=== PATIENT | female | born 1940 | race Caucasian/White ===

== ENCOUNTER 2023-07-16 09:45 | Outpatient (OUT) | payer MEDICARE, OTHER, SELFPAY ==
--- NOTE | 2023-07-16 09:51 | XR_ITS ---
The [address] [address] Patient Name: CAROLINA ZAYAS MRN: [id number] date: 1940 Sex: F Assigned Patient Location: US Current Patient Location: US Accession/Order Number: [id number] Exam Date: 07/16/2023 10:48 Report Date: 07/16/2023 11:27 At the request of: RENETTA REDMOND Procedure: XR abdomen 1V EXAM: XR abdomen 1V HISTORY: Chronic cystitis N30.20 COMPARISON: None. TECHNIQUE: AP view of the abdomen. FINDINGS: Nonobstructive bowel gas pattern is noted. There is no suspicious calcification. The osseous structures are intact. XR/XR abdomen 1V IMPRESSION: Nonobstructive bowel gas pattern. Constipation. No suspicious renal calcification. Electronically authenticated by: BALDO SOTO Date: 07/16/2023 11:27
--- NOTE | 2023-07-16 09:51 | US_ITS ---
The [address] [address] Patient Name: CAROLINA ZAYAS MRN: [id number] date: 1940 Sex: F Assigned Patient Location: US Current Patient Location: US Accession/Order Number: [id number] Exam Date: 07/16/2023 09:58 Report Date: 07/16/2023 17:18 At the request of: RENETTA REDMOND Procedure: US renal BI EXAM: US renal BI HISTORY: Chronic cystitis N30.20 COMPARISON: None. TECHNIQUE: Ultrasound of the kidneys and bladder were obtained. FINDINGS: The right and left kidneys measure 11.8 cm and 11.3 cm respectively. There is normal color flow. There is no solid renal mass. No collecting system dilation. Simple right lower pole cyst, 1.7 cm. Right interpolar cortical 4 mm calcification. The urinary bladder is unremarkable. Prevoid volume of 128 mL. Calcified splenic granulomata. US/US renal BI IMPRESSION: 1. Normal bladder. 2. No evidence for obstructive nephropathy. Electronically authenticated by: NICHELLE PIÑA Date: 07/16/2023 17:18
== END 2023-07-16 09:46 | disposition home or self-care (01) ==
LOC: US 09:45
PROVIDERS: PCP Family Medicine; Visit Provider Physician Assistant
DX: N30.20 Other chronic cystitis without hematuria (principal); N81.4 Uterovaginal prolapse, unspecified
CPT/HCPCS: 74018; 76775

== ENCOUNTER 2024-06-30 08:09 | Outpatient (OUT) | payer MEDICARE, OTHER, SELFPAY ==
--- NOTE | 2024-06-30 08:11 | US_ITS ---
[place] [id number] Patient Name: COREY ZAYAS MRN: [id number] date: 1940 Sex: F Assigned Patient Location: Current Patient Location: Accession/Order Number: [id number] Exam Date: 06/30/2024 08:12 Report Date: 07/01/2024 07:26 At the request of: RENETTA REDMOND Procedure: US renal BI EXAMINATION: US renal BI HISTORY: Kidney Stone COMPARISON: 07/16/2023 TECHNIQUE: Ultrasound examination was performed of the bladder. FINDINGS: Right Kidney: Normal in size, contour and echotexture. The cortex measures 1.1 cm. Areas of anechoic echogenicity measuring up to 1.3 cm, simple cysts. Echogenic foci, nonobstructing nephrolithiasis. No solid cortical mass, hydronephrosis or obstructing nephrolithiasis. Height: 4.79 cm Length: 10.95 cm Width: 5.35 cm Left Kidney: Normal in size, contour and echotexture. The cortex measures 1.0 cm. No solid cortical mass, hydronephrosis or obstructing nephrolithiasis Height: 5.20 cm Length: 11.94 cm Width: 5.11 cm Cholelithiasis observed US/US renal BI IMPRESSION: Nonobstructing right nephrolithiasis Electronically authenticated by: GONZALEZ ELISE Date: 07/01/2024 07:26
--- NOTE | 2024-06-30 08:11 | XR_ITS ---
The [address] [address] Patient Name: COREY ZAYAS MRN: [id number] date: 1940 Sex: F Assigned Patient Location: US Current Patient Location: US Accession/Order Number: [id number] Exam Date: 06/30/2024 08:20 Report Date: 07/01/2024 07:27 At the request of: RENETTA REDMOND Procedure: XR abdomen 1V EXAMINATION: XR abdomen 1V HISTORY: Kidney Stone COMPARISON: 07/16/2023 FINDINGS: KIDNEY/URETER - RIGHT: No visible renal or ureteral calcifications. KIDNEY/URETER - LEFT: No visible renal or ureteral calcifications. PELVIS: No visible ureteral calcifications. Any visible calcifications favor phleboliths. BOWEL: No abnormal dilation or deviation. BONES: No acute abnormality. Right hip arthroplasty. Moderate to severe degenerative changes. Posterior decompression L3 OTHER: Negative. No abnormal gaseous collections. XR/XR abdomen 1V IMPRESSION: No urinary tract calculi observed Electronically authenticated by: GONZALEZ ELISE Date: 07/01/2024 07:27
--- OUTSIDE RECORDS SUMMARY | 2024-06-30 08:12 | XMS_ITS | CCD ---
Author Organization [facility] Care Team Providers Care Food And Drug Inspector Name Role Phone DR GONZALEZ BAIRES Attending Unavailable VIRY, DR ROTH Consulting Unavailable VIRY, DR ROTH Primary Care Unavailable VIRY, DR ROTH Admitting Unavailable Gonzalez Baires Unavailable Tyler Medina Unavailable [phone] Artur Oliveira II Unavailable Rickie Leach Unavailable DO Gonzalez Baires Primary Care Provider MD Artur Oliveira II Attending Provider DO Gonzalez Baires Primary Care Provider MD Artur Oliveira II Attending Provider DO Gonzalez Baires Primary Care Provider MD Artur Oliveira II Attending Provider DO Gonzalez Baires Attending Provider DO Gonzalez Baires Primary Care Provider DO Gonzalez Baires Attending Provider MD Artur Oliveira II Attending Provider [phone] DO Gonzalez Baires Primary Care Provider MD Artur Oliveira II Attending Provider DO Gonzalez Baires Primary Care Provider [phone] MD Artur Oliveira II Attending Provider DO Gonzalez Baires Primary Care Provider [phone] MD Artur Oliveira II Attending Provider DO Gonzalez Baires Attending Provider [phone] DO Gonzalez Baires Primary Care Provider NON STAFF Attending Provider Unavailable Gonzalez Baires Primary Care Physician [phone] MD Vannessa Suresh Attending Provider [phone] DO Gonzalez Baires Primary Care Provider DO Gonzalez Baires Attending Provider GONZALEZ BAIRES Referring Unavailable GONZALEZ BAIRES Primary Care Unavailable DO Gonzalez Baires Primary Care Provider DO Gonzalez Baires Attending Provider MD Vannessa Suresh Attending Provider DO Gonzalez Baires Primary Care Provider [phone] DO Gonzalez Baires Attending Provider [phone] Gonzalez Baires Admitting Unavailable Viry, Gonzalez Attending Unavailable Viry, Gonzalez Admitting Unavailable Viry, Gonzalez Primary Care Unavailable Gonzalez Baires Attending Unavailable Viry, Gonzalez Admitting Unavailable Viry, Gonzalez Primary Care Unavailable Viry, Gonzalez Attending Unavailable Viry, Gonzalez Admitting Unavailable Viry, Gonzalez Primary Care Unavailable Gonzalez Baires Attending Unavailable Viry, Gonzalez Attending Unavailable Viry, Gonzalez Admitting Unavailable Vannessa Suresh Admitting Unavailable Vannessa Suresh Attending Unavailable Viry, Gonzalez Primary Care Unavailable Vannessa Suresh M. Admitting Unavailable LueVannessa M. Attending Unavailable Vannessa Suresh. Referring Unavailable RUYALESSANDRO KEENAN Admitting Unavailab le RUYALESSANDRO Attending Unavailab le ALESSANDRO ZABALA Attending Unavailab ALESSANDRO Sanches Referring Unavailab Gonzalez Sage Referring Unavailable ALESSANDRO ZABALA Attending Unavailab le RUYALESSANDRO Attending Unavailab le RUYALESSANDRO Attending Unavailab le RUY, ALESSANDRO Snow Attending Unavailab le RUYALESSANDRO Attending Unavailab le Allergies Allergy Classification Reported Allergen(s) Allergy Type Date of Onset Reaction(s) Facility (20 sources) atorvastatin; Translations: [atorvastatin] Drug Allergy Muscle pain (finding) [facility] (20 sources) ezetimibe; Translations: [ezetimibe] Drug Allergy Poor short-term memory (finding) [facility] (20 sources) fluticasone / salmeterol; Translations: [fluticasone-sanam meterol] Drug Allergy Unknown [facility] (1 source) Coffee; Translations: [COFFEE] Propensity to adverse reactions to food (disorder) [facility] (1 source) Multivitamin preparation; Translations: [MULTIVITAMIN] Drug Allergy 7 [facility] (1 source) FLUTICASONE PROPION-SALMETER OL; Translations: [FLUTICASONE PROPION-SALMETER OL] Propensity to adverse reactions to drug (disorder) 7 [facility] (1 source) atorvastatin Drug Allergy 4 [facility] (1 source) ezetimibe Drug Allergy 4 [facility] (1 source) fluticasone Drug Allergy 4 [facility] (1 source) salmeterol Drug Allergy 4 [facility] (1 source) atorvastatin; Translations: [Lipitor] Drug Allergy [facility] (1 source) ezetimibe; Translations: [Zetia] Drug Allergy [facility] (1 source) fluticasone / salmeterol; Translations: [Advair Diskus] Drug Allergy [facility] Medications Current Medications Medication Drug Class(es) Dates Sig (Normalized) Sig (Original) 8 hr acetaminophen 650 mg extended release oral tablet (20 sources) Start: 09-29-2022 Acetaminophen (Tylenol 8 Hour) 650 mg Tablet Extended Release Active 1300 MG PO Three times daily September 29, 2022 1:00am Start: 09-26-2022 take 2 tablets by mo uth every eight hours for pain Acetaminophen 500 MG 2 tablets for pain Orally every 8 hrs for 30 days Med to Bed Upon Discharge DOS: 10/13/2022 Sep, Active Start: 09-26-2022 take 2 capsules by m outh every eight hours Tylenol 325 MG 2 capsule as needed Orally 3 times a day Active take 2 capsules by m outh every eight hours Tylenol Active [id number] 200 actuat albuterol 0.09 mg/actuat metered dose inhaler (14 sources) beta2-Adrenergic Agonist Start: 09-29-2022 take 1 puff(s) by inhalation once daily Albuterol Sulfate (Proair Hfa) 90 mcg/actuation Hfa Aerosol Inhaler Active 1 PUFF INHALATION Daily September 29, 2022 1:00am ascorbic acid 500 mg oral tablet (9 sources) Vitamin C Start: 06-23-2022 take 1 tablet by mouth every twenty-four hours Vitamin C 500 MG 1 tablet Orally Once a day for 30 day(s) Jun, Active Aspir-81 81 MG (14 sources) take 1 tablet by mouth once nuha y Aspir-81 81 MG 1 tablet Orally Once a day Active aspirin 81 mg oral capsule (20 sources) Platelet Aggregation Inhibitor, Nonsteroidal Anti-inflammatory Drug Start: 07-09-2023 take 1 mg by mouth every twenty-four hours aspirin 81 mg oral capsule mg cap(s), Oral, q24hr, Refills(s) 0 Start Date: 07/09/23 Status: Ordered Start: 09-26-2022 take 1 capsule by mo uth twice daily Aspirin 81 MG 1 capsule Orally Twice a day for 35 days Med to Bed Upon Discharge DOS: 10/13/2022 Sep, Active Start: 08-17-2018 take 1 tablet by mouth once da aditya Aspirin (Aspir-81) 81 mg Tablet,Delayed Release (Dr/Ec) Active 81 MG PO Daily August 17, 2018 1:00am Baclofen (5 sources) gamma-Aminobutyric Acid-ergic Agonist Start: 10-13-2023 Baclofen 10/Diazepam 10/Gabapentin 60 Baclofen 10/Diazepam 10/Gabapentin 60, Vaginal, Daily Start Date: 10/13/23 Status: Ordered celecoxib (20 sources) Nonsteroidal Anti-inflammatory Drug Start: 03-24-2024 take 1 capsule by mouth twice daily at mealtime Celecoxib Active 0 .ROUTE .COMPLEX 180 March 24, 2024 10:37am take 1 capsule by mouth twice a day with food Start: 09-02-2021 End: 03-24-2024 celecoxib 200 mg Cap 180 EA, 0 Refill(s), take 1 capsule by mouth twice a day with food, Refills(s) 0 Start Date: 07/09/23 Status: Ordered cephalexin 250 mg oral capsule (20 sources) Cephalosporin Antibacterial Start: 12-15-2023 End: 06-12-2024 take 250 mg by mouth every other day Cephalexin Active 250 MG PO .qod April 26, 2024 12:00am Start: 10-22-2023 take 1 capsule by mo uth every twenty-four hours Cephalexin 250 MG 1 capsule Orally Once a day Oct, Active Start: 10-13-2023 End: 04-10-2024 take 1 capsule by mouth every twenty-four hours Keflex 250 mg Cap 250 mg = 1 cap(s), Oral, q24hr, X 90 day(s), # 90 cap(s), Refills(s) 1, [facility]: [id number], 157, cm, 10/13/23 11:13:00 EST, Height/Length Dosing, 68, kg, 10/13/23 11:13:00 EST, Weight Dosing Start Date: 10/13/23 Stop Date: 04/10/24 Status: Ordered Start: 03-20-2023 take 1 capsule by mo uth every eight hours Cephalexin 500 MG 1 capsule Orally tid for 5 days May, Not-Taking/PRN take 1 tablet by elpidio every twenty-four hours Cephalexin 250 MG 1 tablet Orally Once a day will start 10/25 for 3 months Active Zyrtec (20 sources) Histamine-1 Receptor Antagonist Start: 07-09-2023 Zyrtec Daily, Refill s(s) 0 Start Date: 07/09/23 Status: Ordered Start: 03-05-2022 take 10 mg by mouth once daily at bedtime Cetirizine Active 10 MG PO Daily at bedtime September 29, 2022 1:00am Start: 03-05-2022 cholecalciferol 0.05 mg oral capsule (1 source) Vitamin D Start: 04-26-2024 take 2000 [IU] by mouth once daily Cholecalciferol (Vitamin D3) Active 2000 UNIT PO Daily April 26, 2024 12:00am ciprofloxacin 500 mg oral tablet (13 sources) Quinolone Antimicrobial Start: 07-27-2023 End: 07-30-2023 take 1 tablet by mouth every twelve hours Cipro 500 mg Tab 500 mg = 1 tab(s), Oral, q12hr, X 3 day(s), # 6 tab(s), Refills(s) 0, [facility]: [facility] #[id number], 157, cm, 07/17/23 12:31:00 EDT, Height/Length Dosing, 68.4, kg, 07/14/23 10:02:00 EDT, Weight Dosing Start Date: 07/27/23 Stop Date: 07/30/23 Status: Ordered Start: 04-24-2021 take 1 tablet by elpidio th every twelve hours Cipro 500 MG 1 tablet Orally bid Apr, Not-Taking Co Q10 200 MG (1 source) take 1 capsule by mouth once daily Co Q10 200 MG 1 capsule with a meal Orally Once a day Active CoQ10 (8 sources) Start: 07-09-2023 CoQ10 Oral, Daily, Refills(s) 0 Start Date: 07/09/23 Status: Ordered Cranberry preparation (9 sources) Non-Standardized Food Allergenic Extract, Non-Standardized Plant Allergenic Extract Cranberry Active docusate sodium 50 mg / sennosides, snf 8.6 mg oral tablet (7 sources) Start: 09-26-2022 take 2 tablets by mouth every twenty-four hours Senokot S 8.6-50 MG 2 tablets Orally Once a day for 30 day(s) Med to Bed Upon Discharge DOS: 10/13/2022 Sep, Active estradiol 0.1 mg/ml vaginal cream (8 sources) Estrogen Start: 06-23-2024 Estrace 0.1 mg/g Cream 1 gm, Vaginal, As Directed, 42.5 gm, Refill(s) 1, Apply a pea-sized amount to the vagina/urethra 3x per week for maintenance, [facility] #[id number], 157, cm, 06/23/24 9:18:00 EDT, Height/Length Dosing, 68.1, kg, 06/23/24 9:18:00 EDT, Weight Dosing Start Date: 06/23/24 Status: Ordered Start: 07-14-2023 Estrace 0.1 mg /g Cream 1 gm, Vaginal, As Directed, 42.5 gm, Refill(s) 1, Apply a pea-sized amount to the vagina/urethra nightly x 3wks then 3x per week for maintenance, [facility] #[id number], 157, cm, 07/14/23 10:02:00 EDT, Height/Length Dosing, 68.4, kg, 07/14/23 10:02:00 EDT, Weight Dosing Start Date: 07/14/23 Status: Ordered levoFLOXacin 500 mg oral tablet (1 source) Quinolone Antimicrobial Start: 10-22-2023 take 1 tablet by mouth every twenty-four hours levoFLOXacin 500 MG 1 tablet Orally Once a day Oct, Active Magnesium (20 sources) Start: 04-26-2024 take 250 mg by mouth once daily Magnesium Active 250 MG PO Daily April 26, 2024 12:00am Start: 08-17-2018 End: 09-29-2022 take 250 mg by mouth twice daily Magnesium Discontinued 250 MG PO Twice daily August 17, 2018 1:00am September 29, 2022 3:24pm Start: 08-17-2018 End: 09-29-2022 take 250 mg by mouth twice daily Magnesium Discontinued 250 MG PO Twice daily August 17, 2018 12:00am September 29, 2022 2:24pm Start: 08-17-2018 take 250 mg by mouth twice daily Magnesium Active 250 MG PO Twice daily August 17, 2018 12:00am Start: 08-17-2018 take 250 mg by mouth twice daily Magnesium Active 250 MG PO Twice daily August 17, 2018 1:00am take 1 tablet by elpidio th twice daily Magnesium 250 MG 1 tablet with a meal Orally bid Active 24 hr mirabegron 50 mg extended release oral tablet (6 sources) beta3-Adrenergic Agonist Start: 10-13-2023 End: 06-18-2025 take 1 tablet by mouth once daily Myrbetriq 50 mg oral tablet, extended release 50 mg = 1 tab(s), Oral, Daily, X 90 day(s), # 90 tab(s), Refills(s) 3, Pharmacy: [facility] #[id number], 157, cm, 06/23/24 9:18:00 EDT, Height/Length Dosing, 68.1, kg, 06/23/24 9:18:00 EDT, Weight Dosing Start Date: 06/23/24 Stop Date: 06/18/25 Status: Ordered nitrofurantoin, macrocrystals 50 mg oral capsule (2 sources) Nitrofuran Antibacterial Start: 06-17-2023 take 1 capsule by mouth once daily at mealtime Nitrofurantoin Macrocrystal 50 MG 1 capsule Orally qd with food for 30 days Jun, Active Miralax (20 sources) Osmotic Laxative Start: 07-09-2023 take 1 g by mouth once daily MiraLax gm, Oral, Daily, Refill(s) 0 Start Date: 07/09/23 Status: Ordered Start: 09-26-2022 MiraLax 17 GM 1 packet mixed with 8 ounces of fluid Orally Once a day for 7 days Med to Bed Upon Discharge DOS: 10/13/2022 Sep, Active Start: 04-23-2021 End: 04-26-2024 Polyethylene Glycol 3350 (Mi ralax) 17 gram Powder In Packet Discontinued 8.5 GM PO Daily April 23, 2021 12:00am April 26, 2024 10:37am Start: 04-23-2021 Polyethylene G lycol 3350 (Miralax) 17 gram Powder In Packet Active 17 GM PO Daily April 22, 2021 11:00pm MiraLax - as dir ected Orally Once a day Active predniSONE 20 mg oral tablet (2 sources) Start: 04-30-2022 take 1 tablet by mouth every eight hours predniSONE 20 MG 1 tablet Orally 3 times a day for 5 days Apr, Active probiotic (1 source) Start: 04-26-2024 probiotic Acti ve PO April 26, 2024 12:00am Sennosides (Senokot) 8.6 mg tablet (1 source) Start: 04-26-2024 take 2 tablets by mouth once daily at bedtime Sennosides (Senokot) 8.6 mg tablet Active 17.2 MG PO Daily at bedtime April 26, 2024 12:00am sertraline 25 mg oral tablet (20 sources) Serotonin Reuptake Inhibitor Start: 10-01-2022 take 1 tablet by mouth every twenty-four hours Zoloft 25 MG 1 tablet Orally Once a day Sep, Active ubidecarenone 200 mg oral capsule (20 sources) take 1 capsule by mouth every twenty-four hours Co Q10 200 MG 1 capsule with a meal Orally Once a day Active ubiquinol 200 mg oral capsule (16 sources) Start: 08-17-2018 take 200 mg by mouth once daily Coq10 (Ubiquinol) Active 200 MG PO Daily August 17, 2018 1:00am vibegron 75 MG Oral Tablet [Gemtesa] (2 sources) Start: 07-27-2023 take 1 tablet by mouth once daily Gemtesa 75 mg oral tablet 75 mg = 1 tab(s), Oral, Daily, # 30 tab(s), Refills(s) 11, [facility]acy: [facility] #[id number], 157, cm, 07/17/23 12:31:00 EDT, Height/Length Dosing, 68.4, kg, 07/14/23 10:02:00 EDT, Weight Dosing Start Date: 07/27/23 Status: Ordered Completed/Discontinued Medications Medication Drug Class(es) Dates Sig (Normalized) Sig (Original) amitriptyline hydrochloride 25 mg oral tablet (16 sources) Tricyclic Antidepressant Start: 08-17-2018 End: 09-29-2022 take 25 mg by mouth once daily Amitriptyline Discontinued 25 MG PO Daily August 17, 2018 1:00am September 29, 2022 3:26pm bisacodyl 5 mg delayed release oral tablet (16 sources) Stimulant Laxative Start: 04-04-2019 End: 09-29-2022 take 4 tablets by mouth once daily Bisacodyl (Dulcolax (Bisacodyl)) 5 mg Tablet,Delayed Release (Dr/Ec) Discontinued 4 TAB PO Daily April 04, 2019 12:00am September 29, 2022 3:25pm ergocalciferol 1.25 mg oral capsule (20 sources) Provitamin D2 Compound Start: 09-29-2022 End: 04-26-2024 take 1 capsule by mouth every week Ergocalciferol (Vitamin D2) (Vitamin D2) 1,250 mcg (50,000 unit) capsule Discontinued 1250 MCG PO every week September 29, 2022 1:00am April 26, 2024 10:38am wednesdays take 1 capsule by mouth every we ek Ergocalciferol 1.25 MG (19320 UT) 1 capsule Orally once a week for 30 day(s) Active esomeprazole 20 mg delayed release oral capsule (16 sources) Proton Pump Inhibitor Start: 08-17-2018 End: 04-23-2021 take 1 capsule by mouth once daily Esomeprazole Magnesium (Nexium) 20 mg Capsule,Delayed Release(Dr/Ec) Discontinued 20 MG PO Daily August 17, 2018 1:00am April 23, 2021 1:05pm ferrous sulfate 325 mg oral tablet (20 sources) Start: 06-23-2022 End: 04-26-2024 take 1 tablet by mouth three times daily Ferrous Sulfate (Ferosul) 325 mg (65 mg iron) tablet Discontinued 325 MG PO Three times daily September 29, 2022 1:00am April 26, 2024 10:37am hydrOXYzine hydrochloride 10 mg oral tablet (16 sources) Antihistamine Start: 08-17-2018 End: 09-29-2022 take 10 mg by mouth once daily Hydroxyzine Hcl Discontinued 10 MG PO Daily August 17, 2018 1:00am September 29, 2022 3:24pm magnesium oxide 400 mg oral tablet (16 sources) Start: 08-17-2018 End: 04-04-2019 take 400 mg by mouth once daily Magnesium Oxide Discontinued 400 MG PO Daily August 17, 2018 1:00am April 04, 2019 12:32pm nitrofurantoin, macrocrystals 25 mg / nitrofurantoin, monohydrate 75 mg oral capsule (9 sources) Nitrofuran Antibacterial Start: 04-08-2023 take 1 capsule by mouth every twelve hours Macrobid 100 MG 1 capsule with food Orally bid for 7 days Mar, Not-Taking/PRN omeprazole 40 mg delayed release oral capsule (20 sources) Proton Pump Inhibitor Start: 09-28-2018 End: 03-08-2024 omeprazole 40 mg Cap-DR 90 EA, 0 Refill(s), take 1 capsule by mouth once daily, Refills(s) 0 Start Date: 07/09/23 Status: Ordered ondansetron 8 mg oral tablet (7 sources) Serotonin-3 Receptor Antagonist Start: 09-26-2022 take 1 tablet by mouth three times daily as needed for nausea Ondansetron HCl 8 MG 1 tablet as needed for nausea Orally Three times a day for 10 days Med to Bed Upon Discharge DOS: 10/13/2022 Sep, Not-Taking oxaprozin 600 mg oral tablet (16 sources) Nonsteroidal Anti-inflammatory Drug Start: 08-17-2018 End: 09-29-2022 take 600 mg by mouth once daily Oxaprozin Discontinued 600 MG PO Daily August 17, 2018 1:00am September 29, 2022 3:25pm rosuvastatin calcium 10 mg oral tablet (20 sources) HMG-CoA Reductase Inhibitor Start: 05-21-2017 rosuvastatin 10 mg Tab 90 EA, 0 Refill(s), take 1 tablet by mouth once daily, Refills(s) 0 Start Date: 07/09/23 Status: Ordered Problems Active Problems Problem Classification Problem Date Documented Da te Episodic/Chronic Abdominal hernia (20 sources) Hiatal hernia; Translations: [Diaphragmatic hernia without obstruction or gangrene] Episodic Anxiety disorders (20 sources) Social phobia; Translations: [Social phobia, unspecified] Chronic Asthma (20 sources) Asthma; Translations: [Unspecified asthma, uncomplicated] Onset: 09-02-2021 Resolved: 03-05-2022 Chronic Calculus of urinary tract (10 sources) Kidney stone; Translations: [Calculus of kidney] Onset: 09-01-2023 Episodic Cardiac dysrhythmias (20 sources) Premature beats; Translations: [Other premature depolarization] Chronic Diabetes mellitus without complication (14 sources) Hyperglycemia, unspecified; Translations: [Hyperglycemia] Onset: 09-02-2021 Resolved: 03-05-2022 Episodic Diseases of white blood cells (20 sources) Leukocytosis; Translations: [Elevated white blood cell count, unspecified] Chronic Disorders of lipid metabolism (20 sources) Hyperlipidemia, unspecified; Translations: [Hyperlipidemia] Onset: 02-22-2021 Resolved: 03-05-2022 Chronic Esophageal disorders (20 sources) Stricture of esophagus; Translations: [Esophageal obstruction] Onset: 09-02-2021 Resolved: 05-06-2022 Chronic Genitourinary symptoms and ill-defined conditions (12 sources) Bladder pain; Translations: [Chronic bladder pain] Onset: 07-27-2023 Chronic Genitourinary symptoms and ill-defined conditions (2 sources) Nocturia Onset: 03-05-2022 Resolved: 03-05-2022 Episodic Menopausal disorders (1 source) Atrophic vaginitis; Translations: [Postmenopausal atrophic vaginitis] Onset: 07-27-2023 Chronic Nutritional deficiencies (20 sources) Vitamin D deficiency; Translations: [Vitamin D deficiency, unspecified] Chronic Osteoarthritis (20 sources) Arthritis; Translations: [Unspecified osteoarthritis, unspecified site] Onset: 09-02-2021 Resolved: 03-05-2022 Chronic Osteoporosis (20 sources) Primary osteoporosis; Translations: [Age-related osteoporosis without current pathological fracture] Chronic Other acquired deformities (20 sources) Acquired postural kyphosis; Translations: [Unspecified kyphosis, thoracic region] Chronic Other acquired deformities (1 source) Unspecified kyphosis, thoracic region Onset: 09-02-2021 Resolved: 09-02-2021 Chronic Other aftercare (20 sources) Patient encounter status; Translations: [Aftercare following joint replacement surgery] Chronic Other aftercare (3 sources) Aftercare following joint replacement surgery Chronic Other aftercare (6 sources) Other correction (current) drug therapy; Translations: [[employer] WORKER CURRENT DRUG THERAPY] Onset: 02-27-2021 Resolved: 03-05-2022 Episodic Other connective tissue disease (20 sources) Hip joint prosthesis present; Translations: [Presence of right artificial hip joint] Chronic Other connective tissue disease (20 sources) History of total hip arthroplasty; Translations: [Presence of right artificial hip joint] Chronic Other connective tissue disease (6 sources) Presence of right artificial hip joint Chronic Other diseases of bladder and urethra (5 sources) Detrusor overactivity; Translations: [Overactive bladder] Onset: 07-27-2023 Chronic Other diseases of bladder and urethra (6 sources) Overactive bladder 09-01-2023 Chronic Other diseases of bladder and urethra (1 source) Urethral stricture; Translations: [Other urethral stricture, female] Onset: 07-27-2023 Episodic Other gastrointestinal disorders (20 sources) Dysphagia; Translations: [Dysphagia, unspecified] Episodic Other gastrointestinal disorders (16 sources) Constipation; Translations: [Constipation, unspecified] 07-14-2023 Episodic Other gastrointestinal disorders (4 sources) Constipation, unspecified; Translations: [Constipation, unspecified] Onset: 07-14-2023 Episodic Other nervous system disorders (1 source) Paresthesia of hand ; Translations: [Anesthesia of skin] 04-26-2024 Episodic Other nervous system disorders (1 source) Anesthesia of skin; Translations: [Disturbance of skin sensation] 04-26-2024 Episodic Other non-traumatic joint disorders (20 sources) Arthropathy; Translations: [Arthropathy, unspecified] Chronic Other non-traumatic joint disorders (3 sources) Pain in right hip Onset: 03-19-2022 Resolved: 03-19-2022 Episodic Other non-traumatic joint disorders (2 sources) Pain in right knee Onset: 03-19-2022 Resolved: 03-19-2022 Episodic Other nutritional; endocrine; and metabolic disorders (1 source) Abnormal weight loss; Translations: [ABNORMAL WEIGHT LOSS] Onset: 02-27-2021 Episodic Other nutritional; endocrine; and metabolic disorders (4 sources) Abnormal weight gain Onset: 09-02-2021 Resolved: 03-05-2022 Episodic Other screening for suspected conditions (not mental disorders or infectious disease) (20 sources) Mammography abnormal; Translations: [Other abnormal and inconclusive findings on diagnostic imaging of breast] Onset: 09-02-2021 Resolved: 03-05-2022 Episodic Prolapse of female genital organs (10 sources) Uterovaginal prolapse; Translations: [Uterovaginal prolapse, unspecified] Onset: 07-14-2023 Chronic Spondylosis; intervertebral disc disorders; other back problems (8 sources) Degeneration of lumbar intervertebral disc 07-09-2023 Chronic Urinary tract infections (2 sources) Chronic cystitis; Translations: [Other chronic cystitis without hematuria] Onset: 07-14-2023 Chronic Urinary tract infections (20 sources) Cystitis, unspecified without hematuria; Translations: [Recurrent urinary tract infection] Onset: 09-02-2021 Resolved: 03-05-2022 Episodic Past or Other Problems Problem Classification Problem Date Documented Da te Episodic/Chronic Malaise and fatigue (2 sources) Weakness Onset: 09-02-2021 Resolved: 03-05-2022 Episodic Other and unspecified benign neoplasm (1 source) Benign lipomatous neoplasm, unspecified Onset: 03-05-2022 Resolved: 03-05-2022 Episodic Other connective tissue disease (1 source) Pain in leg, unspecified Onset: 09-02-2021 Resolved: 09-02-2021 Episodic Other non-traumatic joint disorders (2 sources) Pain in unspecified hip Onset: 09-02-2021 Resolved: 03-05-2022 Episodic Residual codes; unclassified (1 source) Asymptomatic menopausal state Onset: 09-02-2021 Resolved: 09-02-2021 Episodic Residual codes; unclassified (1 source) Acquired absence of other genital organ(s) Onset: 09-02-2021 Resolved: 12-20-2021 Episodic Spondylosis; intervertebral disc disorders; other back problems (2 sources) Pain in thoracic spine; Translations: [Cervicalgia] Onset: 09-02-2021 Resolved: 09-02-2021 Episodic Results Test Name Value Interpretation Reference Range Facility Ambulatory Visit Summaryon 1 Ambulatory Visit Summary Ambulatory Visit Summary CAROLINA BARAJAS :1940 Visit Date:06/23/2024 Ambulatory Visit Instructions Your Diagnosis Frequent UTI Chronic bladder pain Kidney stones [facility] (overactive bladder) Your Care Team Attending Physician - MARY ZABALA PA-C Primary Care Physician - Gonzalez Baires DO This Is Your Medications List estradiol topical (Estrace 0.1 mg/g Cream) mirabegron (Myrbetriq 50 mg oral tablet, extended release) Contact prescribing physician if questions or concerns Non-Formulary Medication (Baclofen 10/Diazepam 10/Gabapentin 60) aspirin (aspirin 81 mg oral capsule) celecoxib (celecoxib 200 mg Cap) cetirizine (Zyrtec) omeprazole (omeprazole 40 mg Cap-DR) rosuvastatin (rosuvastatin 10 mg Tab) ubiquinone (CoQ10) Procedures Performed Cystourethroscopy with dilation of urethral stricture (07/27/2023), Cystoscopy (02/20/2015), Cystocele (1996), Female rectocele (1996), Tonsillectomy (1950), Cataract, Colonoscopy, Hip replacement, Hysterectomy, Knee. Discharge Vitals Heart Rate (Peripheral) 60 Respiratory Rate 19 Blood Pressure 148/74 Height 157 cm Height 62 in Weight 68.1 kg Weight 149.82 lb BMI 27.63 Medications What How Much When Instructions Changed estradiol topical (Estrace 0.1 mg/ g Cream) 1 Gram Vaginal As Directed Apply a pea-sized amount to the vagina/ urethra 3x per week for maintenance Pickup at [facility] Unchanged mirabegron (Myrbetriq 50 mg oral tablet, extended release) 1 Tablets By Mouth Every day Duration: 90 Days Pickup at [facility] Unchanged aspirin (aspirin 81 mg oral capsule) By Mouth Every 24 hours Contact prescribing physician if questions or concerns Unchanged celecoxib (celecoxib 200 mg Cap) 180 EA, 0 Refill(s), take 1 capsule by mouth twice a day with food Contact prescribing physician if questions or concerns Unchanged cetirizine (Zyrtec) Every day Contact prescribing physician if questions or concerns Unchanged Non-Formulary Medication (Baclofen 10/ Diazepam 10/ Gabapentin 60) Vaginal Every day Contact prescribing physician if questions or concerns Unchanged omeprazole (omeprazole 40 mg Cap-DR) 90 EA, 0 Refill(s), take 1 capsule by mouth once daily Contact prescribing physician if questions or concerns Unchanged rosuvastatin (rosuvastatin 10 mg Tab) 90 EA, 0 Refill(s), take 1 tablet by mouth once daily Contact prescribing physician if questions or concerns Unchanged ubiquinone (CoQ10) By Mouth Every day Contact prescribing physician if questions or concerns Pharmacy Information [facility]: [address] [place], [place] [id number] [phone] Allergies Advair Diskus Lipitor (Myalgia) Zetia (Short term memory loss) Problems Ongoing - Any problem that you are currently receiving treatment for. Anxiety Arthritis Asthma Chronic bladder pain Constipation Cystocele with rectocele DDD (degenerative disc disease), lumbar Frequent UTI Hyperglycemia Hyperlipidemia Kidney stones OAB (overactive bladder) Patient Survey You may receive a survey via text or e-mail asking about your office visit. Please share your experience with us by completing your survey. We appreciate your feedback and thank you for choosing us for your care. Normal [facility] Reminderson 06-23-2024 Reminders Reminders From: Kya Cline To: [place] - Administrative; Sent: 06/23/2024 11:24:48 EDT Show up: 09/23/2024 11:24:00 EST Subject: Ambulatory Reminder Due Date/Time: 12/22/2024 11:24:00 EDT Reminder/Recall Patient needs scheduled with for a 6m f/u, due back December 2024 Normal [facility] Reminders Reminders From: Amanda Clark To: EU - Administrative; Sent: 06/23/2024 09:42:37 EDT Show up: 10/15/2024 09:42:00 EST Subject: f/u in Spring Due Date/Time: 11/07/2024 09:42:00 EST Reminder/Recall Patient needs f/u with Christel Zabala in the Spring 2024 Normal [facility] Urology Office/Clinic Noteon 06-23-2024 Urology Office/Clinic Note Urology Office/Clinic Note Chief Complaint 6 month HPI Staff 84 yr old here for 6 mth f/u DX: Chronic Bladder Pain, Frequent UTI, OAB & Kidney Stone. S/P Cysto/UD 07/27/[address] Suresh Pt. taking Myrbetriq 50mg qd and Estrace cream 3x/week Dysuria: no Incomplete bladder emptying: no Hematuria: UA shows trace today Frequency: 2-3 hours Urgency: no Nocturia: 2x's Stream: slow stream Post void dripping: no Wearing pads/ Depends: no Urge incontinence: rarely Stress incontinence: no Incontinence without Sensory Awareness: no Abdominal pain: occasionally will have pressure Flank pain: no Review of Systems PHQ Score Initial Depression Screen Score: 0 SCORE no fever, chills, malaise, myalgia. no rash/lesions. no chest pain, palpitations, or SOB. no abdominal pain, nausea, vomiting. no unilateral calf swelling, redness, pain Physical Exam Vitals & Measurements HR: 60(Peripheral) RR: 19 BP: 148/74 HT: 62 in HT: 157 cm WT: 68.1 kg WT: 149.82 lb BMI: 27.63 General: nontoxic, NAD Mouth: moist mucosa Lungs: normal respiratory effort Cardio: regular rate, good distal perfusion Abdomen: nondistended, no suprapubic distention or tenderness, no CVA tenderness Neurologic: Grossly normal Skin: No rashes or suspicious lesions Assessment/Plan 1. Frequent UTI (N39.0: Urinary tract infection, site not specified) Last UTI was Sep 2023. UA today shows TRACE intact blood only. Asx. Uses Estrace cream 3x/wk. Pt not on OTC preventives, could not tolerate d-mannose/cranberry. 10/13/23 we had her start low dose keflex (250mg) daily x 90 days. Reduced this to QOD 12/15/23. TODAY: Pt now reports she only takes the Keflex every now and then if she starts to feel a slight burn. Risks/benefits discussed. Pt ok remaining w this plan for now. Will call when she needs a refill. Continues on Estrace. Risks/benefits discussed. Pt ok remaining on. Refilled today. Ordered: Complex E&M Add on G2211 E&M of Est. Patient Moderate 30-39 Min 58230 Urnls Dip Stick Auto w/o Microscopy POC 37073 2. Chronic bladder pain (R39.82: Chronic bladder pain) S/p Cysto/UD 07/27/[address] Suresh. Marked improvement immediately following UD, approx 80% better per pt. Did not last. Per PFPT at [facility] [place]: PE - extensive spasming and scarring. External myofascial release and stretching but only provides relief of pain x24hrs. Pt has been doing down-training and stretching at home. Pain 1/10 for 24hrs after PT, 7/10 otherwise. Constant. Azo helps some. Better after passing flatus. Worse after urination and prolonged sitting. 10/13/23 we started compounded vaginal suppository via [facility] - Baclofen 10mg/Diazepam 10mg/Gabapentin 60mg. Pt reports she Stopped taking suppository after a few weeks due to vaginal soreness. Continued PFPT at [facility] [place], using pelvic wand and doing stretching w good results. TODAY: Has good days and bad days, but overall much better than when she first started coming here. Will have sometimes week and month long stretches with no symptoms. When pain returns, she will take Keflex x 2 days and increase her PFPT stretching and this resolves sx. Very pleased w overall urinary status. Ordered: Complex E&M Add on G2211 E&M of Est. Patient Moderate 30-39 Min 74948 US Renal 3. Kidney stones (N20.0: Calculus of kidney) KATI 07/16/23 [facility] - simple RLP 1.7 cm cyst. R interpolar cortical 4 mm stone. KUB 07/16/23 [facility] - no stones id'd. TODAY: No recent flank pain, gross hematuria, stone passage. Will update imaging. -KUB/KATI now. Call pt w results. Ordered: Complex E&M Add on G2211 E&M of Est. Patient Moderate 30-39 Min 24106 US Renal XR Abdomen 1 View 4. OAB (overactive bladder) (N32.81: Overactive bladder) S/p Cysto/UD 07/27/[address] Suresh. [facility] MIX'sepideh due to cost. Started Myrbetriq 50mg. Not a candidate for antichols. TODAY: Pt is taking __Myrbetriq 50mg and is highly satisfied with overall symptom control. BBSQ _9 with good control reported by pt. Current side effects: none Today we discussed the following options: Decrease dose yes, this was discussed Increase dose n/a Discontinue med and switch to alternative yes, this was discussed Pt has elected to: stay on same medication at same dose. Risks, benefits, side effects discussed. Ordered: Complex E&M Add on G2211 E&M of Est. Patient Moderate 30-39 Min 26646 US Renal Orders: estradiol topical, 1 gm, Vaginal, As Directed, 42.5 gm, Refill(s) 1, Apply a pea-sized amount to the vagina/urethra 3x per week for maintenance, [facility], 157, cm, 06/23/24 9:18:00 EDT, Height/Length Dosing, 68.1, kg, 06/23/24 9:18:00 EDT, Weight Dosing mirabegron, 50 mg = 1 tab(s), Oral, Daily, X 90 day(s), # 90 tab(s), Refills(s) 3, Pharmacy: [facility], 157, cm, 06/23/24 9:18:00 EDT, Height/Length Dosing, 68.1, kg, 06/23/24 9:18:00 EDT, Weight Dosing Follow-up With When Contact Information MARY ZABALA PA-C, URL Wi (more content not included)... Normal [facility] Comment on above: Result Comment: Elec tronically Signed By: MARY ZABALA PA-C\.br\Date and Time Signed: 06/23/24 09:43 EDT A1C with Estimated Average G kaden 04-19-2024 Glucose [Mass/Vol] 117 mg/dL Normal [facility] Comment on above: Result Comment: PERF ORMED BY: [facility] [address] [place] [address] PATHOLOGIST FIELD SERVICE CONSULTANT MARBIN BANKS M.D. Performed By: #### C BC, A1C WTH eA, CMP, LIPID #### [facility] [address] Alanine aminotransferase [En zymatic activity/volume] in Serum or PlasmaOrdered By: Gonzalez Baires on 04-19-2024 ALT [Catalytic activity/Vol] 17 U/L Normal 7-52 [facility] Comment on above: Performed By: #### C BC, A1C WTH eA, CMP, LIPID #### [facility] [address] [place] [address] [place] Albumin [Mass/volume] in Ser um or Plasma by Bromocresol green (BCG) dye binding methoOrdered By: Gonzalez Baires on 04-19-2024 Albumin BCG dye [Mass/Vol] 3.9 g/dL 3.5-5.7 [facility] Alkaline phosphatase [Enzyma tic activity/volume] in Serum or PlasmaOrdered By: Gonzalez Baires on 04-19-2024 ALP [Catalytic activity/Vol] 74 U/L Normal 34-104 [facility] Comment on above: Performed By: #### C BC, A1C WTH eA, CMP, LIPID #### [address] Aspartate aminotransferase [ Enzymatic activity/volume] in Serum or PlasmaOrdered By: Gonzalez Baires on 04-19-2024 AST [Catalytic activity/Vol] 24 U/L Normal 13-39 [facility] Comment on above: Performed By: #### C BC, A1C WTH eA, CMP, LIPID #### [address] Automated basophil %Ordered By: Gonzalez Baires on 04-19-2024 Basophils/100 WBC (Bld) 0.4 % Normal . [facility] Comment on above: Performed By: #### C BC, A1C WTH eA, CMP, LIPID #### [address] Automated basophil countOrde red By: Gonzalez Baires on 04-19-2024 Basophils (Bld) [#/Vol] 0.0 10*3/uL Normal 0.0-0.2 [facility] Comment on above: Result Comment: PERF ORMED BY: [place] [address] PATHOLOGIST FIELD SERVICE CONSULTANT MARBIN BANKS M.D. Performed By: #### C BC, A1C WTH eA, CMP, LIPID #### [address] Automated blood monocyte cou ntOrdered By: Gonzalez Baires on 04-19-2024 Monocytes (Bld) [#/Vol] 0.6 10*3/uL Normal 0.0-0.8 [facility] Comment on above: Performed By: #### C BC, A1C WTH eA, CMP, LIPID #### [address] Automated eosinophil %Ordere d By: Gonzalez Baires on 04-19-2024 Eosinophils/100 WBC (Bld) 3.7 % Normal . [facility] Comment on above: Performed By: #### C BC, A1C WTH eA, CMP, LIPID #### [address] Automated eosinophil countOr dered By: Gonzalez Baires on 04-19-2024 Eosinophils (Bld) [#/Vol] 0.2 10*3/uL Normal 0.0-0.45 [facility] Comment on above: Performed By: #### C BC, A1C WTH eA, CMP, LIPID #### [address] Automated monocyte %Ordered By: Gonzalez Baires on 04-19-2024 Monocytes/100 WBC (Bld) 10.2 % Normal . [facility] Comment on above: Performed By: #### C BC, A1C WTH eA, CMP, LIPID #### [address] Automated neutrophil %Ordere d By: Gonzalez Baires on 04-19-2024 Neutrophils/100 WBC (Bld) 62.3 % Normal . [facility] Comment on above: Performed By: #### C BC, A1C WTH eA, CMP, LIPID #### [address] Bilirubin.total [Mass/volume ] in Serum or PlasmaOrdered By: Gonzalez Baires on 04-19-2024 Bilirubin [Mass/Vol] 0.5 mg/dL Normal 0.3-1.0 [facility] Comment on above: Performed By: #### C BC, A1C WTH eA, CMP, LIPID #### [facility] [address] [place] [address] [place] Calcium [Mass/volume] in Ser um or PlasmaOrdered By: Gonzalez Baires on 04-19-2024 Calcium [Mass/Vol] 9.1 mg/dL Normal 8.6-10.[address] [facility] Comment on above: Performed By: #### C BC, A1C WTH eA, CMP, LIPID #### [facility] [address] Carbon dioxide, total [Moles /volume] in Serum or PlasmaOrdered By: Gonzalez Baires on 04-19-2024 CO2 [Moles/Vol] 28.1 mmol/L Normal 21.0-31.0 [facility] Comment on above: Performed By: #### C BC, A1C WTH eA, CMP, LIPID #### [facility] [address] [place] [address] [place] Chloride [Moles/volume] in S josué or PlasmaOrdered By: Gonzalez Baires on 04-19-2024 Chloride [Moles/Vol] 108 mmol/L High 98-107 [facility] Comment on above: Performed By: #### C BC, A1C WTH eA, CMP, LIPID #### [facility] [address] [place] [address] [place] Cholesterol [Mass/volume] in Serum or PlasmaOrdered By: Gonzalez Baires on 04-19-2024 Cholesterol [Mass/Vol] 161 mg/dL Normal 140-200 [facility] Comment on above: Chol less than 200 m g/dl low riskChol 201-239 mg/dl borderline riskChol 240 mg/dl and greater high risk Result Comment: Chol less than 200 mg/dl low risk Chol 201-239 mg/dl borderline risk Chol 240 mg/dl and greater high risk Performed By: #### C BC, A1C WTH eA, CMP, LIPID #### [facility] [address] Cholesterol in LDL Calc [Mas s/Vol]Ordered By: Gonzalez Baires on 04-19-2024 Cholesterol in LDL [Mass/Vol] 83 mg/dL 0-100 [facility] Comment on above: LDL ATP III CLASSIFI CATIONLDL less than 100 mg/dL OptimalLDL 100-129 mg/dL Near or above optimalLDL 130-159 mg/dL Borderline highLDL 160-189 mg/dL HighLDL greater than 189 mg/dL Very high Cholesterol in VLDL Calc [Ma ss/Vol]Ordered By: Gonzalez Baires on 04-19-2024 Cholesterol in VLDL [Mass/Vol] 15 mg/dL [facility] Complete Blood Count Auto Di ffon 04-19-2024 Mean Corpuscular HGB Conc 33.3 g/dL Normal 32.0-35.0 [facility] Comment on above: Performed By: #### C BC, A1C WTH eA, CMP, LIPID #### [address] NRBC% 0.1 /100{WBC} Normal 0-0.5 [facility] Comment on above: Performed By: #### C BC, A1C WTH eA, CMP, LIPID #### [facility] [address] [place] [address] Comprehensive Metabolic Pane sonny 04-19-2024 Albumin [Mass/Vol] 3.9 g/dL Normal 3.5-5.7 [facility] Comment on above: Performed By: #### C BC, A1C WTH eA, CMP, LIPID #### [facility] [address] [place] [address] [place] GFR/1.73 sq M.predicted MDRD (S/P/Bld) [Vol rate/Area] mL/min/{1.73_m2} Normal [facility] Comment on above: Performed By: #### C BC, A1C WTH eA, CMP, LIPID #### [address] Creatinine [Mass/volume] in Serum or PlasmaOrdered By: Gonzalez Baires on 04-19-2024 Creatinine [Mass/Vol] 0.80 mg/dL Normal 0.60-1.20 [facility] Comment on above: Performed By: #### C BC, A1C WTH eA, CMP, LIPID #### [facility] [address] Erythrocyte distribution wid th [Ratio] by Automated countOrdered By: Gonzalez Baires on 04-19-2024 Erythrocyte distribution width (RBC) [Ratio] 13.2 % Normal 11.9-15.3 [facility] Comment on above: Performed By: #### C BC, A1C WTH eA, CMP, LIPID #### [facility] [address] Erythrocytes [#/volume] in B lood by Automated countOrdered By: Gonzalez Baires on 04-19-2024 RBC (Bld) [#/Vol] 4.62 10*6/uL Normal 3.60-5.00 [facility] Comment on above: Performed By: #### C BC, A1C WTH eA, CMP, LIPID #### [facility] [address] Glucose [Mass/volume] in Ser um or PlasmaOrdered By: Gonzalez Baires on 04-19-2024 Glucose [Mass/Vol] 89 mg/dL Normal 70-[address] [facility] Comment on above: ADA recommended refe rence rangeRandom Glucose Reference Range is dependent on time and content of last meal. Glucose of more than 200 mg/dL in a nonstressed, ambulatory subject supports the diagnosis of Diabetes Mellitus. Result Comment: [place] om Glucose Reference Range is dependent on time and content of last meal. Glucose of more than 200 mg/dL in a nonstressed, ambulatory subject supports the diagnosis of Diabetes Mellitus. ADA recommended reference range Performed By: #### C BC, A1C WTH eA, CMP, LIPID #### [facility] [address] Glucose mean value [Mass/vol ume] in Blood Estimated from glycated hemoglobinOrdered By: Gonzalez Baires on 04-19-2024 Average glucose Estimated from glycated hemoglobin (Bld) [Mass/Vol] 117 mg/dL [facility] Hematocrit [Volume Fraction] of Blood by Automated countOrdered By: Gonzalez Baires on 04-19-2024 Hematocrit (Bld) [Volume fraction] 41.6 % Normal 34.0-46.4 [facility] Comment on above: Performed By: #### C BC, A1C WTH eA, CMP, LIPID #### [address] Hemoglobin A1c percentageOrd ered By: Gonzalez Baires on 04-19-2024 HbA1c (Bld) [Mass fraction] 5.7 % High 4.3-5.6 [facility] Comment on above: Increased risk for d iabetes: 5.7 - 6.4diabetes: >6.4glycemic control for adults with diabetes: <7.0 Result Comment: Incr eased risk for diabetes: 5.7 - 6.4 diabetes: >6.4 glycemic control for adults with diabetes: <7.0 Performed By: #### C BC, A1C WTH eA, CMP, LIPID #### [address] Hemoglobin [Mass/volume] in BloodOrdered By: Gonzalez Baires on 04-19-2024 Hemoglobin (Bld) [Mass/Vol] 13.9 g/dL Normal 11.8-15.4 [facility] Comment on above: Performed By: #### C BC, A1C WTH eA, CMP, LIPID #### [place] [address] [place] Leukocytes [#/volume] correc ramiro for nucleated erythrocytes in Blood by Automated counOrdered By: Gonzalez Baires on 04-19-2024 WBC corrected for nucl RBC Auto (Bld) [#/Vol] 6.0 10*3/uL 3.8-11.6 [facility] Leukocytes [#/volume] in Blo od by Automated countOrdered By: Gonzalez Baires on 04-19-2024 WBC (Bld) [#/Vol] 6.0 10*3/uL Normal 3.8-11.[address] [facility] Comment on above: Performed By: #### C BC, A1C WTH eA, CMP, LIPID #### [address] Lipid Panelon 04-19-2024 LDL Cholesterol,Calculate d 83 mg/dL Normal 0-100 [facility] Comment on above: Result Comment: LDL ATP III CLASSIFICATION LDL less than 100 mg/dL Optimal LDL 100-129 mg/dL Near or above optimal LDL 130-159 mg/dL Borderline high LDL 160-189 mg/dL High LDL greater than 189 mg/dL Very high Performed By: #### C BC, A1C WTH eA, CMP, LIPID #### [address] Triglyceride w/Reflex 79 mg/dL Normal 0-149 [facility] Comment on above: Result Comment: TRIG ATP III CLASSIFICATION TRIG less than 150 mg/dL Normal TRIG 150-199 mg/dL Borderline high TRIG 200-500 mg/dL High TRIG greater than 500 mg/dL Very high Standard traceable to the Center for Disease Conrtrol and Prevention (CDC) test method. Performed By: #### C BC, A1C WTH eA, CMP, LIPID #### [address] VLDL CHOLESTEROL 15 mg/dL Normal [facility] Comment on above: Performed By: #### C BC, A1C WTH eA, CMP, LIPID #### [address] Lymphocytes [#/volume] in Bl ood by Automated countOrdered By: Gonzalez Baires on 04-19-2024 Lymphocytes (Bld) [#/Vol] 1.4 10*3/uL Normal 1.00-4.8 [facility] Comment on above: Performed By: #### C BC, A1C WTH eA, CMP, LIPID #### [place] [address] [place] Lymphocytes/100 leukocytes i n Blood by Automated countOrdered By: Gonzalez Baires on 04-19-2024 Lymphocytes/100 WBC (Bld) 23.4 % Normal . [facility] Comment on above: Performed By: #### C BC, A1C WTH eA, CMP, LIPID #### [place] [address] [place] MCH [Entitic mass] by Automa ramiro countOrdered By: Gonzalez Baires on 04-19-2024 MCH (RBC) [Entitic mass] 30.0 pg Normal 24.7-34.3 [facility] Comment on above: Performed By: #### C BC, A1C WTH eA, CMP, LIPID #### [address] MCHC Auto (RBC) [Mass/Vol]Or dered By: Gonzalez Baires on 04-19-2024 MCHC (RBC) [Mass/Vol] 33.3 g/dL 32.0-35.0 [facility] MCV [Entitic volume] by Auto mated countOrdered By: Gonzalez Baires on 04-19-2024 MCV (RBC) [Entitic vol] 90.0 fL Normal 80-100 [facility] Comment on above: Performed By: #### C BC, A1C WTH eA, CMP, LIPID #### [facility] [address] [place] [address] [place] Neutrophils [#/volume] in Bl ood by Automated countOrdered By: Gonzalez Baires on 04-19-2024 Neutrophils (Bld) [#/Vol] 3.7 10*3/uL Normal 1.8-7.7 [facility] Comment on above: Performed By: #### C BC, A1C WTH eA, CMP, LIPID #### [address] No Panel InformationOrdered By: Gonzalez Baires on 04-19-2024 Estimated GFR (CKD-EPI) > 60.0 mL/Min [facility] Creatinine Clearance (Chem N/A [facility] Nucleated erythrocytes [Pres ence] in Blood by Automated countOrdered By: Gonzalez Baires on 04-19-2024 Nucleated RBC Auto Ql (Bld) 0.1 /100{WBC} 0-0.5 [facility] Platelet mean volume [Entiti c volume] in Blood by Automated countOrdered By: Gonzalez Baires on 04-19-2024 Platelet mean volume (Bld) [Entitic vol] 8.9 fL Normal 6.3-10.7 [facility] Comment on above: Performed By: #### C BC, A1C WTH eA, CMP, LIPID #### [address] Platelets [#/volume] in Bloo d by Automated countOrdered By: Gonzalez Baires on 04-19-2024 Platelets (Bld) [#/Vol] 161 10*3/uL Normal 150-450 [facility] Comment on above: Performed By: #### C BC, A1C WTH eA, CMP, LIPID #### [address] Potassium [Moles/volume] in Serum or PlasmaOrdered By: Gonzalez Baires on 04-19-2024 Potassium [Moles/Vol] 4.6 mmol/L Normal 3.5-5.1 [facility] Comment on above: Performed By: #### C BC, A1C WTH eA, CMP, LIPID #### [address] Protein [Mass/volume] in Ser um or PlasmaOrdered By: Gonzalez Baires on 04-19-2024 Protein [Mass/Vol] 6.2 g/dL Low 6.4-8.[address] [facility] Comment on above: Performed By: #### C BC, A1C WTH eA, CMP, LIPID #### [address] Serum globulin measurement b y calculation (mass/volume)Ordered By: Gonzalez Baires on 04-19-2024 Globulin (S) [Mass/Vol] 2.3 g/dL [facility] Comment on above: Performed By: #### C BC, A1C WTH eA, CMP, LIPID #### [address] Serum or plasma albumin/glob ulin mass ratioOrdered By: Gonzalez Baires on 04-19-2024 Albumin/Globulin [Mass ratio] 1.7 {ratio} [facility] Comment on above: Performed By: #### C BC, A1C WTH eA, CMP, LIPID #### [address] Serum or plasma anion gap de terminationOrdered By: Gonzalez Baires on 04-19-2024 Anion gap [Moles/Vol] 7.5 mmol/L Normal 6.0-15.0 [facility] Comment on above: Performed By: #### C BC, A1C WTH eA, CMP, LIPID #### [address] Serum or plasma high density lipoprotein (HDL) cholesterol measurementOrdered By: Gonzalez Baires on 04-19-2024 Cholesterol in HDL [Mass/Vol] 62 mg/dL Normal 23-92 [facility] Comment on above: HDL CHOL ATP-III CLA SSIFICATION Cardiovascular RiskHDL > or equal to 60 mg/dL LOWHDL < 40 mg/dL HIGH Result Comment: HDL CHOL ATP-III CLASSIFICATION Cardiovascular Risk HDL > or equal to 60 mg/dL LOW HDL < 40 mg/dL HIGH Performed By: #### C BC, A1C WTH eA, CMP, LIPID #### [address] Serum or plasma total choles terol/high density lipoprotein (HDL) cholesterol mass ratOrdered By: Gonzalez Baires on 04-19-2024 Cholesterol.total/Cho lesterol in HDL [Mass ratio] 2.6 {ratio} Normal <5.0 [facility] Comment on above: Performed By: #### C BC, A1C WTH eA, CMP, LIPID #### [address] Sodium [Moles/volume] in Ser um or PlasmaOrdered By: Gonzalez Baires on 04-19-2024 Sodium [Moles/Vol] 139 mmol/L Normal 136-[address] [facility] Comment on above: Performed By: #### C BC, A1C WTH eA, CMP, LIPID #### [place] [facility] [address] [place] [address] Thyrotropin [Units/volume] i n Serum or PlasmaOrdered By: Gonzalez Baires on 04-19-2024 TSH Qn 3.26 m[IU]/L Normal 0.45-5.33 [facility] Comment on above: Performed By: #### C BC, A1C WTH eA, CMP, LIPID #### [facility] [address] [place] [address] [facility] Triglyceride [Mass/volume] i n Serum or PlasmaOrdered By: Gonzalez Baires on 04-19-2024 Triglyceride [Mass/Vol] 79 mg/dL 0-149 [facility] Comment on above: TRIG ATP III CLASSIF ICATIONTRIG less than 150 mg/dL NormalTRIG 150-199 mg/dL Borderline highTRIG 200-500 mg/dL High TRIG greater than 500 mg/dL Very highStandard traceable to the Center for Disease Conrtrol and Prevention (CDC) test method. Urea nitrogen [Mass/volume] in Serum or PlasmaOrdered By: Gonzalez Baires on 04-19-2024 Urea nitrogen [Mass/Vol] 21 mg/dL Normal 7-25 [facility] Comment on above: Performed By: #### C BC, A1C [facility] eA, CMP, LIPID #### [facility] [address] [place] [address] [facility] Vitamin D 25 Hydroxy Totalon 04-19-2024 Vitamin D 25 Hydroxy Total 25.3 ng/mL Low 30-100 [facility] Comment on above: Result Comment: LOUISE MIN D STATUS 25(OH)VITAMIN D RANGE (ng/mL) Deficient <20 Insufficient 20 to <30 Sufficient 30 to 100 Reference: Amber MF,Eric NC, Juan Manuel OJEDA, et al. Evaluation,treatment, and prevention of vitamin D deficiency; an Endocrine Society clinical practice guideline. JCEM. 2010; 96(7):1911-30. PERFORMED BY: [place] [id number] PATHOLOGIST FIELD SERVICE CONSULTANT MARBIN BANKS M.D. Performed By: #### C BC, A1C [facility] eA, CMP, LIPID #### [facility] [address] [place] [address] [facility] Vitamin D+Metabolites [Mass/ volume] in Serum or PlasmaOrdered By: Gonzalez Baires on 04-19-2024 Vitamin D+Metabolites [Mass/Vol] 25.3 ng/mL Low 30-100 [facility] Comment on above: VITAMIN D STATUS 25( [place])VITAMIN D RANGE (ng/mL) Deficient <20 Insufficient 20 to <30Sufficient 30 to 100Reference: Amber MF,Eric NC, Juan Manuel OJEDA, et al. Evaluation,treatment, and prevention of vitamin D deficiency; an Endocrine Society clinical practice guideline. JCEM. 2010; 96(7):1911-30. Pre-Certification Formon Pre-Certification Form [id number]#[id number] Normal [facility] Discharge Note - PTon 2023 Discharge Note - PT [id number]#1.00TIFF Normal [facility] Screenson 12-17-2023 Screens [id number]#1.00TIFF Normal [facility] Patient Educationon 12-15-19 24 Patient Education Caregiving Antibiotic Medicine, Adult Antibiotic medicines are used to treat infections caused by bacteria, such as strep throat and urinary tract infection (UTI). Antibiotic medicines will not work for colds, the flu (influenza), or other illnesses caused by viruses. These medicines work by killing the bacteria that are making you sick. Antibiotics can also have serious side effects. It is important that you take antibiotic medicines safely and only when needed. When do I need to take antibiotics? You may need antibiotics for: ? UTI. ? Strep throat. ? Bacterial sinusitis. ? Meningitis. This infection affects the spinal cord and brain. ? Serious lung infection. You may start antibiotics while your health care provider waits for your results from any tests for possible infection. Tests may include a culture of your throat, urine, blood, or mucus. Your health care provider may change or stop your antibiotic depending on your test results. When are antibiotics not needed? You do not need antibiotics for most common illnesses. These illnesses may be caused by a virus, not by bacteria. You do not need antibiotics for: ? The common cold. ? Influenza. ? Sore throat. ? Discolored mucus. ? Bronchitis. Antibiotics are not always needed for all infections caused by bacteria. Many of these infections clear up without antibiotic treatment. Do not ask for or take antibiotics when they are not necessary. How long should I take my antibiotic? You must take the entire prescription. Continue to take your antibiotic for as long as told by your health care provider. Do not stop taking it even if you start to feel better. If you stop taking it too soon: ? You may start to feel sick again. ? Your infection may become harder to treat. Each course of antibiotics needs a different amount of time to work. Some antibiotic courses last only a few days. Some last about a week to 10 days. In some cases, you may need to take antibiotics for a few weeks to completely treat your infection. What if I miss a dose? Try not to miss any doses of medicine. If you miss a dose, call your health care provider or pharmacist for advice. Sometimes it is okay to take the missed dose as soon as possible. Do not take double or extra doses. What are the risks of taking antibiotics? Antibiotics can cause: ? Allergic reactions. ? Nausea. ? Yeast infections. ? Liver problems. Antibiotics can also cause an infection called Clostridioides difficile (C. difficile or C. diff), which causes severe diarrhea. This infection happens when the antibiotics kill the healthy bacteria in your intestines. This allows C. diff to grow. C. diff needs to be treated right away. Let your health care provider know if: ? You develop diarrhea while taking an antibiotic. ? You develop diarrhea after you stop taking an antibiotic. C. diff infection can start weeks after stopping the antibiotic. Taking an antibiotic also puts you at risk for getting sick in the future with bacteria that do not respond to medicine (antibiotic-resistant infection). Antibiotics can cause bacteria to change so that if the antibiotic is taken again, the medicine cannot kill the bacteria. These infections can be more serious and, in some cases, life-threatening. Do antibiotics affect control? control pills may not work while you are on antibiotics. If you are taking control pills, continue taking them as usual and use a second form of control, such as a condom, to avoid unwanted . Continue using the second form of control until your health care provider says you can stop. What else should I know about taking antibiotics? It is important for you to take antibiotics exactly as told. Make sure to: ? Take the correct amount of medicine at the same time each day. ? Ask your health care provider: ? How long to wait between doses. ? If your antibiotic should be taken with food. ? If there are any foods, drinks, or medicines that you should avoid while taking your antibiotics. ? If there are any side effects you should be aware of. ? Use only the antibiotics prescribed for you by your health care provider. Do not use antibiotics prescribed for someone else. ? Drink a large glass of water when taking your antibiotics. Drink enough fluid to keep your urine pale yellow. ? Ask your pharmacist for a syringe, cup, or spoon that properly measures your antibiotics. ? Throw away any leftover medicine. Follow these instructions at home: ? Take wswx-lyd-avcnydr and prescription medicines as told by your health care provider. ? Return to your normal activities as told by your health care provider. Ask your health care provider what activities are safe for you. ? Keep all follow-up visits as told by your health care provider. This is important. Contact a health care provider if: ? Your symptoms get worse. (more content not included)... Normal [facility] Urology Office/Clinic Noteon 12-15-2023 Urology Office/Clinic Note Chief Complaint 2 mo f/u HPI Staff 3m DX: Chronic Bladder Pain, Frequent UTI, OAB & Kidney Stone *Started on vaginal suppository: Baclofen 10mg/Diazepam 10mg/Gabapentin 60mg 1 vag supp daily at time of last encounter as well as Keflex 250mg qd x3 months at least. then reassess if need to continue. Jerzya was DC'd & pt was to start Myrbetriq 50mg QD therapy. + C&S at last encounter. Tx'd w/Levaquin 5 days. NEG UA submitted after completion of Levaquin Dysuria: denies Incomplete bladder emptying: denies Hematuria: denies Frequency: denies Urgency: denies Nocturia: 1x a night Stream: weak Leaking: denies Post void dripping: denies Wearing pads/ Depends: denies Urge incontinence: denies Stress incontinence: denies Incontinence without Sensory Awareness: denies Abdominal pain: denies Flank pain: denies Sexual complaints: _ History of Present Illness Tests Reviewed: Reviewed UA. I have reviewed the previous health record information and history for this patient from Mary ADAIR I have reviewed and verified the staff HPI to be accurate for this encounter. There have been no associated fever, chills, flank pain, or blood in the urine. Denies any urinary infections since last encounter. Review of Systems PHQ Score Initial Depression Screen Score: 0 SCORE no fever, chills, malaise, myalgia. no rash/lesions. no chest pain, palpitations, or SOB. no abdominal pain, nausea, vomiting. no unilateral calf swelling, redness, pain Physical Exam Vitals & Measurements T: 36.9 ?C(Temporal Artery) HR: 68(Peripheral) RR: 16 BP: 136/82 HT: 62 in HT: 157 cm WT: 68.1 kg WT: 149.82 lb BMI: 27.63 General: nontoxic, NAD Mouth: moist mucosa Lungs: normal respiratory effort Cardio: regular rate, good distal perfusion Abdomen: nondistended, no suprapubic distention or tenderness, no CVA tenderness Neurologic: Grossly normal Skin: No rashes or suspicious lesions Assessment/Plan KML pt 1. Frequent UTI (N39.0: Urinary tract infection, site not specified) UCx 10/08/23 - >100k Klebsiella pneumoniae, tx'd w/ Keflex per PCP. 10/13/23- 10k Pseudomonas aeruginosa tx'd w/Levaquin NEG UA 10/26/23 UA today shows TRACE intact blood & TRACE Leuk's. NEG Nitrates. currently denies UTI sx. Uses Estrace cream. Pt not on OTC preventives, could not tolerate d-mannose/cranberry. at last ov 10/13/23 we had her start low dose keflex (250mg) daily x 90 days. Pt reports this is the best she's felt in a decade. -Continue Keflex 250mg therapy, decrease to QOD. If sx return will increase to 250mg QD therapy. refills sent. Ordered: Body Mass Index (BMI) documented 3008F Complex E&M Add on G2211 Current tobacco non-user 1036F Depression Screening Negative 3352F E&M of Est. Patient Moderate 30-39 Min 68879 Influenza immunization status assessed 1030F Medication list documented in medical record 1159F Most recent diastolic blood pressure 80-89 mm Hg 3079F Patient screen for fall risk: no falls in last year or 1 fall with no injury in last year 1101F Review of all meds by a prescribing practitioner or clinical pharmacist documented in EHR 1160F Systolic BP 130-139 mm Hg (Most Recent) 3075F Urnls Dip Stick Auto w/o Microscopy POC 81690 2. Chronic bladder pain (R39.82: Chronic bladder pain) Present >10yrs. S/p Cysto/UD 07/27/[address] Suresh. Marked improvement immediately following UD, approx 80% better per pt. Did not last. Per PFPT at [facility]: PE - extensive spasming and scarring. External myofascial release and stretching but only provides relief of pain x24hrs. Pt has been doing down-training and stretching at home. Ordered pelvic wand but has not received it yet. Pain 1/10 for 24hrs after PT, 7/10 otherwise. Constant. Azo helps some. Better after passing flatus. Worse after urination and prolonged sitting. at last ov 10/13/23 we started compounded vaginal suppository via [facility] - Baclofen 10mg/Diazepam 10mg/Gabapentin 60mg. Pt reports she Stopped taking suppository after a few weeks due to vaginal soreness. has continued PFPT at [facility] [place], has been using pelvic wand and doing stretching w good results. Ordered: Body Mass Index (BMI) documented 3008F Complex E&M Add on G2211 Current tobacco non-user 1036F Depression Screening Negative 3352F E&M of Est. Patient Moderate 30-39 Min 11474 Influenza immunization status assessed 1030F Medication list documented in medical record 1159F Most recent diastolic blood pressure 80-89 mm Hg 3079F Patient screen for fall risk: no falls in last year or 1 fall with no injury in last year 1101F Review of all meds by a prescribing practitioner or clinical pharmacist documented in EHR 1160F Systolic BP 130-139 mm Hg (Most Recent) 3075F 3. OAB (overactive bladder) (N32.81: Overactive bladder) S/p Cysto/UD 07/27/[address] Suresh. Gentry DC'd at time of last encounter due to cost. started Myrbetriq 50mg QD therapy. working well. BBSQ 9, good (more content not included)... 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 COMPARISON: 09/02/2019 and priors TECHNIQUE: Bilateral digital tomosynthesis MLO and CC views of the breasts were obtained, with creation of synthetic 2D views. Computer aided detection was utilized. FINDINGS: There are scattered areas of fibroglandular density. There are no suspicious masses, calcifications, or areas of architectural distortions. IMPRESSION: No mammographic evidence of malignancy. BI-RADS: BI-RADS 1 - Negative Recommendation: Routine screening mammogram in 1 year. Finalized by Giovanni Hernandez MD on 11/24/2023 8:26 AM 1 b MAMM 1 YR Normal [facility] Plan of Care - PT/OT/Speecho n 11-09-2023 Plan of Care - PT/OT/Speech [id number]#1.00TIFF Normal [facility] Ambulatory Visit Summaryon 0 10-26-2023 Ambulatory Visit Summary ALVARO BARAJASUERITE Collette :1940 Visit Date:10/26/2023 Ambulatory Visit Instructions Your Diagnosis Frequent UTI Your Care Team Attending Physician - MARY ZABALA PA-C Primary Care Physician - Gonzalez Baires DO This Is Your Medications List Non-Formulary Medication (Baclofen 10/Diazepam 10/Gabapentin 60) aspirin (aspirin 81 mg oral capsule) celecoxib (celecoxib 200 mg Cap) cephalexin (Keflex 250 mg Cap) cetirizine (Zyrtec) estradiol topical (Estrace 0.1 mg/g Cream) mirabegron (Myrbetriq 50 mg oral tablet, extended release) omeprazole (omeprazole 40 mg Cap-DR) rosuvastatin (rosuvastatin 10 mg Tab) ubiquinone (CoQ10) Procedures Performed Cystourethroscopy with dilation of urethral stricture (07/27/2023), Cystoscopy (02/20/2015), Cystocele (1996), Female rectocele (1996), Tonsillectomy (1950), Cataract, Colonoscopy, Hip replacement, Hysterectomy, Knee. What to do next Scheduled Follow-Up Appointments Thursday 2:20 PM EDT With: MARY ZABALA PA-C Where: [facility] Plan of Care - PT/OT/Speecho n 10-21-2023 Plan of Care - PT/OT/Speech [id number]#1.00TIFF [facility] C Urineon 10-16-2023 Bacteria identified Cx Nom (U) Microbiology PROCEDURE: Urine Culture [R1] SOURCE: U Random BODY SITE: COLLECTED DATE/TIME: 10/13/2023 12:02 EST RECEIVED DATE/TIME: 10/13/2023 20:24 EST START DATE/TIME: 10/13/2023 20:24 EST FREE TEXT SOURCE: MARY ZABALA PA-C, PA-C, JENNIFER E FINAL REPORTS Final Report [] Verified Date/Time: 10/16/2023 09:37 EST 10,000 cfu/ml Pseudomonas aeruginosa SUSCEPTIBILITY RESULTS _ LEGEND: S=Susceptible, N/R=Not Reported, Blank=Data not available, or drug not advisable or tested, I=Intermediate, ESBL=Extended spectrum beta-lactamase, R=Resistant, TFG=Thymidine-dependent strain, LONG=Beta-lactamase positive, JOSE=mcg/m;(mg/L), S*=Predicted susceptible interp, R*=Predicted resistant interp PA Antibiotic JOSE Dilutn JOSE Interp Amikacin <=16 S Aztreonam 8 S Cefepime 4 S Ceftazidime 4 S Ceftazidime/ <=8 S Avibactam Ciprofloxacin <=1 S Gentamicin <=4 S Levofloxacin <=2 S Meropenem <=1 S Piperacillin/ <=16 S Tazobactam Tobramycin <=4 S Performing Locations R1: This test was performed at: [facility], [address] [place] [address], [phone]- , [place], Normal [facility] Comment on above: Performed By: #### 2 [id number] ####[facility] [address] [place] [address] A1C with Estimated Average G luon 10-15-2023 Glucose [Mass/Vol] 111 mg/dL Normal [facility] Comment on above: Result Comment: PERF ORMED BY: [place] [address] PATHOLOGIST FIELD SERVICE CONSULTANT MARBIN BANKS M.D. Performed By: #### C BC, A1C WT eA, CMP, LIPID #### [facility] [address] [place] [address] [place] Alanine aminotransferase [En zymatic activity/volume] in Serum or PlasmaOrdered By: Gonzalez Baires on 10-15-2023 ALT [Catalytic activity/Vol] 21 U/L Normal 7-52 [facility] Comment on above: Performed By: #### C BC, A1C WTH eA, CMP, LIPID #### [facility] [address] [place] [address] [place] Albumin [Mass/volume] in Ser um or Plasma by Bromocresol green (BCG) dye binding methoOrdered By: Gonzalez Baires on 10-15-2023 Albumin BCG dye [Mass/Vol] 4.2 g/dL 3.5-5.7 [facility] Alkaline phosphatase [Enzyma tic activity/volume] in Serum or PlasmaOrdered By: Gonzalez Baires on 10-15-2023 ALP [Catalytic activity/Vol] 78 U/L Normal 34-104 [facility] Comment on above: Performed By: #### C BC, A1C WTH eA, CMP, LIPID #### [address] Aspartate aminotransferase [ Enzymatic activity/volume] in Serum or PlasmaOrdered By: Gonzalez Baires on 10-15-2023 AST [Catalytic activity/Vol] 25 U/L Normal 13-39 [facility] Comment on above: Performed By: #### C BC, A1C WTH eA, CMP, LIPID #### [address] Automated basophil %Ordered By: Gonzalez Baires on 10-15-2023 Basophils/100 WBC (Bld) 1.0 % Normal . [facility] Comment on above: Performed By: #### C BC, A1C WTH eA, CMP, LIPID #### [address] Automated basophil countOrde red By: Gonzalez Baires on 10-15-2023 Basophils (Bld) [#/Vol] 0.1 10*3/uL Normal 0.0-0.2 [facility] Comment on above: Result Comment: PERF ORMED BY: [place] [address] PATHOLOGIST FIELD SERVICE CONSULTANT MARBIN BANKS M.D. Performed By: #### C BC, A1C WTH eA, CMP, LIPID #### [address] Automated blood monocyte cou ntOrdered By: Gonzalez Baires on 10-15-2023 Monocytes (Bld) [#/Vol] 0.7 10*3/uL Normal 0.0-0.8 [facility] Comment on above: Performed By: #### C BC, A1C WTH eA, CMP, LIPID #### [address] Automated eosinophil %Ordere d By: Gonzalez Baires on 10-15-2023 Eosinophils/100 WBC (Bld) 4.0 % Normal . [facility] Comment on above: Performed By: #### C BC, A1C WTH eA, CMP, LIPID #### [address] Automated eosinophil countOr dered By: Gonzalez Baires on 10-15-2023 Eosinophils (Bld) [#/Vol] 0.3 10*3/uL Normal 0.0-0.45 [facility] Comment on above: Performed By: #### C BC, A1C WTH eA, CMP, LIPID #### [address] Automated monocyte %Ordered By: Gonzalez Baires on 10-15-2023 Monocytes/100 WBC (Bld) 11.0 % Normal . [facility] Comment on above: Performed By: #### C BC, A1C WTH eA, CMP, LIPID #### [address] Automated neutrophil %Ordere d By: Gonzalez Baires on 10-15-2023 Neutrophils/100 WBC (Bld) 60.9 % Normal . [facility] Comment on above: Performed By: #### C BC, A1C WTH eA, CMP, LIPID #### [address] Bilirubin.total [Mass/volume ] in Serum or PlasmaOrdered By: Gonzalez Baires on 10-15-2023 Bilirubin [Mass/Vol] 0.6 mg/dL Normal 0.3-1.0 [facility] Comment on above: Performed By: #### C BC, A1C WTH eA, CMP, LIPID #### [address] Calcium [Mass/volume] in Ser um or PlasmaOrdered By: Gonzalez Baires on 10-15-2023 Calcium [Mass/Vol] 9.4 mg/dL Normal 8.6-10.[address] [facility] Comment on above: Performed By: #### C BC, A1C WTH eA, CMP, LIPID #### [facility] [address] [place] [address] [place] Carbon dioxide, total [Moles /volume] in Serum or PlasmaOrdered By: Gonzalez Baires on 10-15-2023 CO2 [Moles/Vol] 28.1 mmol/L Normal 21.0-31.0 [facility] Comment on above: Performed By: #### C BC, A1C WTH eA, CMP, LIPID #### [facility] [address] [place] [address] [place] Chloride [Moles/volume] in S josué or PlasmaOrdered By: Gonzalez Baires on 10-15-2023 Chloride [Moles/Vol] 107 mmol/L Normal 98-107 [facility] Comment on above: Performed By: #### C BC, A1C WTH eA, CMP, LIPID #### [facility] [address] [place] [address] [place] Cholesterol [Mass/volume] in Serum or PlasmaOrdered By: Gonzalez Baires on 10-15-2023 Cholesterol [Mass/Vol] 161 mg/dL Normal 140-200 [facility] Comment on above: Chol less than 200 m g/dl low riskChol 201-239 mg/dl borderline riskChol 240 mg/dl and greater high risk Result Comment: Chol less than 200 mg/dl low risk Chol 201-239 mg/dl borderline risk Chol 240 mg/dl and greater high risk Performed By: #### C BC, A1C WTH eA, CMP, LIPID #### [facility] [address] [place] [id number] [place] Cholesterol in LDL Calc [Mas s/Vol]Ordered By: Gonzalez Baires on 10-15-2023 Cholesterol in LDL [Mass/Vol] 84 mg/dL 0-100 [facility] Comment on above: LDL ATP III CLASSIFI CATIONLDL less than 100 mg/dL OptimalLDL 100-129 mg/dL Near or above optimalLDL 130-159 mg/dL Borderline highLDL 160-189 mg/dL HighLDL greater than 189 mg/dL Very high Cholesterol in VLDL Calc [Ma ss/Vol]Ordered By: Gonzalez Baires on 10-15-2023 Cholesterol in VLDL [Mass/Vol] 20 mg/dL [facility] Complete Blood Count Auto Di ffon 10-15-2023 Mean Corpuscular HGB Conc 33.3 g/dL Normal 32.0-35.0 [facility] Comment on above: Performed By: #### C BC, A1C WTH eA, CMP, LIPID #### [address] NRBC% 0.2 /100{WBC} Normal 0-0.5 [facility] Comment on above: Performed By: #### C BC, A1C WTH eA, CMP, LIPID #### [address] Comprehensive Metabolic Pane sonny 10-15-2023 Albumin [Mass/Vol] 4.2 g/dL Normal 3.5-5.7 [facility] Comment on above: Performed By: #### C BC, A1C WTH eA, CMP, LIPID #### [address] GFR/1.73 sq M.predicted MDRD (S/P/Bld) [Vol rate/Area] mL/min/{1.73_m2} Normal [facility] Comment on above: Performed By: #### C BC, A1C WTH eA, CMP, LIPID #### [address] Creatinine [Mass/volume] in Serum or PlasmaOrdered By: Gonzalez Baires on 10-15-2023 Creatinine [Mass/Vol] 0.76 mg/dL Normal 0.60-1.20 [facility] Comment on above: Performed By: #### C BC, A1C WTH eA, CMP, LIPID #### [address] Erythrocyte distribution wid th [Ratio] by Automated countOrdered By: Gonzalez Baires on 10-15-2023 Erythrocyte distribution width (RBC) [Ratio] 12.4 % Normal 11.9-15.3 [facility] Comment on above: Performed By: #### C BC, A1C WTH eA, CMP, LIPID #### [address] Erythrocytes [#/volume] in B lood by Automated countOrdered By: Gonzalez Baires on 10-15-2023 RBC (Bld) [#/Vol] 4.66 10*6/uL Normal 3.60-5.00 [facility] Comment on above: Performed By: #### C BC, A1C WTH eA, CMP, LIPID #### [facility] [address] Glucose [Mass/volume] in Ser um or PlasmaOrdered By: Gonzalez Baires on 10-15-2023 Glucose [Mass/Vol] 87 mg/dL Normal 70-[address] [facility] Comment on above: ADA recommended refe rence rangeRandom Glucose Reference Range is dependent on time and content of last meal. Glucose of more than 200 mg/dL in a nonstressed, ambulatory subject supports the diagnosis of Diabetes Mellitus. Result Comment: [place] om Glucose Reference Range is dependent on time and content of last meal. Glucose of more than 200 mg/dL in a nonstressed, ambulatory subject supports the diagnosis of Diabetes Mellitus. ADA recommended reference range Performed By: #### C BC, A1C WTH eA, CMP, LIPID #### [facility] [address] Glucose mean value [Mass/vol ume] in Blood Estimated from glycated hemoglobinOrdered By: Gonzalez Baires on 10-15-2023 Average glucose Estimated from glycated hemoglobin (Bld) [Mass/Vol] 111 mg/dL [facility] Hematocrit [Volume Fraction] of Blood by Automated countOrdered By: Gonzalez Baires on 10-15-2023 Hematocrit (Bld) [Volume fraction] 42.4 % Normal 34.0-46.4 [facility] Comment on above: Performed By: #### C BC, A1C WTH eA, CMP, LIPID #### [facility] [address] Hemoglobin A1c percentageOrd ered By: Gonzalez Baires on 10-15-2023 HbA1c (Bld) [Mass fraction] 5.5 % Normal 4.3-5.6 [facility] Comment on above: Increased risk for d iabetes: 5.7 - 6.4diabetes: >6.4glycemic control for adults with diabetes: <7.0 Result Comment: Incr eased risk for diabetes: 5.7 - 6.4 diabetes: >6.4 glycemic control for adults with diabetes: <7.0 Performed By: #### C BC, A1C WTH eA, CMP, LIPID #### [facility] [address] Hemoglobin [Mass/volume] in BloodOrdered By: Gonzalez Baires on 10-15-2023 Hemoglobin (Bld) [Mass/Vol] 14.1 g/dL Normal 11.8-15.4 [facility] Comment on above: Performed By: #### C BC, A1C WTH eA, CMP, LIPID #### [facility] [address] Leukocytes [#/volume] correc ramiro for nucleated erythrocytes in Blood by Automated counOrdered By: Gonzalez Baires on 10-15-2023 WBC corrected for nucl RBC Auto (Bld) [#/Vol] 6.3 10*3/uL 3.8-11.6 [facility] Leukocytes [#/volume] in Blo od by Automated countOrdered By: Gonzalez Baires on 10-15-2023 WBC (Bld) [#/Vol] 6.3 10*3/uL Normal 3.8-11.[address] [facility] Comment on above: Performed By: #### C BC, A1C WTH eA, CMP, LIPID #### [facility] [address] Lipid Panelon 10-15-2023 LDL Cholesterol,Calculate d 84 mg/dL Normal 0-100 [facility] Comment on above: Result Comment: LDL ATP III CLASSIFICATION LDL less than 100 mg/dL Optimal LDL 100-129 mg/dL Near or above optimal LDL 130-159 mg/dL Borderline high LDL 160-189 mg/dL High LDL greater than 189 mg/dL Very high Performed By: #### C BC, A1C WTH eA, CMP, LIPID #### [facility] [address] Triglyceride w/Reflex 103 mg/dL Normal 0-149 [facility] Comment on above: Result Comment: TRIG ATP III CLASSIFICATION TRIG less than 150 mg/dL Normal TRIG 150-199 mg/dL Borderline high TRIG 200-500 mg/dL High TRIG greater than 500 mg/dL Very high Standard traceable to the Center for Disease Conrtrol and Prevention (CDC) test method. Performed By: #### C BC, A1C WTH eA, CMP, LIPID #### [address] VLDL CHOLESTEROL 20 mg/dL Normal [facility] Comment on above: Performed By: #### C BC, A1C WTH eA, CMP, LIPID #### [address] Lymphocytes [#/volume] in Bl ood by Automated countOrdered By: Gonzalez Baires on 10-15-2023 Lymphocytes (Bld) [#/Vol] 1.4 10*3/uL Normal 1.00-4.8 [facility] Comment on above: Performed By: #### C BC, A1C WTH eA, CMP, LIPID #### [address] Lymphocytes/100 leukocytes i n Blood by Automated countOrdered By: Gonzalez Baires on 10-15-2023 Lymphocytes/100 WBC (Bld) 23.1 % Normal . [facility] Comment on above: Performed By: #### C BC, A1C WTH eA, CMP, LIPID #### [address] MCH [Entitic mass] by Automa ramiro countOrdered By: Gonzalez Baires on 10-15-2023 MCH (RBC) [Entitic mass] 30.3 pg Normal 24.7-34.3 [facility] Comment on above: Performed By: #### C BC, A1C WTH eA, CMP, LIPID #### [address] MCHC Auto (RBC) [Mass/Vol]Or dered By: Gonzalez Baires on 10-15-2023 MCHC (RBC) [Mass/Vol] 33.3 g/dL 32.0-35.0 [facility] MCV [Entitic volume] by Auto mated countOrdered By: Gonzalez Baires on 10-15-2023 MCV (RBC) [Entitic vol] 91.0 fL Normal 80-100 [facility] Comment on above: Performed By: #### C BC, A1C WTH eA, CMP, LIPID #### [facility] [address] Neutrophils [#/volume] in Bl ood by Automated countOrdered By: Gonzalez Baires on 10-15-2023 Neutrophils (Bld) [#/Vol] 3.8 10*3/uL Normal 1.8-7.7 [facility] Comment on above: Performed By: #### C BC, A1C WTH eA, CMP, LIPID #### [address] No Panel InformationOrdered By: Gonzalez Baires on 10-15-2023 Estimated GFR (CKD-EPI) > 60.0 mL/Min [facility] Creatinine Clearance (Chem N/A [facility] Nucleated erythrocytes [Pres ence] in Blood by Automated countOrdered By: Gonzalez Baires on 10-15-2023 Nucleated RBC Auto Ql (Bld) 0.2 /100{WBC} 0-0.5 [facility] Platelet mean volume [Entiti c volume] in Blood by Automated countOrdered By: Gonzalez Baires on 10-15-2023 Platelet mean volume (Bld) [Entitic vol] 8.6 fL Normal 6.3-10.7 [facility] Comment on above: Performed By: #### C BC, A1C WTH eA, CMP, LIPID #### [facility] [address] [place] [address] [place] Platelets [#/volume] in Bloo d by Automated countOrdered By: Gonzalez Baires on 10-15-2023 Platelets (Bld) [#/Vol] 192 10*3/uL Normal 150-450 [facility] Comment on above: Performed By: #### C BC, A1C WTH eA, CMP, LIPID #### [address] Potassium [Moles/volume] in Serum or PlasmaOrdered By: Gonzalez Baires on 10-15-2023 Potassium [Moles/Vol] 4.4 mmol/L Normal 3.5-5.1 [facility] Comment on above: Performed By: #### C BC, A1C WTH eA, CMP, LIPID #### [address] Protein [Mass/volume] in Ser um or PlasmaOrdered By: Gonzalez Baires on 10-15-2023 Protein [Mass/Vol] 6.7 g/dL Normal 6.4-8.[address] [facility] Comment on above: Performed By: #### C BC, A1C WTH eA, CMP, LIPID #### [address] Serum globulin measurement b y calculation (mass/volume)Ordered By: Gonzalez Baires on 10-15-2023 Globulin (S) [Mass/Vol] 2.5 g/dL [facility] Comment on above: Performed By: #### C BC, A1C WTH eA, CMP, LIPID #### [address] Serum or plasma albumin/glob ulin mass ratioOrdered By: Gonzalez Baires on 10-15-2023 Albumin/Globulin [Mass ratio] 1.7 {ratio} [facility] Comment on above: Performed By: #### C BC, A1C WTH eA, CMP, LIPID #### [address] Serum or plasma anion gap de terminationOrdered By: Gonzalez Baires on 10-15-2023 Anion gap [Moles/Vol] 8.3 mmol/L Normal 6.0-15.0 [facility] Comment on above: Performed By: #### C BC, A1C WTH eA, CMP, LIPID #### [address] Serum or plasma high density lipoprotein (HDL) cholesterol measurementOrdered By: Gonzalez Baires on 10-15-2023 Cholesterol in HDL [Mass/Vol] 56 mg/dL Normal 23-92 [facility] Comment on above: HDL CHOL ATP-III CLA SSIFICATION Cardiovascular RiskHDL > or equal to 60 mg/dL LOWHDL < 40 mg/dL HIGH Result Comment: HDL CHOL ATP-III CLASSIFICATION Cardiovascular Risk HDL > or equal to 60 mg/dL LOW HDL < 40 mg/dL HIGH Performed By: #### C BC, A1C WTH eA, CMP, LIPID #### [facility] [address] Serum or plasma total choles terol/high density lipoprotein (HDL) cholesterol mass ratOrdered By: Gonzalez Baires on 10-15-2023 Cholesterol.total/Cho lesterol in HDL [Mass ratio] 2.9 {ratio} Normal <5.0 [facility] Comment on above: Result Comment: PERF ORMED BY: [place] [address] PATHOLOGIST FIELD SERVICE CONSULTANT MARBIN BANKS M.D. Performed By: #### C BC, A1C WTH eA, CMP, LIPID #### [place] [address] [place] Sodium [Moles/volume] in Ser um or PlasmaOrdered By: Gonzalez Baires on 10-15-2023 Sodium [Moles/Vol] 139 mmol/L Normal 136-[address] [facility] Comment on above: Performed By: #### C BC, A1C WTH eA, CMP, LIPID #### [address] Triglyceride [Mass/volume] i n Serum or PlasmaOrdered By: Gonzalez aBires on 10-15-2023 Triglyceride [Mass/Vol] 103 mg/dL 0-149 [facility] Comment on above: TRIG ATP III CLASSIF ICATIONTRIG less than 150 mg/dL NormalTRIG 150-199 mg/dL Borderline highTRIG 200-500 mg/dL High TRIG greater than 500 mg/dL Very highStandard traceable to the Center for Disease Conrtrol and Prevention (CDC) test method. Urea nitrogen [Mass/volume] in Serum or PlasmaOrdered By: Gonzalez Baires on 10-15-2023 Urea nitrogen [Mass/Vol] 22 mg/dL Normal 7-25 [facility] Comment on above: Performed By: #### C BC, A1C WTH eA, CMP, LIPID #### [facility] [address] [place] [id number] [facility] Ambulatory Visit Summaryon 0 10-13-2023 Ambulatory Visit Summary CAROLINA BARAJAS :1940 Visit Date:10/13/2023 Ambulatory Visit Instructions Your Diagnosis Frequent UTI Chronic bladder pain OAB (overactive bladder) Kidney stones Your Care Team Attending Physician - MARY ZABALA PA-C Primary Care Physician - Gonzalez Baires DO This Is Your Medications List estradiol topical (Estrace 0.1 mg/g Cream) vibegron (Gemtesa 75 mg oral tablet) Contact prescribing physician if questions or concerns aspirin (aspirin 81 mg oral capsule) celecoxib (celecoxib 200 mg Cap) cetirizine (Zyrtec) omeprazole (omeprazole 40 mg Cap-DR) rosuvastatin (rosuvastatin 10 mg Tab) ubiquinone (CoQ10) Procedures Performed Cystourethroscopy with dilation of urethral stricture (07/27/2023), Cystoscopy (02/20/2015), Cystocele (1996), Female rectocele (1996), Tonsillectomy (1950), Cataract, Colonoscopy, Hip replacement, Hysterectomy, Knee. Discharge Vitals Height 157 cm Height 62 in Weight 68 kg Weight 149.6 lb BMI 27.59 What to do next Scheduled Follow-Up Appointments Thursday 2:20 PM EDT With: MARY ZABALA PA-C Where: [facility] Patient Educationon 10-13-19 24 Patient Education Caregiving Antibiotic Medicine, Adult Antibiotic medicines are used to treat infections caused by bacteria, such as strep throat and urinary tract infection (UTI). Antibiotic medicines will not work for colds, the flu (influenza), or other illnesses caused by viruses. These medicines work by killing the bacteria that are making you sick. Antibiotics can also have serious side effects. It is important that you take antibiotic medicines safely and only when needed. When do I need to take antibiotics? You may need antibiotics for: ? UTI. ? Strep throat. ? Bacterial sinusitis. ? Meningitis. This infection affects the spinal cord and brain. ? Serious lung infection. You may start antibiotics while your health care provider waits for your results from any tests for possible infection. Tests may include a culture of your throat, urine, blood, or mucus. Your health care provider may change or stop your antibiotic depending on your test results. When are antibiotics not needed? You do not need antibiotics for most common illnesses. These illnesses may be caused by a virus, not by bacteria. You do not need antibiotics for: ? The common cold. ? Influenza. ? Sore throat. ? Discolored mucus. ? Bronchitis. Antibiotics are not always needed for all infections caused by bacteria. Many of these infections clear up without antibiotic treatment. Do not ask for or take antibiotics when they are not necessary. How long should I take my antibiotic? You must take the entire prescription. Continue to take your antibiotic for as long as told by your health care provider. Do not stop taking it even if you start to feel better. If you stop taking it too soon: ? You may start to feel sick again. ? Your infection may become harder to treat. Each course of antibiotics needs a different amount of time to work. Some antibiotic courses last only a few days. Some last about a week to 10 days. In some cases, you may need to take antibiotics for a few weeks to completely treat your infection. What if I miss a dose? Try not to miss any doses of medicine. If you miss a dose, call your health care provider or pharmacist for advice. Sometimes it is okay to take the missed dose as soon as possible. Do not take double or extra doses. What are the risks of taking antibiotics? Antibiotics can cause: ? Allergic reactions. ? Nausea. ? Yeast infections. ? Liver problems. Antibiotics can also cause an infection called Clostridioides difficile (C. difficile or C. diff), which causes severe diarrhea. This infection happens when the antibiotics kill the healthy bacteria in your intestines. This allows C. diff to grow. C. diff needs to be treated right away. Let your health care provider know if: ? You develop diarrhea while taking an antibiotic. ? You develop diarrhea after you stop taking an antibiotic. C. diff infection can start weeks after stopping the antibiotic. Taking an antibiotic also puts you at risk for getting sick in the future with bacteria that do not respond to medicine (antibiotic-resistant infection). Antibiotics can cause bacteria to change so that if the antibiotic is taken again, the medicine cannot kill the bacteria. These infections can be more serious and, in some cases, life-threatening. Do antibiotics affect control? control pills may not work while you are on antibiotics. If you are taking control pills, continue taking them as usual and use a second form of control, such as a condom, to avoid unwanted . Continue using the second form of control until your health care provider says you can stop. What else should I know about taking antibiotics? It is important for you to take antibiotics exactly as told. Make sure to: ? Take the correct amount of medicine at the same time each day. ? Ask your health care provider: ? How long to wait between doses. ? If your antibiotic should be taken with food. ? If there are any foods, drinks, or medicines that you should avoid while taking your antibiotics. ? If there are any side effects you should be aware of. ? Use only the antibiotics prescribed for you by your health care provider. Do not use antibiotics prescribed for someone else. ? Drink a large glass of water when taking your antibiotics. Drink enough fluid to keep your urine pale yellow. ? Ask your pharmacist for a syringe, cup, or spoon that properly measures your antibiotics. ? Throw away any leftover medicine. Follow these instructions at home: ? Take [id number] and prescription medicines as told by your health care provider. ? Return to your normal activities as told by your health care provider. Ask your health care provider what activities are safe for you. ? Keep all follow-up visits as told by your health care provider. This is important. Contact a health care provider if: ? Your symptoms get worse. (more content not included)... Normal [facility] Urology Office/Clinic Noteon 10-13-2023 Urology Office/Clinic Note Chief Complaint Possible [facility] Staff 83 year old female here due to possible UTI and dysuria. Previous DX: OAB, chronic bladder pain, frequent UTI and kidney stones. S/P Cysto/UD done 07/27/[address] Suresh. Pt. last OV notes state to continue Gemtesa and Estrace cream also start taking d-mannose and probiotics. Pt. states she coule not take d-mannose due to it having cranberry in it. Pt. doing PFPT with [facility]. Pt. last PFPT was 10/07/23. Pt. states the PFPT was helping but now not helping. Pt. states the UD also help for a couple weeks. Dr. Baires's office request Pt. to be seen sooner then her December ankita. Pt. seen Dr. Baires on 10/08/23 and was given Keflex 500mg TID x5 days. Dysuria: yes, on going for a while Incomplete bladder emptying: no, PVR 120mL Hematuria: UA shows trace today Frequency: every 1-2 hours Urgency: no Nocturia: at least 1x Stream: weak stream Post void dripping: no Wearing pads/ Depends: no Urge incontinence: no Stress incontinence: no Incontinence without Sensory Awareness: no Abdominal pain: yes lower abd pain occasionally History of Present Illness staff HPI reviewed and agree. Review of Systems PHQ Score Initial Depression Screen Score: 0 SCORE no fever, chills, malaise, myalgia. no rash/lesions. no chest pain, palpitations, or SOB. no abdominal pain, nausea, vomiting. no unilateral calf swelling, redness, pain Physical Exam Vitals & Measurements HT: 62 in HT: 157 cm WT: 68 kg WT: 149.6 lb BMI: 27.59 General: nontoxic, NAD Mouth: moist mucosa Lungs: normal respiratory effort Cardio: regular rate, good distal perfusion Abdomen: nondistended, no suprapubic distention or tenderness, no CVA tenderness Neurologic: Grossly normal Skin: No rashes or suspicious lesions Assessment/Plan Dr. Suresh pt 1. Chronic bladder pain (R39.82: Chronic bladder pain) Present >10yrs. S/p Cysto/UD 07/27/[address] Suresh. Marked improvement immediately following UD, approx 80% better per pt. Did not last. Per PFPT at [facility] (last session 10/07/23, pt has had 7 sessions so far): PE - extensive spasming and scarring. External myofascial release and stretching but only provides relief of pain x24hrs. Pt has been doing down-training and stretching at home. Ordered pelvic wand but has not received it yet. PT on hold [id number], referred pt back to urology due to severe pain. Pain 1/10 for 24hrs after PT, 7/10 otherwise. Constant. Azo helps some. Better after passing flatus. Worse after urination and prolonged sitting. Discussed w/ pt PFPT has been working on stretching PF muscles. Advised pt there are additional treatment options like medication that can help assist w chronic pelvic/bladder pain. Risks/benefits/side effects discussed at length. Pt would like to proceed w compounded pelvic suppository. -Verbal order sent to [place] for vaginal suppository: Baclofen 10mg/Diazepam 10mg/Gabapentin 60mg 1 vag supp daily #30, 2 refills -PFPT as recommended, will send copy of today's ov note -Bowel management, avoid bladder irritants. -May need to repeat UD in future. 2. Frequent UTI (N39.0: Urinary tract infection, site not specified) UCx 10/08/23 - >100k Klebsiella pneumoniae, tx'd w/ Keflex per PCP. Pt called our office 10/07/23 with recommendation to f/u with our office due to suspected UTI. Pt reports she was told she could not get a sooner appt than December and could not drop of a urine sample. Clarified with pt that she can always drop off a urine sample so we can send for culture and treat appropriately. Apologized for the miscommunication. UA today only shows trace-intact blood. Denies gross hematuria. Uses Estrace cream. Pt not on OTC preventives, could not tolerate d-mannose/cranberry. Discussed options given continued UTIs and chronic pelvic/bladder pain. Will start low dose daily suppressive abx. This should help remove 1 confounding factor from equation while we continue to try to treat her chronic pelvic/bladder pain. Risks/benefits/side effects discussed. -Urine sample to be sent for culture to ensure infection is resolved. -Take Keflex 250mg qd x3 months at least. then reassess if need to continue. Ordered: Urine Culture 3. OAB (overactive bladder) (N32.81: Overactive bladder) S/p Cysto/UD 07/27/[address] Suresh. BBS 11. KML started Gemtesa 75 mg qd at time of cysto. Leakage resolved w this med, does not wear pads. However reports her coverage changed and now Gemtesa is >$300/month. Advised pt to d/c this medication and try alternative option as long as not cost prohibitive. -D/c Gemtesa -Start Myrbetriq 50mg qd. Discussed the medication side effects, and the patient will monitor closely for these, as well as for symptom improvement. If severe side effects occur, the medication should be stopped and the office notified. If co-pay is equally high, do not fill this medication, instead hold off on any further OAB/incontinence meds for the time being as we focus on #1 and #2. Order (more content not included)... Normal [facility] Comment on above: Result Comment: Elec tronically Signed By: MARY ZABALA PA-C\.br\Date and Time Signed: 10/13/23 12:43 EST\.br\Electronically Co-Signed By: Sushma Hooks\.br\Date and Time Co-Signed: 10/13/23 11:52 EST PT - Progress Noteson 2023 PT - Progress Notes [id number] Normal [facility] Automated epithelial cells c ount in urine sediment (number/area)Ordered By: Gonzalez Baires on 10-08-2023 Epithelial cells Auto (Urine sed) [#/Area] 3-4 [HPF] 0-2 [facility] Automated erythrocytes count in urine sediment (number/area)Ordered By: Gonzalez Baires on 10-08-2023 RBC Auto (Urine sed) [#/Area] 3-4 [HPF] 0-4 [facility] Automated leukocytes count i n urine sediment (number/area)Ordered By: Gonzalez Baires on 10-08-2023 WBC Auto (Urine sed) [#/Area] 20-49 [HPF] 0-4 [facility] Automated urine color determ inationOrdered By: Gonzalez Baires on 10-08-2023 Color (U) Yellow Normal Yellow [facility] Comment on above: Order Comment: Name Collection Type:: Clean-Voided Midstream Performed By: #### A DDONUACHANTEL, HAIDERU #### [address] Automated urine hyaline cast s count (number/volume)Ordered By: Gonzalez Baires on 10-08-2023 Hyaline casts Auto (U) [#/Vol] None seen [LPF] 0-1 [facility] Bilirubin Test strip Ql (U)O rdered By: Gonzalez Baires on 10-08-2023 Bilirubin Ql (U) Negative Negative [facility] Dipstick and Microscopicon 0 10-08-2023 Appearance (U) Clear Normal Clear [facility] Comment on above: Order Comment: Name Collection Type:: Clean-Voided Midstream Performed By: #### A DDONUAPLUS, CUU #### [facility] [address] Bacteria,Urine 2+ High None Seen [facility] Comment on above: Order Comment: Name Collection Type:: Clean-Voided Midstream Performed By: #### A DDONUAPLUS, CUU #### [address] Bilirubin,Urine Negative Normal Negative [facility] Comment on above: Order Comment: Name Collection Type:: Clean-Voided Midstream Performed By: #### A DDONUAPLUS, CUU #### [address] Glucose Ql (U) Normal Normal Normal [facility] Comment on above: Order Comment: Name Collection Type:: Clean-Voided Midstream Performed By: #### A DDONUAPLUS, CUU #### [address] Hyaline Casts,Urine None Seen Normal 0-1 [facility] Comment on above: Order Comment: Name Collection Type:: Clean-Voided Midstream Result Comment: PERF ORMED BY: [place] [address] PATHOLOGIST FIELD SERVICE CONSULTANT MARBIN BANKS M.D. Performed By: #### A DDONUAPLUS, CUU #### [address] Ketones Ql (U) Negative Normal Negative [facility] Comment on above: Order Comment: Name Collection Type:: Clean-Voided Midstream Performed By: #### A DDONUAPLUS, CUU #### [address] Leukocyte esterase Test strip Ql (U) 3+ High Negative [facility] Comment on above: Order Comment: Name Collection Type:: Clean-Voided Midstream Performed By: #### A DDONUAPLUS, CUU #### [place] [address] [place] Nitrite,Urine Negative Normal Negative [facility] Comment on above: Order Comment: Name Collection Type:: Clean-Voided Midstream Performed By: #### A DDONUAPLUS, CUU #### [place] [address] [place] Occult Blood,Urine 1+ High Negative [facility] Comment on above: Order Comment: Name Collection Type:: Clean-Voided Midstream Performed By: #### A DDONUAPLUS, CUU #### [place] [address] [place] Protein,Urine Negative Normal Negative [facility] Comment on above: Order Comment: Name Collection Type:: Clean-Voided Midstream Performed By: #### A DDONUAPLUS, CUU #### [place] [address] [place] RBC,Urine 3-4 Normal 0-4 [facility] Comment on above: Order Comment: Name Collection Type:: Clean-Voided Midstream Performed By: #### A DDONUAPLUS, CUU #### [place] [address] [place] Specificy [place],Urine 1.004 Normal 1.001-1.03 0 [facility] Comment on above: Order Comment: Name Collection Type:: Clean-Voided Midstream Performed By: #### A DDONUAPLUS, CUU #### [place] [address] [place] Squamous Epithelial Cell,Urine 3-4 High 0-2 [facility] Comment on above: Order Comment: Name Collection Type:: Clean-Voided Midstream Performed By: #### A DDONUAPLUS, CUU #### [place] [address] [place] Urobilinogen,Urine Normal Normal Normal [facility] Comment on above: Order Comment: Name Collection Type:: Clean-Voided Midstream Performed By: #### A DDONUAPLUS, CUU #### [facility] [address] WBC,Urine 20-49 High 0-4 [facility] Comment on above: Order Comment: Name Collection Type:: Clean-Voided Midstream Performed By: #### A DDONUAPLUS, CUU #### [facility] [address] Ketones Auto test strip (U) [Mass/Vol]Ordered By: Gonzalez Baires on 10-08-2023 Ketones (U) [Mass/Vol] Negative Negative [facility] Nitrite Test strip Ql (U)Ord ered By: Gonzalez Baires on 10-08-2023 Nitrite Ql (U) Negative Negative [facility] Protein Auto test strip (U) [Mass/Vol]Ordered By: Gonzalez Baires on 10-08-2023 Protein (U) [Mass/Vol] Negative Negative [facility] Specific gravity Auto test s trip (U) [Rel density]Ordered By: Gonzalez Bairse on 10-08-2023 Specific gravity (U) [Rel density] 1.004 1.001-1.03 0 [facility] Urine Cultureon 10-08-2023 Bacteria identified Cx Nom (U) ORGANISM: Klebsiella pneumoniae (O:KLEPNE) [place] Count >100,000 Aerobic JOSE Charge ([id number]) SUSCEPTIBILITY ORGANISM: O:KLEPNE ANTIBIOTIC INTERPRETATION JOSE Amikacin S <16 Amoxacillin/K Clavulanate S <8 Ampicillin/Sulbactam S 88/4 Aztreonam S <4 Cefazolin S <2 Cefepime S <2 Ceftazidime S <1 Ceftazidime/Avibactam S <4 Ceftolozane/Tazobactam S <2 Ceftriaxone S <1 Cefuroxime S <4 Ciprofloxacin S <0.25 Ertapenem S <0.5 Gentamicin S <2 Levofloxacin S <0.5 Meropenem S <1 Meropenem/Vaborbactam S <2 Nitrofurantoin I 64 Piperacillin/Tazobactam S <8 Tetracycline S <4 Tigecycline S <2 Tobramycin S <2 Trimethoprim/Sulfamethoxaz ole S <0.5 S = SUSCEPTIBLE I = INTERMEDIATE R = RESISTANT BLANK = DATA NOT AVAILABLE, OR DRUG NOT ADVISABLE OR TESTED R* = RESISTANCE DUE TO EXTENDED SPECTRUM BETA-LACTAMASES ESBL = EXTENDED SPECTRUM BETA-LACTAMASE TFG = THYMIDINE-DEPENDENT STRAIN LONG = BETA-LACTAMASE POSITIVE IB = INDUCIBLE BETA-LACTAMASE. APPEARS IN PLACE OF 'S' WITH SPECIES KNOWN TO POSSESS INDUCIBLE BETA-LACTAMASES. POTENTIALLY THEY MAY BECOME RESISTANT TO ALL B-LACTAM DRUGS. PERFORMED BY: [place] [address] PATHOLOGIST FIELD SERVICE CONSULTANT MARBIN Yuen [facility] Comment on above: Performed By: #### A DDONUACHANTEL, CUU #### [address] Urine bacteria detection by automated methodOrdered By: Gonzalez Baires on 10-08-2023 Bacteria Auto Ql (U) 2+ None Seen [facility] Urine clarity by refractomet ry automatedOrdered By: Gonzalez Baires on 10-08-2023 Clarity Refractometry automated (U) Clear Clear [facility] Urine culture routineOrdered By: Gonzalez Baires on 10-08-2023 Bacteria identified Cx Nom (U) Klebsiella pneumoniae [facility] Urine glucose measurement by automated test strip (mass/volume)Ordered By: Gonzalez Baires on 10-08-2023 Glucose Auto test strip (U) [Mass/Vol] Normal mg/dL Normal [facility] Urine hemoglobin detection b y automated test stripOrdered By: Gonzalez Baires on 10-08-2023 Hemoglobin Auto test strip Ql (U) 1+ Negative [facility] Urine leukocyte esterase det ection by automated test stripOrdered By: Gonzalez Baires on 10-08-2023 Leukocyte esterase Auto test strip Ql (U) 3+ Negative [facility] Urine pH measurement by auto mated test stripOrdered By: Gonzalez Baires on 10-08-2023 pH (U) 6.5 [pH] Normal 5.0-9.0 [facility] Comment on above: Order Comment: Name Collection Type:: Clean-Voided Midstream Performed By: #### A MIREYA KIM #### [facility] [address] [place] [id number] [facility] Urobilinogen Auto test strip (U) [Mass/Vol]Ordered By: Gonzalez Baires on 10-08-2023 Urobilinogen (U) [Mass/Vol] Normal mg/dL Normal [facility] Pre-Certification Formon Pre-Certification Form [id number] Normal [facility] Ambulatory Visit Summaryon 1 11-02-2022 Ambulatory Visit Summary ZOË BARAJASITE Collette :1940 Visit Date:09/01/2023 Ambulatory Visit Instructions Your Diagnosis OAB (overactive bladder) Chronic bladder pain Frequent UTI Kidney stones Tests Performed Urnls Dip Stick Auto w/o Microscopy POC [id number] Your Care Team Attending Physician - MARY ZABALA PA-C Primary Care Physician - Gonzalez Baires DO Referring Physician - MARY ZABALA PA-C This Is Your Medications List Contact prescribing physician if questions or concerns aspirin (aspirin 81 mg oral capsule) celecoxib (celecoxib 200 mg Cap) cetirizine (Zyrtec) estradiol topical (Estrace 0.1 mg/g Cream) omeprazole (omeprazole 40 mg Cap-DR) rosuvastatin (rosuvastatin 10 mg Tab) ubiquinone (CoQ10) vibegron (Gemtesa 75 mg oral tablet) Procedures Performed Cystourethroscopy with dilation of urethral stricture (07/27/2023), Cystoscopy (02/20/2015), Cystocele (1996), Female rectocele (1996), Tonsillectomy (1950), Cataract, Colonoscopy, Hip replacement, Hysterectomy, Knee. Discharge Vitals Heart Rate (Peripheral) 80 Respiratory Rate 16 Blood Pressure 129/69 Height 157 cm Height 62 in Weight 68 kg Weight 149.6 lb BMI 27.59 What to do next Scheduled Follow-Up Appointments Thursday 8:30 AM EDT With: MARY ZABALA PA-C Where: [facility] Gildardo Normal [facility] Patient Educationon 09-01-20 Patient Education Obstetrics and Gynec ology Overactive Bladder, Adult Overactive bladder is a condition in which a person has a sudden and frequent need to urinate. A person might also leak urine if he or she cannot get to the bathroom fast enough (urinary incontinence). Sometimes, symptoms can interfere with work or social activities. What are the causes? Overactive bladder is associated with poor nerve signals between your bladder and your brain. Your bladder may get the signal to empty before it is full. You may also have very sensitive muscles that make your bladder squeeze too soon. This condition may also be caused by other factors, such as: ? Medical conditions: ? Urinary tract infection. ? Infection of nearby tissues. ? Prostate enlargement. ? Bladder stones, inflammation, or tumors. ? Diabetes. ? Muscle or nerve weakness, especially from these conditions: ? A spinal cord injury. ? Stroke. ? Multiple sclerosis. ? Parkinson's disease. ? Other causes: ? Surgery on the uterus or urethra. ? Drinking too much caffeine or alcohol. ? Certain medicines, especially those that eliminate extra fluid in the body (diuretics). ? Constipation. What increases the risk? You may be at greater risk for overactive bladder if you: ? Are an older adult. ? Smoke. ? Are going through menopause. ? Have prostate problems. ? Have a neurological disease, such as stroke, dementia, Parkinson's disease, or multiple sclerosis (MS). ? Eat or drink alcohol, spicy food, caffeine, and other things that irritate the bladder. ? Are overweight or obese. What are the signs or symptoms? Symptoms of this condition include a sudden, strong urge to urinate. Other symptoms include: ? Leaking urine. ? Urinating 8 or more times a day. ? Waking up to urinate 2 or more times overnight. How is this diagnosed? This condition may be diagnosed based on: ? Your symptoms and medical history. ? A physical exam. ? Blood or urine tests to check for possible causes, such as infection. You may also need to see a health care provider who specializes in urinary tract problems. This is called a urologist. How is this treated? Treatment for overactive bladder depends on the cause of your condition and whether it is mild or severe. Treatment may include: ? Bladder training, such as: ? Learning to control the urge to urinate by following a schedule to urinate at regular intervals. ? Doing Kegel exercises to strengthen the pelvic floor muscles that support your bladder. ? Special devices, such as: ? Biofeedback. This uses sensors to help you become aware of your body's signals. ? Electrical stimulation. This uses electrodes placed inside the body (implanted) or outside the body. These electrodes send gentle pulses of electricity to strengthen the nerves or muscles that control the bladder. ? Women may use a plastic device, called a pessary, that fits into the vagina and supports the bladder. ? Medicines, such as: ? Antibiotics to treat bladder infection. ? Antispasmodics to stop the bladder from releasing urine at the wrong time. ? Tricyclic antidepressants to relax bladder muscles. ? Injections of botulinum toxin type A directly into the bladder tissue to relax bladder muscles. ? Surgery, such as: ? A device may be implanted to help manage the nerve signals that control urination. ? An electrode may be implanted to stimulate electrical signals in the bladder. ? A procedure may be done to change the shape of the bladder. This is done only in very severe cases. Follow these instructions at home: Eating and drinking ? Make diet or lifestyle changes recommended by your health care provider. These may include: ? Drinking fluids throughout the day and not only with meals. ? Cutting down on caffeine or alcohol. ? Eating a healthy and balanced diet to prevent constipation. This may include: ? Choosing foods that are high in fiber, such as beans, whole grains, and fresh fruits and vegetables. ? Limiting foods that are high in fat and processed sugars, such as fried and sweet foods. Lifestyle ? Lose weight if needed. ? Do not use any products that contain nicotine or tobacco. These include cigarettes, chewing tobacco, and vaping devices, such as e-cigarettes. If you need help quitting, ask your health care provider. General instructions ? Take bwul-iwj-fkwvtjz and prescription medicines only as told by your health care provider. ? If you were prescribed an antibiotic medicine, take it as told by your health care provider. Do not stop taking the antibiotic even if you start to feel better. ? Use any implants or pessary as told by your health care provider. ? If needed, wear pads to absorb urine leakage. ? Keep a log to track how much and when you drink, and when you need to urinate. This will help your health care provider monitor yo (more content not included)... Normal [facility] Urology Office/Clinic Noteon 09-01-2023 Urology Office/Clinic Note HPI Staff 83 yo female here for 1 month f/u to cysto/UD by Dr. Suresh. Previous Dx: chronic bladder pain, frequent UTI, cystocele with rectocele, constipation. KATI and KUB done 07/16/23 at [facility]. S/p Cysto/UD 07/27/23. Dr. Suresh recommended after pelvic exam on 07/27/23: PFPT with biofeedback for bladder relaxation, continue estrace cream and try d-mannose and probiotics for UTIs, start Gemtesa for OAB, and consideration of CTAP wo con after UTI management for further evaluation of potential R nephrolithiasis found on KATI. Taking Gemtesa 75mg qd and uses estradiol cream 3x/wk. Pt did go to PFPT. States it was 1 visit and she was done. Has been working on Kegels. Does state she is no longer leaking. No longer wearing pads. Did not understand if she was to take both D Mannose & Probiotic. Has not started either. Constant stinging subsided immediately after procedure. Has returned, only when she sits down. Thinks the Estrace is making her vagina feel swollen. Denies all concerns with voiding. Would like to discuss the stinging sensation coming from the bladder. Occasionally subsides after passing gas or having a BM. History of Present Illness staff HPI reviewed and agree. Review of Systems PHQ Score Initial Depression Screen Score: 0 SCORE no fever, chills, malaise, myalgia. no rash/lesions. no chest pain, palpitations, or SOB. no abdominal pain, nausea, vomiting. 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 Saw Dr. Potter in the distant past but prefers female provider. 1. OAB (overactive bladder) (N32.81: Overactive bladder) S/p Cysto/UD 07/27/[address] Suresh. Started Gemtesa 75 mg qd at time of cysto. No longer leaking or wearing pads. pleased w improvement. -continue Gemtesa 2. Chronic bladder pain (R39.82: Chronic bladder pain) S/p Cysto/UD 07/27/[address] Suresh. Marked improvement immediately following UD, approx 80% better per pt. Per pelvic exam at time of cysto, recommendation was given to try PFPT with biofeedback at [facility]. Reports she has done two sessions of PFPT, feels she her muscles are still very weak. Continues to work on Kegels. Educated pt strength will improve over a longer period of time. has been working on constipation. slow and steady improvement. continued bowel improvement will improve sx. continue avoid bladder irritants -PFPT, bowel management, avoid bladder irritants. may need to repeat UD in future. -if unable to achieve 100% improvement w these measures, could consider IC tx like amitriptyline or similar 3. Frequent UTI (N39.0: Urinary tract infection, site not specified) UA today shows trace-lysed blood but no sign of infection. Denies visible blood. Denies infections since last encounter. Was advised to start taking d-mannose and probiotics for UTI prevention. However she never started either due to not knowing if she needed to take both. Uses Estrace cream. -Cont Estrace cream -Begin d-mannose and probiotics 4. Kidney stones (N20.0: Calculus of kidney) KATI 07/16/23 [facility] - simple RLP 1.7 cm cyst. R interpolar cortical 4 mm stone. KUB 07/16/23 [facility] - no stones id'd. Discussed imaging results. Advised pt she has a R renal stone. Recommended increased fluid intake. Follow-up With When Contact Information RUY FRANCOIS, MARY Snow, URL [address] [place] [address] [phone] Additional Instructions: f/u in 3-4 mos Patient Education Overactive Bladder, Adult Documentation recorded by the scribgwendolyn Hooks accurately reflects the services(s) I performed and decisions made by me. Authenticated by Mary Zabala PA-C on 09/01/2023 13:05:56. I, Sushma Hooks, personally scribed for Mary Zabala PA-C on 09/01/2023 11:34:08. . Problem List/Past Medical History Ongoing Anxiety Arthritis Asthma Chronic bladder pain Constipation Cystocele with rectocele DDD (degenerative disc disease), lumbar Frequent UTI Hyperglycemia Hyperlipidemia Kidney stones OAB (overactive bladder) Historical No qualifying data Procedure/Surgical History Cystourethroscopy with dilation of urethral stricture (07/27/2023), Cystoscopy (02/20/2015), Cystocele (1996), Female rectocele (1996), Tonsillectomy (1950), Cataract, Colonoscopy, Hip replacement, Hysterectomy, Knee. Medications aspirin 81 mg oral capsule, Oral, q24hr celecoxib 200 mg Cap CoQ10, Oral, Daily Estrace 0.1 mg/g Cream, 1 gm, Vaginal, As Directed, 1 refills Gemtesa 75 mg oral tablet, 75 mg= 1 tab(s (more content not included)... [facility] Comment on above: Result Comment: Elec tronically Signed By: MARY ZABALA PA-C\.br\Date and Time Signed: 09/01/23 13:06 EST\.br\Electronically Co-Signed By: Sushma Hooks\.br\Date and Time Co-Signed: 09/01/23 11:34 EST Plan of Care - PT/OT/Speecho n 08-24-2023 Plan of Care - PT/OT/Speech [id number]#[id number] [facility] Physician Orderon 08-04-2023 Physician Order [id number]#[id number] PATIENT IS SCHEDULED 08/18/23 [facility] Comment on above: Result Comment: Elec tronically Signed By: Mere Hernandez\Date and Time Signed: 08/04/23 09:38 EST Consent for Procedure/Surger yon 07-27-2023 Consent for Procedure/Surgery [id number]#[id number] Normal [facility] Consent for Treatmenton 07-15 Consent for Treatment [id number]#[id number] Normal [facility] Inpatient Patient Summaryon 07-27-2023 Inpatient Patient Summary [place] [id number] Clinical Summary Person Information Name: CAROLINA BARAJAS Age: 83 Years : 1940 Sex: Female PCP: Gonzalez Baires DO Marital Status: Unknown Race: White Ethnicity: Non- or Language: Lao Visit Id: Visit Reason: CHRONIC CYSTITIS Speciality: Acuity: Enc Type: Outpatient Med Service: Surgery Arrival: 07/27/2023 09:09:06 Discharge: Dispo Type: Address: [address] [place] [phone] Provider Notes: Diagnosis: Chronic bladder pain; Constipation; Frequent UTI; OAB (overactive bladder); Other urethral stricture, female; Vaginal atrophy Problems Active Cystocele with rectocele Frequent UTI Chronic bladder pain Constipation Arthritis Anxiety Hyperglycemia DDD (degenerative disc disease), lumbar Hyperlipidemia Asthma Smoking Status: Functional Status: Sensory Deficits: History of Falls: Mobility Assistance Prior to Admission: ADLs: Current Level of Assistance for Self-Care/Mobility: Cognitive Status: Allergies Lipitor (Myalgia) Advair Diskus Zetia (Short term memory loss) Laboratory or Other Results This Visit (last charted value for your 07/27/2023 visit) No Laboratory or Other Results This Visit Measurements: Height: 157 cm Weight: Blood Pressure: Not Valued / Not Valued BMI: Procedures No Procedures Documented Immunizations No Immunizations Documented This Visit Final Med List: aspirin (aspirin 81 mg oral capsule) By Mouth every 24 hours. celecoxib (celecoxib 200 mg Cap) 180 EA, 0 Refill(s), take 1 capsule by mouth twice a day with food. cetirizine (Zyrtec) every day. ciprofloxacin (Cipro 500 mg Tab) 1 Tablets By Mouth every 12 hours for 3 Days. Refills: 0. estradiol topical (Estrace 0.1 mg/g Cream) 1 Gram Vaginal As Directed. Apply a pea-sized amount to the vagina/urethra nightly x 3wks then 3x per week for maintenance. Refills: 1. omeprazole (omeprazole 40 mg Cap-DR) 90 EA, 0 Refill(s), take 1 capsule by mouth once daily. polyethylene glycol 3350 (MiraLax) By Mouth every day. rosuvastatin (rosuvastatin 10 mg Tab) 90 EA, 0 Refill(s), take 1 tablet by mouth once daily. ubiquinone (CoQ10) By Mouth every day. vibegron (Gemtesa 75 mg oral tablet) 1 Tablets By Mouth every day. Refills: 11. Care Team Members: Attending Physician: Vannessa Suresh MD Consulting Physician: Referring Physician: Vannessa Suresh MD Follow up: With: Address: When: MARY ZABALA [address] [place] [phone] Business (1) Comments: Office to schedule follow up in 1-2 months Patient Education Information: EU - Cystoscopy with Urethral Dilation Discharge Instructions (CUSTOM) [facility] IntraOperative Documentson 1 09-26-2022 IntraOperative Documents [id number] [facility] Main OR Intraoperative Recor don 07-27-2023 Main OR Intraoperative Record IntraOp Document Type FTURO Summary Primary Physician: Vannessa Suresh MD Finalized Date/Time: 07/27/23 10:35:08 Pt. Name: CAROLINA BARAJAS/Sex: 1940 Female Med Rec #: [id number] Physician: Vannessa Suresh MD Financial #: [id number] Pt. Type: O Room/Bed: / Admit/Disch: 07/27/23 09:09:06 - Institution: Case Times FTURO Entry 1 Patient Times In Room 07/27/23 10:09:00 Out Room 07/27/23 10:34:00 Procedure Times Start 07/27/23 10:20:00 Stop 07/27/23 10:29:00 Anesthesia Times Last Modified By: Odalis CHERRY, Gracie Hansen 07/27/23 10:29:45 Case Attendance FTURO Entry 1 Entry 2 Entry 3 Case Attendee Kerwin PUGH, Vannessa Jacobo RN, Gracie Camp CST, Dia Hansen Role Performed Surgeon - Primary Business Objects Report Developer - Primary Scrub - Primary Time In 07/27/23 10:09:00 07/27/23 10:09:00 07/27/23 10:09:00 Time Out 07/27/23 10:34:00 07/27/23 10:34:00 07/27/23 10:34:00 Procedure CYSTOSCOPY LOCAL WITH CYSTOSCOPY LOCAL WITH CYSTOSCOPY LOCAL WITH URETHRAL DILATION(.) URETHRAL DILATION(.) URETHRAL DILATION(.) Comments Last Modified By: Odalis CHERRY, Gracie Jacobo RN, Gracie Jacobo RN, Gracie Hansen 07/27/23 Hillary Hansen 07/27/23 Hillary Hansen 07/27/23 10:29:46 10:29:46 10:29:46 Surgical Procedures FTURO Entry 1 Procedure Description Procedure CYSTOSCOPY LOCAL WITH Modifiers . URETHRAL DILATION Surgeon Description CYSTOSCOPY WITH POSSIBLE DILATION Primary Procedure Yes Primary Surgeon Kerwin PUGH, Vannessa Fernandez Start 07/27/23 10:20:00 Stop 07/27/23 10:29:00 Anesthesia Type Local Surgical Service Urology Wound Class 2 - Clean-Contaminated Last Modified By: Odalis CHERRY, Gracie Hansen 07/27/23 10:29:40 General Case Data FTURO Pre-Care Text: Classifies surgical wound, implements aseptic technique, initiates traffic control Entry 1 Case Information OR URO 1 FT Case Level None Wound Class 2 - Clean-Contaminated Specialty Urology Preop Diagnosis CHRONIC CYSTITIS Postop Same As Preop Yes Postop Diagnosis CHRONIC CYSTITIS Outcomes Met? Yes Last Modified By: Odalis CHERRY, Gracie Hansen 07/27/23 10:10:54 Post-Care Text: The patient is free from signs and symptoms of infection EU IntraOp - FTURO Pre-Care Text: Implements protective measures prior to operative or invasive procedure, confirms identity before the operative or invasive procedure, verifies operative procedure, surgical site, and laterality Entry 1 EU Perioperative Protocols Procedure(s) CYSTOSCOPY LOCAL WITH Patient Identity Birthday, ID Band URETHRAL DILATION(.) Verified (select at Check, Patient least 2): Participation Consents / H and P HandP, Surgery/Procedure Operative Site N/A Verified Consent Marking Verified Surgical Site Yes Laterality Verified n/a Verified Procedure Verified Yes Correct Patient Yes Position Verified Availability Equipment, Medication Time Out Vannessa Suresh MD, Verified (If Participants Gracie Jacobo RN Applicable) Conrado Patel CST, Kimberly A Time Out Complete 07/27/23 10:20:00 Allergies Reviewed? Yes Allergies Reviewed Self/Patient With Body Position Frog Legged Prep Area PERIENUM Prep Agents Betadine Solution Skin. Condition Unable to Visualize Description PARTIALLY CLOTHED Additional None Specimens Collected Vitals - EU Blood Pressure 181/91 Pulse 64 bpm Respirations 20 br/min SPO2 96 % IandO - EU Outcomes Met? Yes Last Modified By: Gracie Jacobo RN 07/27/23 10:20:38 Post-Care Text: The patient is free from signs and symptoms of injury caused by extraneous objects Sign Out FTURO Entry 1 Before Patient Leaves OR Nurse verbally Yes Nurse verbally Yes confirms with the confirms with the team the name of team that the procedure(s) instrument, sponge, recorded and needle counts are correct (or N/A) Nurse verbally n/a Nurse verbally Yes confirms with the confirms with the team how the team whether there specimen is labeled are any equipment (including patient problems to be name), if applicable addressed Sign Out Complete 07/27/23 10:29:00 Last Modified By: Gracie Jacobo RN 07/27/23 10:29:40 Case Comments Finalized By: Gracie Jacobo RN Document Signatures Signed By: Gracie Jacobo RN 07/27/23 10:35 Normal [facility] Main OR Preoperative Recordo n 07-27-2023 Main OR Preoperative Record Holding Area Document Type FTURO Summary Primary Physician: Vannessa Suresh MD Finalized Date/Time: 07/27/23 09:44:08 Pt. Name: CAROLINA BARAJAS Sergo/Sex: 1940 Female Med Rec #: [id number] Physician: Vannessa Suresh MD Financial #: [id number] Pt. Type: O Room/Bed: / Admit/Disch: 07/27/23 09:09:06 - Institution: Case Times Holding FTURO Pre-Care Text: Verifies consent for planned procedure, identifies individual values and wishes concerning care, includes family members in perioperative teaching Secures patient's records' belongings, and valuables, maintains patient's dignity and privacy, and maintains patient confidentiality Entry 1 In Holding 07/27/23 09:30:00 Outcomes Met? Yes Last Modified By: Dia Sofia RN 07/27/23 09:30:11 Post-Care Text: The patient participates in decisions affecting his or her perioperative plan of care The patient's right to privacy is maintained Surgery Checklist FTURO Entry 1 Patient Birthday, ID Band Procedure History and Physical, Identification: Check, Patient Verification: Surgical Consent, With Participation Patient NPO after Midnight: n/a Personal Items: Cataract Lens Implant, Glasses, Jewelry Personal Items bilateral cataract lens Limitations: up ad jason Comment: implants, glasses, ring x 1 and 1 pair of earrings Complaints of Pain: Yes Pain Comment: 01/21 - bladder pain - burning and pressure Skin Integrity Dry, Warm Vitals - EU Blood Pressure 181/91 Pulse 64 bpm Respirations 20 br/min SPO2 96 % RN Reviewed Yes Last Modified By: Dia Sofia RN 07/27/23 09:32:01 Finalized By: Dia Sofia RN Document Signatures Signed By: Dia Sofia RN 07/27/23 09:32 Dia Sofia RN 07/27/23 09:39 Dia Sofia RN 07/27/23 09:42 Dia Sofia RN 07/27/23 09:44 Normal [facility] Operative Reporton 3 Operative Report Patient: ALVARO BARAJAS Age: 83 years Sex: Female : 1940 Associated Diagnoses: None Author: Vannessa Suresh MD Procedure Operative Information Details: Date/ Time: 07/27/2023 10:37:00. Pre-Op Dx: Chronic bladder pain (WWW36-ZI R39.82, Discharge, Medical), Frequent UTI (HHX84-NX N39.0, Discharge, Medical). Post-Op Dx: Chronic bladder pain (QTP78-HY R39.82, Discharge, Medical), Frequent UTI (QRC22-NX N39.0, Discharge, Medical), OAB (overactive bladder) (EDN31-QD N32.81, Discharge, Medical), Other urethral stricture, female (NYN11-FG N35.82, Discharge, Medical), Vaginal atrophy (NCV42-OW N95.2, Discharge, Medical). Anesthesia Type: Local. Procedure: Local Cystoscopy with Urethral Dilation. Complications: None. Risks/Benefits/Informed Consent: Surgical risks, benefits, details of the procedure have been explained to the patient, Full informed consent has been obtained. Intraoperative Information Prepped: Patient is brought back to the endoscopy suite, Patient is placed in supine position, Patient prepped in the usual fashion with Betadine solution, 2% Xylocaine Jelly is placed per Urethra, After waiting several minutes the Cystoscope is introduced. The Urethra is: Tight. The Bladder is: Normal, Trabeculated Mild to moderate trabeculations, No bladder tumors, lesions, stones or foreign bodies., Mild debris within bladder, Smaller capacity bladder. The ureteral orifices: Show efflux of clear urine. The Urethra was dilated to: 30 Romanian w/ sounds, Urine output noted at 26Fr . Devices Implanted: None. Removal: Cystoscope is removed, The patient tolerated it well. Vaginal examination: Vaginal mucosa: There is severe vaginal atrophy The urethra is patent, orthotopic. There are no masses or lesions. There is no urethral hypermobility and RAMONITA is not seen. She is unable to correctly identify her pelvic muscles. No significant anterior, apical or posterior prolapse. Mild stage 1-2 anterior prolapse. Tender pelvic floor muscles Anterior vaginal mild TTP, no palpable mesh . Postoperative Information Discharge: Patient is discharged home with antibiotic coverage. Pt notes weak stream, follow up with VINAY in 1 to 2 months to eval urinary sx after dilation today. Possible 4 mm right nephrolithiasis on KATI. KUB with constipation -See separate clinic note for further details regarding medical management and other comorbidities. . Normal [facility] Comment on above: Result Comment: Elec tronically Signed By: Vannessa Suresh MD\.br\Date and Time Signed: 07/27/23 10:42 EST Outpatient Surgery Discharge Instructionon 07-27-2023 Outpatient Surgery Discharge Instruction [address] [address] Patient Discharge Instructions PERSON INFORMATION Name: CAROLINA BARAJAS Date of : 1940 Current Date: 07/27/2023 10:38:57 PHYSICIANS Admitting Physician: Vannessa Suresh MD Comment: Discharge Diagnosis: Chronic bladder pain; Constipation; Frequent UTI; OAB (overactive bladder); Other urethral stricture, female; Vaginal atrophy CHANA CAROLINA Collette has been given the following list of follow-up instructions, prescriptions, and patient education materials: IF UNABLE TO CONTACT YOUR PHYSICIAN AND YOU FEEL IT IS AN EMERGENCY, GO TO THE NEAREST EMERGENCY ROOM OR CALL 911 Follow up: With: Address: When: MARY ZABALA [address] [place] [phone] [facility] (1) Comments: Office to schedule follow up in 1-2 months Comment: PATIENT EDUCATION INFORMATION Instructions: Cystoscopy with Urethral Dilation ? Voiding after the procedure: there may be some pain, urethral bleeding, burning, urgency, frequency and blood tinged urine following the procedure. These symptoms usually resolve within 2-5 days. Drink the amount of fluid it takes to keep the urine pink to yellow or clear in color. Drinking enough water and fluids will help to ease any discomfort after your procedure. ? If you are having problems that seem out of the ordinary, please call. ? If unable to contact your physician and you feel it is an emergency, go to the nearest emergency room or call 911 ? Diet ? you may resume your normal diet. ? Activity ? you may resume your normal activities ? Call if you have a fever over 100 degrees CHANA Mcallister MARGUERITE J, have received the attached patient education materials/instructions and have verbalized understanding: May we do a follow up call? Yes No I was present when discharge instructions were given Patient Signature _ Date Clinican/Nurse Signature Date You may receive a survey from [employer] asking you to rate your care experience. Your feedback is important and will help us understand what we do well and how we can improve the quality of care we provide to you, your loved ones and our community. It?s an honor to serve you. Thank you for choosing [facility] Normal [facility] Progress Note-Physicianon Progress Note-Physician Patient: CAROLINA BARAJAS Age: 83 years Sex: Female : 1940 Associated Diagnoses: None Author: Kerwin PUGH, Vannessa Fernandez Health Status Allergies: Allergic Reactions (Selected) Severity Not Documented Advair Diskus- No reactions were documented. Lipitor- Myalgia. Zetia- Short term memory loss., Allergies (3) Active Reaction Advair Diskus None Documented Lipitor Myalgia Zetia Short term memory loss Current medications: (Selected) Prescriptions Prescribed Cipro 500 mg Tab: 500 mg = 1 tab(s), Oral, q12hr, X 3 day(s), # 6 tab(s), Refills(s) 0, Pharmacy: [facility] #[id number], 157, cm, 07/17/23 12:31:00 EDT, Height/Length Dosing, 68.4, kg, 07/14/23 10:02:00 EDT, Weight Dosing Estrace 0.1 mg/g Cream: 1 gm, Vaginal, As Directed, 42.5 gm, Refill(s) 1, Apply a pea-sized amount to the vagina/urethra nightly x 3wks then 3x per week for maintenance, [facility] #[id number], 157, cm, 07/14/23 10:02:00 EDT, Height/Length Dosing, 68.4, kg, 07/14/23 10:02:00 EDT, W... Gemtesa 75 mg oral tablet: 75 mg = 1 tab(s), Oral, Daily, # 30 tab(s), Refills(s) 11, Pharmacy: [facility] #[id number], 157, cm, 07/17/23 12:31:00 EDT, Height/Length Dosing, 68.4, kg, 07/14/23 10:02:00 EDT, Weight Dosing Documented Medications Documented CoQ10: Oral, Daily, Refills(s) 0 MiraLax: gm, Oral, Daily, Refill(s) 0 Zyrtec: Daily, Refills(s) 0 aspirin 81 mg oral capsule: mg cap(s), Oral, q24hr, Refills(s) 0 celecoxib 200 mg Cap: 180 EA, 0 Refill(s), take 1 capsule by mouth twice a day with food, Refills(s) 0 omeprazole 40 mg Cap-DR: 90 EA, 0 Refill(s), take 1 capsule by mouth once daily, Refills(s) 0 rosuvastatin 10 mg Tab: 90 EA, 0 Refill(s), take 1 tablet by mouth once daily, Refills(s) 0 Impression and Plan Assessment and Plan: Diagnosis: Vaginal atrophy (IKJ87-FR N95.2, Discharge, Medical), Other urethral stricture, female (YXP19-EI N35.82, Discharge, Medical), OAB (overactive bladder) (ZMS55-YV N32.81, Discharge, Medical), Frequent UTI (FNB03-DQ N39.0, Discharge, Medical), Constipation (WAX74-TY K59.00, Discharge, Medical), Chronic bladder pain (AQQ93-QM R39.82, Discharge, Medical). 83 yo female with a history of chronic bladder pain for 10 years and recurrent UTIs. 1. Chronic bladder pain vs IC Exacerbated by bladder irritants such as cranberry pills. Discussed pelvic floor dysfunction and tension on exam today. -Recommend pelvic floor physical therapy with biofeedback for bladder relaxation. Referral sent to [facility] per patient request. Paper education provided -Avoid bladder irritants 2. Recurrent UTIs -just started Estrace cream by VINAY 2 weeks ago. -Continue Estrace cream -Try d-mannose, probiotics, paper education provided -Bowel regimen discussed 3. Overactive bladder -contributes #1. Has not tried medications before. Discussed treatment options, patient willing to try medication. Given severe chronic constipation, favor beta 3 agonist. -Gemtesa sent to pharmacy on file. Risk and benefits discussed. Medicare number provided -PFPT as above -Bowel regimen, timed voids 4. Weak stream/urethral stricture, history of anterior/posterior repair. Mild cystocele unlikely contributing to symptoms. 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 Empiric antibiotic sent today. Follow VINAY 1 to 2 months to reevaluate symptoms -Estrace cream 5. Right nephrolithiasis -Potential on renal ultrasound. If UTIs continue after conservative management, consider CTAP without contrast for further evaluation and potential treatment. Normal [facility] Comment on above: Result Comment: Elec tronically Signed By: Kerwin PUGH, Vannessa Fernandez\.br\Date and Time Signed: 07/27/23 10:47 EST RAD - MISCon 07-19-2023 RAD - MISC [id number]#1.00TIFF Normal [facility] RAD - Ultrasound Reporton RAD - Ultrasound Report [id number]#1.00TIFF Normal [facility] Formson 07-15-2023 Forms [id number]#1.00TIFF Normal [facility] Physician Referralon 023 Physician Referral [id number]#1.00TIFF Normal [facility] Screenson 07-15-2023 Screens [id number]#1.00TIFF Normal [facility] Ambulatory Visit Summaryon 1 Ambulatory Visit Summary CAROLINA BARAJAS :1940 Visit Date:07/14/2023 Ambulatory Visit Instructions Your Diagnosis Chronic cystitis Uterine prolapse Constipation Tests Performed Urnls Dip Stick Auto w/o Microscopy POC 03557 US Renal -- Results Pending -- XR Abdomen 1 View -- Results Pending -- Please visit your patient portal for your results or contact your primary care physician. Your Care Team Attending Physician - MARY ZABALA PA-C Primary Care Physician - Gonzalez Baires DO Referring Physician - Gonzalez Baires DO This Is Your Medications List Contact prescribing physician if questions or concerns aspirin (aspirin 81 mg oral capsule) celecoxib (celecoxib 200 mg Cap) cetirizine (Zyrtec) omeprazole (omeprazole 40 mg Cap-DR) polyethylene glycol 3350 (MiraLax) rosuvastatin (rosuvastatin 10 mg Tab) ubiquinone (CoQ10) Procedures Performed Cystoscopy (02/20/2015), Cystocele (1996), Female rectocele (1996), Tonsillectomy (1950), Cataract, Colonoscopy, Hip replacement, Hysterectomy, Knee. Discharge Vitals Heart Rate (Peripheral) 62 Respiratory Rate 16 Blood Pressure 178/90 Height 157 cm Height 62 in Weight 68.4 kg Weight 150.48 lb BMI 27.75 What to do next You Need to Schedule the Following Appointments Follow Up with MARY ZABALA PA-C, URL When: Comments: sched cysto w/ poss UD w/ Lue Where: [address] [place] [address] [phone] Medications What How Much When Instructions Unchanged aspirin (aspirin 81 mg oral capsule) Every 24 hours Contact prescribing physician if questions or concerns Unchanged celecoxib (celecoxib 200 mg Cap) 180 EA, 0 Refill(s), take 1 capsule by mouth twice a day with food Contact prescribing physician if questions or concerns Unchanged cetirizine (Zyrtec) Every day Contact prescribing physician if questions or concerns Unchanged omeprazole (omeprazole 40 mg Cap-DR) 90 EA, 0 Refill(s), take 1 capsule by mouth once daily Contact prescribing physician if questions or concerns Unchanged polyethylene glycol 3350 (MiraLax) Every day Contact prescribing physician if questions or concerns Unchanged rosuvastatin (rosuvastatin 10 mg Tab) 90 EA, 0 Refill(s), take 1 tablet by mouth once daily Contact prescribing physician if questions or concerns Unchanged ubiquinone (CoQ10) Every day Contact prescribing physician if questions or concerns Test Results Urnls Dip Stick Auto w/o Microscopy POC 88111 (07/14/2023) Bilirubin Urine Dipstick - Negative Blood Urine Dipstick - 2+ Moderate Glucose Urine Dipstick - Negative Ketones Urine Dipstick - Negative Leukocytes Urine Dipstick - 3+ Large Nitrite Urine Dipstick - Negative Protein Urine Dipstick - Negative Specific [place] Urine Dipstick - 1.010 Urine Appearance Urine Dipstick - Clear Urine Color Urine Dipstick - Yellow Urobilinogen Urine Dipstick - Normal 0.2-1 EU/dl pH Urine Dipstick - 7 Allergies Advair Diskus Lipitor (Myalgia) Zetia (Short term memory loss) Problems Ongoing - Any problem that you are currently receiving treatment for. Anxiety Arthritis Asthma Chronic cystitis Constipation DDD (degenerative disc disease), lumbar Hyperglycemia Hyperlipidemia Uterine prolapse Historical - Any problem that you are no longer receiving treatment for. Frequent UTI Patient Survey You may receive a survey via text or e-mail asking about your office visit. Please share your experience with us by completing your survey. We appreciate your feedback and thank you for choosing us for your care. Education Materials Urinary Tract Infection, Adult A urinary tract infection (UTI) is an infection of any part of the urinary tract. The urinary tract includes the kidneys, ureters, bladder, and urethra. These organs make, store, and get rid of urine in the body. An upper UTI affects the ureters and kidneys. A lower UTI affects the bladder and urethra. What are the causes? Most urinary tract infections are caused by bacteria in your genital area around your urethra, where urine leaves your body. These bacteria grow and cause inflammation of your urinary tract. What increases the risk? You are more likely to develop this condition if: ? You have a urinary catheter that stays in place. ? You are not able to control when you urinate or have a bowel movement (incontinence). ? You are female and you: ? Use a spermicide or diaphragm for control. ? Have low estrogen levels. ? Are . ? You have certain genes that increase your risk. ? You are sexually active. ? You take antibiotic medicines. ? You have a condition that causes your flow of urine to slow down, such as: ? An enlarged prostate, if you are male. ? Blockage in your urethra. ? A kidney stone. ? A nerve condition that affects your bladder control (neurogenic bladder). ? Not getti (more content not included)... Normal [facility] Patient Educationon 07-14-20 Patient Education Obstetrics and Gynec ology Urinary Tract Infection, Adult A urinary tract infection (UTI) is an infection of any part of the urinary tract. The urinary tract includes the kidneys, ureters, bladder, and urethra. These organs make, store, and get rid of urine in the body. An upper UTI affects the ureters and kidneys. A lower UTI affects the bladder and urethra. What are the causes? Most urinary tract infections are caused by bacteria in your genital area around your urethra, where urine leaves your body. These bacteria grow and cause inflammation of your urinary tract. What increases the risk? You are more likely to develop this condition if: ? You have a urinary catheter that stays in place. ? You are not able to control when you urinate or have a bowel movement (incontinence). ? You are female and you: ? Use a spermicide or diaphragm for control. ? Have low estrogen levels. ? Are . ? You have certain genes that increase your risk. ? You are sexually active. ? You take antibiotic medicines. ? You have a condition that causes your flow of urine to slow down, such as: ? An enlarged prostate, if you are male. ? Blockage in your urethra. ? A kidney stone. ? A nerve condition that affects your bladder control (neurogenic bladder). ? Not getting enough to drink, or not urinating often. ? You have certain medical conditions, such as: ? Diabetes. ? A weak disease-fighting system (immunesystem). ? Sickle cell disease. ? Gout. ? Spinal cord injury. What are the signs or symptoms? Symptoms of this condition include: ? Needing to urinate right away (urgency). ? Frequent urination. This may include small amounts of urine each time you urinate. ? Pain or burning with urination. ? Blood in the urine. ? Urine that smells bad or unusual. ? Trouble urinating. ? Cloudy urine. ? Vaginal discharge, if you are female. ? Pain in the abdomen or the lower back. You may also have: ? Vomiting or a decreased appetite. ? Confusion. ? Irritability or tiredness. ? A fever or chills. ? Diarrhea. The first symptom in older adults may be confusion. In some cases, they may not have any symptoms until the infection has worsened. How is this diagnosed? This condition is diagnosed based on your medical history and a physical exam. You may also have other tests, including: ? Urine tests. ? Blood tests. ? Tests for STIs (sexually transmitted infections). If you have had more than one UTI, a cystoscopy or imaging studies may be done to determine the cause of the infections. How is this treated? Treatment for this condition includes: ? Antibiotic medicine. ? Etua-cjm-gkecxku medicines to treat discomfort. ? Drinking enough water to stay hydrated. If you have frequent infections or have other conditions such as a kidney stone, you may need to see a health care provider who specializes in the urinary tract (urologist). In rare cases, urinary tract infections can cause sepsis. Sepsis is a life-threatening condition that occurs when the body responds to an infection. Sepsis is treated in the hospital with IV antibiotics, fluids, and other medicines. Follow these instructions at home: Medicines ? Take zoxz-pho-zmnfyta and prescription medicines only as told by your health care provider. ? If you were prescribed an antibiotic medicine, take it as told by your health care provider. Do not stop using the antibiotic even if you start to feel better. General instructions ? Make sure you: ? Empty your bladder often and completely. Do not hold urine for long periods of time. ? Empty your bladder after sex. ? Wipe from front to back after urinating or having a bowel movement if you are female. Use each tissue only one time when you wipe. ? Drink enough fluid to keep your urine pale yellow. ? Keep all follow-up visits. This is important. Contact a health care provider if: ? Your symptoms do not get better after 1?2 days. ? Your symptoms go away and then return. Get help right away if: ? You have severe pain in your back or your lower abdomen. ? You have a fever or chills. ? You have nausea or vomiting. Summary ? A urinary tract infection (UTI) is an infection of any part of the urinary tract, which includes the kidneys, ureters, bladder, and urethra. ? Most urinary tract infections are caused by bacteria in your genital area. ? Treatment for this condition often includes antibiotic medicines. ? If you were prescribed an antibiotic medicine, take it as told by your health care provider. Do not stop using the antibiotic even if you start to feel better. ? Keep all follow-up visits. This is important. This information is not intended to replace advice given to you by your health care provider. Make sure you discuss any questions you have with your health care provider. Document Revised: 04/12/2021 Document Revie (more content not included)... Normal [facility] Automated erythrocytes count in urine sediment (number/area)Ordered By: Gonzalez Baires on 06-10-2023 RBC Auto (Urine sed) [#/Area] 3-4 [HPF] 0-4 [facility] Automated leukocytes count i n urine sediment (number/area)Ordered By: Gonzalez Baires on 06-10-2023 WBC Auto (Urine sed) [#/Area] Innumerable [HPF] 0-4 [facility] Automated urine color determ inationOrdered By: Gonzalez Baires on 06-10-2023 Color (U) Dark yellow Critically abnormal Yellow [facility] Comment on above: Order Comment: Name Collection Type:: Clean-Voided Midstream Performed By: #### C UU, ADDONUAPLUS #### [facility] [address] [place] [address] Bilirubin Test strip Ql (U)O rdered By: Gonzalez Baires on 06-10-2023 Bilirubin Ql (U) Negative Negative [facility] Dipstick & Microscopicon Dipstick & Microscopic wywy Other Dipstick and Microscopicon 0 06-10-2023 Bacteria,Urine 3+ High None Seen [facility] Comment on above: Order Comment: Name Collection Type:: Clean-Voided Midstream Performed By: #### C UU, ADDONUAPLUS #### [address] Bilirubin,Urine Negative Normal Negative [facility] Comment on above: Order Comment: Name Collection Type:: Clean-Voided Midstream Performed By: #### C UU, ADDONUAPLUS #### [address] Glucose Ql (U) Normal Normal Normal [facility] Comment on above: Order Comment: Name Collection Type:: Clean-Voided Midstream Performed By: #### C UU, ADDONUAPLUS #### [address] Hyaline Casts,Urine 0-8 Normal 0-8 [facility] Comment on above: Order Comment: Name Collection Type:: Clean-Voided Midstream Result Comment: PERF ORMED BY: [place] [address] PATHOLOGIST FIELD SERVICE CONSULTANT MARBIN BANKS M.D. Performed By: #### C UU, ADDONUAPLUS #### [address] Ketones Ql (U) Negative Normal Negative [facility] Comment on above: Order Comment: Name Collection Type:: Clean-Voided Midstream Performed By: #### C UU, ADDONUAPLUS #### [address] Leukocyte esterase Test strip Ql (U) 4+ High Negative [facility] Comment on above: Order Comment: Name Collection Type:: Clean-Voided Midstream Performed By: #### C UU, ADDONUAPLUS #### [address] Nitrite,Urine Positive High Negative [facility] Comment on above: Order Comment: Name Collection Type:: Clean-Voided Midstream Performed By: #### C UU, ADDONUAPLUS #### [place] [address] [place] Occult Blood,Urine 1+ High Negative [facility] Comment on above: Order Comment: Name Collection Type:: Clean-Voided Midstream Performed By: #### C UU, ADDONUAPLUS #### [address] Protein,Urine Negative Normal Negative [facility] Comment on above: Order Comment: Name Collection Type:: Clean-Voided Midstream Performed By: #### C UU, ADDONUAPLUS #### [address] RBC,Urine 3-4 Normal 0-4 [facility] Comment on above: Order Comment: Name Collection Type:: Clean-Voided Midstream Performed By: #### C UU, ADDONUAPLUS #### [address] Specificy [place],Urine 1.010 Normal 1.001-1.03 0 [facility] Comment on above: Order Comment: Name Collection Type:: Clean-Voided Midstream Performed By: #### C UU, ADDONUAPLUS #### [address] Squamous Epithelial Cell,Urine 0-1 Normal 0-2 [facility] Comment on above: Order Comment: Name Collection Type:: Clean-Voided Midstream Performed By: #### C UU, ADDONUAPLUS #### [address] Urobilinogen,Urine Normal Normal Normal [facility] Comment on above: Order Comment: Name Collection Type:: Clean-Voided Midstream Performed By: #### C UU, ADDONUAPLUS #### [address] WBC,Urine Innumerable High 0-4 [facility] Comment on above: Order Comment: Name Collection Type:: Clean-Voided Midstream Performed By: #### C UU, ADDONUAPLUS #### [address] Ketones Auto test strip (U) [Mass/Vol]Ordered By: Gonzalez Baires on 06-10-2023 Ketones (U) [Mass/Vol] Negative Negative [facility] - UrinalysisOrder ed By: Gonzalez Baires on 06-10-2023 Hyaline casts LM Ql (Urine sed) 0-8 [LPF] 0-8 [facility] Protein Auto test strip (U) [Mass/Vol]Ordered By: Gonzalez Baires on 06-10-2023 Protein (U) [Mass/Vol] Negative Negative [facility] Specific gravity Auto test s trip (U) [Rel density]Ordered By: Gonzalez Baires on 06-10-2023 Specific gravity (U) [Rel density] 1.010 1.001-1.03 0 [facility] Squamous epithelial cells de tection in urine sediment by light microscopyOrdered By: Gonzalez Baires on 06-10-2023 Epithelial cells.squamous LM Ql (Urine sed) 0-1 [HPF] 0-2 [facility] Urinalysis - DIPSTICKon 05-16 Bilirubin Ql (U) 1+ [employer] Other Color (U) orange [facility] Other Glucose Ql (U) Negative [employer] Other Hemoglobin Ql (U) 3 + [employer] Other Ketones Ql (U) 5 + [employer] Other Protein Ql (U) 2+ [employer] Other Specific gravity (U) [Rel density] 1.005 [facility] Other Urobilinogen (U) [Mass/Vol] 2 mg/dL [facility] Other Urinalysis - DIPSTICK Nor KDPOF Other Appearance (U) cloudy Critically abnormal Clear [facility] Other Comment on above: Order Comment: Name Collection Type:: Clean-Voided Midstream Performed By: #### C UU, ADDONUAPLUS #### [facility] [address] [place] [address] Urine Cultureon 06-10-2023 Urine Culture >100,000 [place] Other Bacteria identified Cx Nom (U) ORGANISM: Escherichia coli (O:ESCCOL) [place] Count >100,000 Aerobic JOSE Charge (NMIC56) SUSCEPTIBILITY ORGANISM: O:ESCCOL ANTIBIOTIC INTERPRETATION JOSE Amikacin S <16 Amoxacillin/K Clavulanate S <8 Ampicillin S <8 Ampicillin/Sulbactam S <4 Aztreonam S <4 Cefazolin S <2 Cefepime S <2 Ceftazidime S <1 Ceftazidime/Avibactam S <4 Ceftolozane/Tazobactam S <2 Ceftriaxone S <1 Cefuroxime S <4 Ciprofloxacin S <0.25 Ertapenem S <0.5 Gentamicin S <2 Levofloxacin S <0.5 Meropenem S <1 Meropenem/Vaborbactam S <2 Nitrofurantoin S <32 Piperacillin/Tazobactam S <8 Tetracycline S <4 Tigecycline S <2 Tobramycin S <2 Trimethoprim/Sulfamethoxaz ole S <0.5 S = SUSCEPTIBLE I = INTERMEDIATE R = RESISTANT BLANK = DATA NOT AVAILABLE, OR DRUG NOT ADVISABLE OR TESTED R* = RESISTANCE DUE TO EXTENDED SPECTRUM BETA-LACTAMASES ESBL = EXTENDED SPECTRUM BETA-LACTAMASE TFG = THYMIDINE-DEPENDENT STRAIN LONG = BETA-LACTAMASE POSITIVE IB = INDUCIBLE BETA-LACTAMASE. APPEARS IN PLACE OF 'S' WITH SPECIES KNOWN TO POSSESS INDUCIBLE BETA-LACTAMASES. POTENTIALLY THEY MAY BECOME RESISTANT TO ALL B-LACTAM DRUGS. PERFORMED BY: [place] [address] PATHOLOGIST FIELD SERVICE CONSULTANT MARBIN BANKS M.D. Normal [facility] Comment on above: Performed By: #### C CORTES STRAUSSONUAPLUS #### [address] Urine bacteria detection by automated methodOrdered By: Gonzalez Baires on 06-10-2023 Bacteria Auto Ql (U) 3+ None Seen [facility] Urine clarity by refractomet ry automatedOrdered By: Gonzalez Baires on 06-10-2023 Clarity Refractometry automated (U) Cloudy Clear [facility] Urine glucose measurement by automated test strip (mass/volume)Ordered By: Gonzalez Baires on 06-10-2023 Glucose Auto test strip (U) [Mass/Vol] Normal mg/dL Normal [facility] Urine hemoglobin detection b y automated test stripOrdered By: Gonzalez Baires on 06-10-2023 Hemoglobin Auto test strip Ql (U) 1+ Negative [facility] Urine leukocyte esterase det ection by automated test stripOrdered By: Gonzalez Baires on 06-10-2023 Leukocyte esterase Auto test strip Ql (U) 4+ Negative [facility] Urine nitrite detection by t est stripOrdered By: Gonzalez Baires on 06-10-2023 Nitrite Ql (U) Positive [facility] Urine pH measurement by auto mated test stripOrdered By: Gonzalez Baires on 06-10-2023 pH (U) 6.5 [pH] Normal 5.0-9.0 [facility] Comment on above: Order Comment: Name Collection Type:: Clean-Voided Midstream Performed By: #### C UU, ADDONUAPLUS #### [address] Urobilinogen Auto test strip (U) [Mass/Vol]Ordered By: Gonzalez Baires on 06-10-2023 Urobilinogen (U) [Mass/Vol] Normal mg/dL Normal [facility] Automated erythrocytes count in urine sediment (number/area)Ordered By: Gonzalez Baires on 05-21-2023 RBC Auto (Urine sed) [#/Area] 3-4 [HPF] 0-4 [facility] Automated leukocytes count i n urine sediment (number/area)Ordered By: Gonzalez Baires on 05-21-2023 WBC Auto (Urine sed) [#/Area] None seen [HPF] 0-4 [facility] Automated urine color determ inationOrdered By: Gonzalez Baires on 05-21-2023 Color (U) Yellow Normal Yellow [facility] Comment on above: Order Comment: Name Collection Type:: Clean-Voided Midstream Performed By: #### C UU, ADDONUAPLUS #### [address] Bilirubin Test strip Ql (U)O rdered By: Gonzalez Baires on 05-21-2023 Bilirubin Ql (U) Negative Negative [facility] Dipstick and Microscopicon 0 05-21-2023 Appearance (U) Clear Normal Clear [facility] Comment on above: Order Comment: Name Collection Type:: Clean-Voided Midstream Performed By: #### C UU, ADDONUAPLUS #### [place] [address] [place] Bacteria,Urine None Seen Normal None Seen [facility] Comment on above: Order Comment: Name Collection Type:: Clean-Voided Midstream Performed By: #### C UU, ADDONUAPLUS #### [address] Bilirubin,Urine Negative Normal Negative [facility] Comment on above: Order Comment: Name Collection Type:: Clean-Voided Midstream Performed By: #### C UU, ADDONUAPLUS #### [address] Glucose Ql (U) Normal Normal Normal [facility] Comment on above: Order Comment: Name Collection Type:: Clean-Voided Midstream Performed By: #### C UU, ADDONUAPLUS #### [place] [address] [place] Hyaline Casts,Urine None Seen Normal 0-8 [facility] Comment on above: Order Comment: Name Collection Type:: Clean-Voided Midstream Result Comment: PERF ORMED BY: [place] [address] PATHOLOGIST FIELD SERVICE CONSULTANT MARBIN BANKS M.D. Performed By: #### C UU, ADDONUAPLUS #### [place] [address] [place] Ketones Ql (U) Negative Normal Negative [facility] Comment on above: Order Comment: Name Collection Type:: Clean-Voided Midstream Performed By: #### C UU, ADDONUAPLUS #### [address] Leukocyte esterase Test strip Ql (U) Negative Normal Negative [facility] Comment on above: Order Comment: Name Collection Type:: Clean-Voided Midstream Performed By: #### C UU, ADDONUAPLUS #### [place] [address] [place] Nitrite,Urine Negative Normal Negative [facility] Comment on above: Order Comment: Name Collection Type:: Clean-Voided Midstream Performed By: #### C UU, ADDONUAPLUS #### [address] Occult Blood,Urine Trace High Negative [facility] Comment on above: Order Comment: Name Collection Type:: Clean-Voided Midstream Performed By: #### C UU, ADDONUAPLUS #### [place] [address] [place] Protein,Urine Negative Normal Negative [facility] Comment on above: Order Comment: Name Collection Type:: Clean-Voided Midstream Performed By: #### C UU, ADDONUAPLUS #### [place] [address] [place] RBC,Urine 3-4 Normal 0-4 [facility] Comment on above: Order Comment: Name Collection Type:: Clean-Voided Midstream Performed By: #### C UU, ADDONUAPLUS #### [place] [address] [place] Specificy [place],Urine 1.012 Normal 1.001-1.03 0 [facility] Comment on above: Order Comment: Name Collection Type:: Clean-Voided Midstream Performed By: #### C UU, ADDONUAPLUS #### [place] [address] [place] Squamous Epithelial Cell,Urine None Seen Normal 0-2 [facility] Comment on above: Order Comment: Name Collection Type:: Clean-Voided Midstream Performed By: #### C UU, ADDONUAPLUS #### [facility] [address] Urobilinogen,Urine Normal Normal Normal [facility] Comment on above: Order Comment: Name Collection Type:: Clean-Voided Midstream Performed By: #### C UU, ADDONUAPLUS #### [facility] [address] [place] [address] WBC,Urine None Seen Normal 0-4 [facility] Comment on above: Order Comment: Name Collection Type:: Clean-Voided Midstream Performed By: #### C UU, ADDONUAPLUS #### [facility] [address] [place] [address] Ketones Auto test strip (U) [Mass/Vol]Ordered By: Gonzalez Baires on 05-21-2023 Ketones (U) [Mass/Vol] Negative Negative [facility] - UrinalysisOrder ed By: Gonzalez Baires on 05-21-2023 Hyaline casts LM Ql (Urine sed) None seen [LPF] 0-8 [facility] Nitrite Test strip Ql (U)Ord ered By: Gonzalez Baires on 05-21-2023 Nitrite Ql (U) Negative Negative [facility] Protein Auto test strip (U) [Mass/Vol]Ordered By: Gonzalez Baires on 05-21-2023 Protein (U) [Mass/Vol] Negative Negative [facility] Specific gravity Auto test s trip (U) [Rel density]Ordered By: Gonzalez Baires on 05-21-2023 Specific gravity (U) [Rel density] 1.012 1.001-1.03 0 [facility] Squamous epithelial cells de tection in urine sediment by light microscopyOrdered By: Gonzalez Baires on 05-21-2023 Epithelial cells.squamous LM Ql (Urine sed) None seen [HPF] 0-2 [facility] Urine Cultureon 05-21-2023 Bacteria identified Cx Nom (U) ORGANISM: Escherichia coli (O:ESCCOL) [place] Count 50,000 Aerobic JOSE Charge (NMIC56) SUSCEPTIBILITY ORGANISM: O:ESCCOL ANTIBIOTIC INTERPRETATION JOSE Amikacin S <16 Amoxacillin/K Clavulanate S <8 Ampicillin S <8 Ampicillin/Sulbactam S <4 Aztreonam S <4 Cefazolin S <2 Cefepime S <2 Ceftazidime S <1 Ceftazidime/Avibactam S <4 Ceftolozane/Tazobactam S <2 Ceftriaxone S <1 Cefuroxime S <4 Ciprofloxacin S <0.25 Ertapenem S <0.5 Gentamicin S <2 Levofloxacin S <0.5 Meropenem S <1 Meropenem/Vaborbactam S <2 Nitrofurantoin S <32 Piperacillin/Tazobactam S <8 Tetracycline S <4 Tigecycline S <2 Tobramycin S <2 Trimethoprim/Sulfamethoxaz ole S <0.5 S = SUSCEPTIBLE I = INTERMEDIATE R = RESISTANT BLANK = DATA NOT AVAILABLE, OR DRUG NOT ADVISABLE OR TESTED R* = RESISTANCE DUE TO EXTENDED SPECTRUM BETA-LACTAMASES ESBL = EXTENDED SPECTRUM BETA-LACTAMASE TFG = THYMIDINE-DEPENDENT STRAIN LONG = BETA-LACTAMASE POSITIVE IB = INDUCIBLE BETA-LACTAMASE. APPEARS IN PLACE OF 'S' WITH SPECIES KNOWN TO POSSESS INDUCIBLE BETA-LACTAMASES. POTENTIALLY THEY MAY BECOME RESISTANT TO ALL B-LACTAM DRUGS. PERFORMED BY: [place] [address] PATHOLOGIST FIELD SERVICE CONSULTANT MARBIN BANKS M.D. Normal [facility] Comment on above: Performed By: #### C UU, ADDONUAPLUS #### [facility] [address] Urine bacteria detection by automated methodOrdered By: Gonzalez Baires on 05-21-2023 Bacteria Auto Ql (U) None seen None Seen [facility] Urine clarity by refractomet ry automatedOrdered By: Gonzalez Baires on 05-21-2023 Clarity Refractometry automated (U) Clear Clear [facility] Urine culture routineOrdered By: Gonzalez Baires on 05-21-2023 Bacteria identified Cx Nom (U) Escherichia coli [facility] Urine glucose measurement by automated test strip (mass/volume)Ordered By: Gonzalez Baires on 05-21-2023 Glucose Auto test strip (U) [Mass/Vol] Normal mg/dL Normal [facility] Urine hemoglobin detection b y automated test stripOrdered By: Gonzalez Baires on 05-21-2023 Hemoglobin Auto test strip Ql (U) Trace Negative [facility] Urine leukocyte esterase det ection by automated test stripOrdered By: Gonzalez Baires on 05-21-2023 Leukocyte esterase Auto test strip Ql (U) Negative Negative [facility] Urine pH measurement by auto mated test stripOrdered By: Gonzalez Baires on 05-21-2023 pH (U) 6.5 [pH] Normal 5.0-9.0 [facility] Comment on above: Order Comment: Name Collection Type:: Clean-Voided Midstream Performed By: #### C UU, ADDONUAPLUS #### [address] Urobilinogen Auto test strip (U) [Mass/Vol]Ordered By: Gonzalez Baires on 05-21-2023 Urobilinogen (U) [Mass/Vol] Normal mg/dL Normal [facility] Automated erythrocytes count in urine sediment (number/area)Ordered By: Gonzalez Baires on 04-21-2023 RBC Auto (Urine sed) [#/Area] 3-4 [HPF] 0-4 [facility] Automated leukocytes count i n urine sediment (number/area)Ordered By: Gonzalez Baires on 04-21-2023 WBC Auto (Urine sed) [#/Area] None seen [HPF] 0-4 [facility] Bilirubin Test strip Ql (U)O rdered By: Gonzalez Baires on 04-21-2023 Bilirubin Ql (U) Negative Negative [facility] Color Auto (U)Ordered By: Gabriel Baires on 04-21-2023 Color (U) Yellow Yellow [facility] Ketones Auto test strip (U) [Mass/Vol]Ordered By: Gonzalez Baires on 04-21-2023 Ketones (U) [Mass/Vol] Negative Negative [facility] - UrinalysisOrder ed By: Gonzalez Baires on 04-21-2023 Hyaline casts LM Ql (Urine sed) 0-8 [LPF] 0-8 [facility] Nitrite Test strip Ql (U)Ord ered By: Gonzalez Baires on 04-21-2023 Nitrite Ql (U) Negative Negative [facility] Protein Auto test strip (U) [Mass/Vol]Ordered By: Gonzalez Baires on 04-21-2023 Protein (U) [Mass/Vol] Negative Negative [facility] Specific gravity Auto test s trip (U) [Rel density]Ordered By: Gonzalez Baires on 04-21-2023 Specific gravity (U) [Rel density] 1.008 1.001-1.03 0 [facility] Squamous epithelial cells de tection in urine sediment by light microscopyOrdered By: Gonzalez Baires on 04-21-2023 Epithelial cells.squamous LM Ql (Urine sed) 0-1 [HPF] 0-2 [facility] Urine bacteria detection by automated methodOrdered By: Gonzalez Baires on 04-21-2023 Bacteria Auto Ql (U) None seen None Seen [facility] Urine clarity by refractomet ry automatedOrdered By: Gonzalez Baires on 04-21-2023 Clarity Refractometry automated (U) Clear Clear [facility] Urine culture routineOrdered By: Gonzalez Baires on 04-21-2023 Bacteria identified Cx Nom (U) 2 Days [facility] Urine glucose measurement by automated test strip (mass/volume)Ordered By: Gonzalez Baires on 04-21-2023 Glucose Auto test strip (U) [Mass/Vol] Normal mg/dL Normal [facility] Urine hemoglobin detection b y automated test stripOrdered By: Gonzalez Baires on 04-21-2023 Hemoglobin Auto test strip Ql (U) 1+ Negative [facility] Urine leukocyte esterase det ection by automated test stripOrdered By: Gonzalez Baires on 04-21-2023 Leukocyte esterase Auto test strip Ql (U) Negative Negative [facility] Urobilinogen Auto test strip (U) [Mass/Vol]Ordered By: Gonzalez Baires on 04-21-2023 Urobilinogen (U) [Mass/Vol] Normal mg/dL Normal [facility] pH Auto test strip (U)Ordere d By: Gonzalez Baires on 04-21-2023 pH (U) 6.0 [pH] 5.0-9.0 [facility] Automated erythrocytes count in urine sediment (number/area)Ordered By: Gonzalez Baires on 04-06-2023 RBC Auto (Urine sed) [#/Area] 5-9 [HPF] 0-4 [facility] Automated leukocytes count i n urine sediment (number/area)Ordered By: Gonzalez Baires on 04-06-2023 WBC Auto (Urine sed) [#/Area] 0-1 [HPF] 0-4 [facility] Bilirubin Test strip Ql (U)O rdered By: Gonzalez Baires on 04-06-2023 Bilirubin Ql (U) Negative Negative [facility] Color Auto (U)Ordered By: Gabriel Baires on 04-06-2023 Color (U) Yellow Yellow [facility] Ketones Auto test strip (U) [Mass/Vol]Ordered By: Gonzalez Baires on 04-06-2023 Ketones (U) [Mass/Vol] Negative Negative [facility] Laboratory - UrinalysisOrder ed By: Gonzalez Baires on 04-06-2023 Hyaline casts LM Ql (Urine sed) 0-8 [LPF] 0-8 [facility] Nitrite Test strip Ql (U)Ord ered By: Gonzalez Baires on 04-06-2023 Nitrite Ql (U) Negative Negative [facility] Protein Auto test strip (U) [Mass/Vol]Ordered By: Gonzalez Baires on 04-06-2023 Protein (U) [Mass/Vol] Negative Negative [facility] Specific gravity Auto test s trip (U) [Rel density]Ordered By: Gonzalez Baires on 04-06-2023 Specific gravity (U) [Rel density] 1.023 1.001-1.03 0 [facility] Squamous epithelial cells de tection in urine sediment by light microscopyOrdered By: Gonzalez Baires on 04-06-2023 Epithelial cells.squamous LM Ql (Urine sed) 1-2 [HPF] 0-2 [facility] Urine bacteria detection by automated methodOrdered By: Gonzalez Baires on 04-06-2023 Bacteria Auto Ql (U) None seen None Seen [facility] Urine clarity by refractomet ry automatedOrdered By: Gonzalez Baires on 04-06-2023 Clarity Refractometry automated (U) Clear Clear [facility] Urine culture routineOrdered By: Gonzalez Baires on 04-06-2023 Bacteria identified Cx Nom (U) Escherichia coli [facility] Urine glucose measurement by automated test strip (mass/volume)Ordered By: Gonzalez Baires on 04-06-2023 Glucose Auto test strip (U) [Mass/Vol] Normal mg/dL Normal [facility] Urine hemoglobin detection b y automated test stripOrdered By: Gonzalez Baires on 04-06-2023 Hemoglobin Auto test strip Ql (U) 1+ Negative [facility] Urine leukocyte esterase det ection by automated test stripOrdered By: Gonzalez Baires on 04-06-2023 Leukocyte esterase Auto test strip Ql (U) Negative Negative [facility] Urobilinogen Auto test strip (U) [Mass/Vol]Ordered By: Gonzalez Baires on 04-06-2023 Urobilinogen (U) [Mass/Vol] Normal mg/dL Normal [facility] pH Auto test strip (U)Ordere d By: Gonzalez Baires on 04-06-2023 pH (U) 7.0 [pH] 5.0-9.0 [facility] Alanine aminotransferase [En zymatic activity/volume] in Serum or PlasmaOrdered By: Gonzalez Baires on 03-18-2023 ALT [Catalytic activity/Vol] 17 U/L 7-52 [facility] Albumin [Mass/volume] in Ser um or Plasma by Bromocresol green (BCG) dye binding methoOrdered By: Gonzalez Baires on 03-18-2023 Albumin BCG dye [Mass/Vol] 4.2 g/dL 3.5-5.7 [facility] Alkaline phosphatase [Enzyma tic activity/volume] in Serum or PlasmaOrdered By: Gonzalez Baires on 03-18-2023 ALP [Catalytic activity/Vol] 88 U/L 34-104 [facility] Aspartate aminotransferase [ Enzymatic activity/volume] in Serum or PlasmaOrdered By: Gonzalez Baires on 03-18-2023 AST [Catalytic activity/Vol] 23 U/L 13-39 [facility] Automated erythrocytes count in urine sediment (number/area)Ordered By: Gonzalez Baires on 03-18-2023 RBC Auto (Urine sed) [#/Area] 3-4 [HPF] 0-4 [facility] Automated leukocytes count i n urine sediment (number/area)Ordered By: Gonzalez Baires on 03-18-2023 WBC Auto (Urine sed) [#/Area] 0-1 [HPF] 0-4 [facility] Basophils Auto (Bld) [#/Vol] Ordered By: Gonzalez Baires on 03-18-2023 Basophils (Bld) [#/Vol] 0.0 10*3/uL 0.0-0.2 [facility] Basophils/100 WBC Auto (Bld) Ordered By: Gonzalez Baires on 03-18-2023 Basophils/100 WBC (Bld) 0.4 % . [facility] Bilirubin Test strip Ql (U)O rdered By: Gonzalez Baires on 03-18-2023 Bilirubin Ql (U) Negative Negative [facility] Bilirubin.total [Mass/volume ] in Serum or PlasmaOrdered By: Gonzalez Baires on 03-18-2023 Bilirubin [Mass/Vol] 0.4 mg/dL 0.3-1.0 [facility] Calcium [Mass/volume] in Ser um or PlasmaOrdered By: Gonzalez Baires on 03-18-2023 Calcium [Mass/Vol] 9.3 mg/dL 8.6-10.[address] [facility] Carbon dioxide, total [Moles /volume] in Serum or PlasmaOrdered By: Gonzalez Baires on 03-18-2023 CO2 [Moles/Vol] 27.3 mmol/L 21.0-31.0 [facility] Chloride [Moles/volume] in S josué or PlasmaOrdered By: Gonzalez Baires on 03-18-2023 Chloride [Moles/Vol] 108 mmol/L 98-107 [facility] Cholesterol [Mass/volume] in Serum or PlasmaOrdered By: Gonzalez Baires on 03-18-2023 Cholesterol [Mass/Vol] 148 mg/dL 140-200 [facility] Comment on above: Chol less than 200 m g/dl low riskChol 201-239 mg/dl borderline riskChol 240 mg/dl and greater high risk Cholesterol in LDL Calc [Mas s/Vol]Ordered By: Gonzalez Baires on 03-18-2023 Cholesterol in LDL [Mass/Vol] 65 mg/dL 0-100 [facility] Comment on above: LDL ATP III CLASSIFI CATIONLDL less than 100 mg/dL OptimalLDL 100-129 mg/dL Near or above optimalLDL 130-159 mg/dL Borderline highLDL 160-189 mg/dL HighLDL greater than 189 mg/dL Very high Cholesterol in VLDL Calc [Ma ss/Vol]Ordered By: Gonzalez Baires on 03-18-2023 Cholesterol in VLDL [Mass/Vol] 24 mg/dL [facility] Color Auto (U)Ordered By: Gabriel Baires on 03-18-2023 Color (U) Yellow Yellow [facility] Creatinine [Mass/volume] in Serum or PlasmaOrdered By: Gonzalez Baires on 03-18-2023 Creatinine [Mass/Vol] 0.70 mg/dL 0.60-1.20 [facility] Eosinophils Auto (Bld) [#/Vo l]Ordered By: Gonzalez Baires on 03-18-2023 Eosinophils (Bld) [#/Vol] 0.2 10*3/uL 0.0-0.45 [facility] Eosinophils/100 WBC Auto (Bl d)Ordered By: Gonzalez Baires on 03-18-2023 Eosinophils/100 WBC (Bld) 3.2 % . [facility] Erythrocyte distribution wid th Auto (RBC) [Ratio]Ordered By: Gonzalez Baires on 03-18-2023 Erythrocyte distribution width (RBC) [Ratio] 13.0 % 11.9-15.3 [facility] Globulin Calc (S) [Mass/Vol] Ordered By: Gonzalez Baires on 03-18-2023 Globulin (S) [Mass/Vol] 2.3 g/dL [facility] Glucose [Mass/volume] in Ser um or PlasmaOrdered By: Gonzalez Baires on 03-18-2023 Glucose [Mass/Vol] 97 mg/dL 70-[address] [facility] Comment on above: ADA recommended refe rence rangeRandom Glucose Reference Range is dependent on time and content of last meal. Glucose of more than 200 mg/dL in a nonstressed, ambulatory subject supports the diagnosis of Diabetes Mellitus. Glucose mean value [Mass/vol ume] in Blood Estimated from glycated hemoglobinOrdered By: Gonzalez Baires on 03-18-2023 Average glucose Estimated from glycated hemoglobin (Bld) [Mass/Vol] 117 mg/dL [facility] Hematocrit Auto (Bld) [Volum e fraction]Ordered By: Gonzalez Baires on 03-18-2023 Hematocrit (Bld) [Volume fraction] 40.5 % 34.0-46.4 [facility] Hemoglobin A1c percentageOrd ered By: Gonzalez Baires on 03-18-2023 HbA1c (Bld) [Mass fraction] 5.7 % 4.3-5.6 [facility] Comment on above: Increased risk for d iabetes: 5.7 - 6.4diabetes: >6.4glycemic control for adults with diabetes: <7.0 Hemoglobin [Mass/volume] in BloodOrdered By: Gonzalez Baires on 03-18-2023 Hemoglobin (Bld) [Mass/Vol] 13.3 g/dL 11.8-15.4 [facility] Ketones Auto test strip (U) [Mass/Vol]Ordered By: Gonzalez Baires on 03-18-2023 Ketones (U) [Mass/Vol] Negative Negative [facility] Laboratory - UrinalysisOrder ed By: Gonzalez Baires on 03-18-2023 Hyaline casts LM Ql (Urine sed) None seen [LPF] 0-8 [facility] Leukocytes [#/volume] correc ramiro for nucleated erythrocytes in Blood by Automated counOrdered By: Gonzalez Baires on 03-18-2023 WBC corrected for nucl RBC Auto (Bld) [#/Vol] 6.8 10*3/uL 3.8-11.6 [facility] Lymphocytes Auto (Bld) [#/Vo l]Ordered By: Gonzalez Baires on 03-18-2023 Lymphocytes (Bld) [#/Vol] 1.4 10*3/uL 1.00-4.8 [facility] Lymphocytes/100 WBC Auto (Bl d)Ordered By: Gonzalez Baires on 03-18-2023 Lymphocytes/100 WBC (Bld) 21.4 % . [facility] MCH Auto (RBC) [Entitic mass ]Ordered By: Gonzalez Baires on 03-18-2023 MCH (RBC) [Entitic mass] 30.1 pg 24.7-34.3 [facility] MCHC Auto (RBC) [Mass/Vol]Or dered By: Gonzalez Baires on 03-18-2023 MCHC (RBC) [Mass/Vol] 32.9 g/dL 32.0-35.0 [facility] MCV Auto (RBC) [Entitic vol] Ordered By: Gonzalez Baires on 03-18-2023 MCV (RBC) [Entitic vol] 91.4 fL 80-100 [facility] Monocytes Auto (Bld) [#/Vol] Ordered By: Gonzalez Baires on 03-18-2023 Monocytes (Bld) [#/Vol] 0.7 10*3/uL 0.0-0.8 [facility] Monocytes/100 WBC Auto (Bld) Ordered By: Gonzalez Baires on 03-18-2023 Monocytes/100 WBC (Bld) 10.3 % . [facility] Neutrophils Auto (Bld) [#/Vo l]Ordered By: Gonzalez Baires on 03-18-2023 Neutrophils (Bld) [#/Vol] 4.4 10*3/uL 1.8-7.7 [facility] Neutrophils/100 WBC Auto (Bl d)Ordered By: Gonzalez Baires on 03-18-2023 Neutrophils/100 WBC (Bld) 64.7 % . [facility] Nitrite Test strip Ql (U)Ord ered By: Gonzalez Baires on 03-18-2023 Nitrite Ql (U) Negative Negative [facility] No Panel InformationOrdered By: Gonzalez Baires on 03-18-2023 Estimated GFR (CKD-EPI) > 60.0 mL/Min [facility] Creatinine Clearance (Chem N/A [facility] Nucleated erythrocytes [Pres ence] in Blood by Automated countOrdered By: Gonzalez Baires on 03-18-2023 Nucleated RBC Auto Ql (Bld) 0.0 /100{WBC} 0-0.5 [facility] Platelet mean volume Auto (B ld) [Entitic vol]Ordered By: Gonzalez Baires on 03-18-2023 Platelet mean volume (Bld) [Entitic vol] 8.9 fL 6.3-10.7 [facility] Platelets Auto (Bld) [#/Vol] Ordered By: Gonzalez Baires on 03-18-2023 Platelets (Bld) [#/Vol] 169 10*3/uL 150-450 [facility] Potassium [Moles/volume] in Serum or PlasmaOrdered By: Gonzalez Baires on 03-18-2023 Potassium [Moles/Vol] 4.4 mmol/L 3.5-5.1 [facility] Protein Auto test strip (U) [Mass/Vol]Ordered By: Gonzalez Baires on 03-18-2023 Protein (U) [Mass/Vol] Negative Negative [facility] Protein [Mass/volume] in Ser um or PlasmaOrdered By: Gonzalez Baires on 03-18-2023 Protein [Mass/Vol] 6.5 g/dL 6.4-8.[address] [facility] RBC Auto (Bld) [#/Vol]Ordere d By: Gonzalez Baires on 03-18-2023 RBC (Bld) [#/Vol] 4.43 10*6/uL 3.60-5.00 [facility] Serum or plasma albumin/glob ulin mass ratioOrdered By: Gonzalez Baires on 03-18-2023 Albumin/Globulin [Mass ratio] 1.8 {ratio} [facility] Serum or plasma anion gap de terminationOrdered By: Gonzalez Baires on 03-18-2023 Anion gap [Moles/Vol] 9.1 mmol/L 6.0-15.0 [facility] Serum or plasma high density lipoprotein (HDL) cholesterol measurementOrdered By: Gonzalez Baires on 03-18-2023 Cholesterol in HDL [Mass/Vol] 58 mg/dL 23-92 [facility] Comment on above: HDL CHOL ATP-III CLA SSIFICATION Cardiovascular RiskHDL > or equal to 60 mg/dL LOWHDL < 40 mg/dL HIGH Serum or plasma total choles terol/high density lipoprotein (HDL) cholesterol mass ratOrdered By: Gonzalez Baires on 03-18-2023 Cholesterol.total/Cho lesterol in HDL [Mass ratio] 2.6 {ratio} <5.0 [facility] Sodium [Moles/volume] in Ser um or PlasmaOrdered By: Gonzalez Baires on 03-18-2023 Sodium [Moles/Vol] 140 mmol/L 136-[address] [facility] Specific gravity Auto test s trip (U) [Rel density]Ordered By: Gonzalez Baires on 03-18-2023 Specific gravity (U) [Rel density] 1.010 1.001-1.03 0 [facility] Squamous epithelial cells de tection in urine sediment by light microscopyOrdered By: Gonzalez Baires on 03-18-2023 Epithelial cells.squamous LM Ql (Urine sed) 0-1 [HPF] 0-2 [facility] Thyrotropin [Units/volume] i n Serum or PlasmaOrdered By: Gonzalez Baires on 03-18-2023 TSH Qn 2.40 m[IU]/L 0.45-5.33 [facility] Triglyceride [Mass/volume] i n Serum or PlasmaOrdered By: Gonzalez Baires on 03-18-2023 Triglyceride [Mass/Vol] 123 mg/dL 0-149 [facility] Comment on above: TRIG ATP III CLASSIF ICATIONTRIG less than 150 mg/dL NormalTRIG 150-199 mg/dL Borderline highTRIG 200-500 mg/dL High TRIG greater than 500 mg/dL Very highStandard traceable to the Center for Disease Conrtrol and Prevention (CDC) test method. Urea nitrogen [Mass/volume] in Serum or PlasmaOrdered By: Gonzalez Baires on 03-18-2023 Urea nitrogen [Mass/Vol] 20 mg/dL 7-25 [facility] Urine bacteria detection by automated methodOrdered By: Gonzalez Baires on 03-18-2023 Bacteria Auto Ql (U) 4+ None Seen [facility] Urine clarity by refractomet ry automatedOrdered By: Gonzalez Baires on 03-18-2023 Clarity Refractometry automated (U) Clear Clear [facility] Urine culture routineOrdered By: Gonzalez Baires on 03-18-2023 Bacteria identified Cx Nom (U) Escherichia coli [facility] Urine glucose measurement by automated test strip (mass/volume)Ordered By: Gonzalez Baires on 03-18-2023 Glucose Auto test strip (U) [Mass/Vol] Normal mg/dL Normal [facility] Urine hemoglobin detection b y automated test stripOrdered By: Gonzalez Baires on 03-18-2023 Hemoglobin Auto test strip Ql (U) 1+ Negative [facility] Urine leukocyte esterase det ection by automated test stripOrdered By: Gonzalez Baires on 03-18-2023 Leukocyte esterase Auto test strip Ql (U) 1+ Negative [facility] Urobilinogen Auto test strip (U) [Mass/Vol]Ordered By: Gonzalez Baires on 03-18-2023 Urobilinogen (U) [Mass/Vol] Normal mg/dL Normal [facility] WBC Auto (Bld) [#/Vol]Ordere d By: Gonzalez Baires on 03-18-2023 WBC (Bld) [#/Vol] 6.8 10*3/uL 3.8-11.[address] [facility] pH Auto test strip (U)Ordere d By: Gonzalez Baires on 03-18-2023 pH (U) 7.0 [pH] 5.0-9.0 [facility] XR hip RT min 2V(w/wo pelvis )*on 01-07-2023 XR hip RT min 2V(w/wo pelvis)* [facility] wywy Other XR hip RT min 2V(w/wo pelvis)* [facility] wywy Other XR hip RT min 2V(w/wo pelvis)* [address] [place] [address] wywy Other XR hip RT min 2V(w/wo pelvis)* [place] [address] wywy Other XR hip RT min 2V(w/wo pelvis)* XRay Report wywy Other XR hip RT min 2V(w/wo pelvis)* Signed wywy Other XR hip RT min 2V(w/wo pelvis)* Patient: Carolina Barajas February MR#: M wywy Other XR hip RT min 2V(w/wo pelvis)* [id number] wywy Other XR hip RT min 2V(w/wo pelvis)* : 1940 Acct:[id number] wywy Other XR hip RT min 2V(w/wo pelvis)* Age/Sex: 82 / F ADM Date: 01/07/23 wywy Other XR hip RT min 2V(w/wo pelvis)* Loc: [facility] Room: Type: [facility] wywy Other XR hip RT min 2V(w/wo pelvis)* Attending Dr: Artur Oliveira II, MD wywy Other XR hip RT min 2V(w/wo pelvis)* Copies to: Artur Oliveira MD wywy Other XR hip RT min 2V(w/wo pelvis)* Ordering Provider: Artur Oliveira MD wywy Other XR hip RT min 2V(w/wo pelvis)* Date of Service: 01/07/23 wy[facility] Other XR hip RT min 2V(w/wo pelvis)* XR/XR hip RT min 2V(w/wo pelvis)*: Status post total hip replacement, wywy Other XR hip RT min 2V(w/wo pelvis)* right wywy Other XR hip RT min 2V(w/wo pelvis)* RIGHT HIP WITH AP PELVIS - 2 views: wywy Other XR hip RT min 2V(w/wo pelvis)* CLINICAL HISTORY: Follow-up hip replacement wywy Other XR hip RT min 2V(w/wo pelvis)* COMPARISON: 11/26/2022 [facility] Other XR hip RT min 2V(w/wo pelvis)* AP view the pelvis and crosstable lateral view of the right hip were obtained. A right hip wywy Other XR hip RT min 2V(w/wo pelvis)* prosthesis is again visualized. The hardware appears intact and unchanged from the prior. There is wywy Other XR hip RT min 2V(w/wo pelvis)* no developing fracture or dislocation. Mild degenerative changes noted at the SI joints and lower wywy Other XR hip RT min 2V(w/wo pelvis)* imaged lumbar spine. There are no significant soft tissue abnormalities. [facility]wy Other XR hip RT min 2V(w/wo pelvis)* XR/XR hip RT min 2V(w/wo pelvis)* wywy Other XR hip RT min 2V(w/wo pelvis)* IMPRESSION: wywy Other XR hip RT min 2V(w/wo pelvis)* STABLE HIP REPLACEMENT [facility] [employer] Other XR hip RT min 2V(w/wo pelvis)* Impression dictated by: Katelin Murillo M.D.01/07/2023 4:27 PM wywy Other XR hip RT min 2V(w/wo pelvis)* Dictation Location: [place] [address] wywy Other XR hip RT min 2V(w/wo pelvis)* Transcribed By: RANULFO 01/07/23 [facility] wywy Other XR hip RT min 2V(w/wo pelvis)* Dictated By: Katelin Murillo MD 01/07/23 [facility] wywy Other XR hip RT min 2V(w/wo pelvis)* Signed By: wywy Other XR hip RT min 2V(w/wo pelvis)* 01/07/23 [facility] wywy Other XR hip RT min 2V(w/wo pelvis )*on 11-26-2022 XR hip RT min 2V(w/wo pelvis)* [facility] wywy Other XR hip RT min 2V(w/wo pelvis)* [facility] [address] [place] wywy Other XR hip RT min 2V(w/wo pelvis)* [address] [facility] wywy Other XR hip RT min 2V(w/wo pelvis)* [place] [address] wywy Other XR hip RT min 2V(w/wo pelvis)* XRay Report wywy Other XR hip RT min 2V(w/wo pelvis)* Signed wywy Other XR hip RT min 2V(w/wo pelvis)* Patient: Carolina Barajas February MR#: M wywy Other XR hip RT min 2V(w/wo pelvis)* [id number] wywy Other XR hip RT min 2V(w/wo pelvis)* : 1940 Acct:[id number] wywy Other XR hip RT min 2V(w/wo pelvis)* Age/Sex: 82 / F ADM Date: 11/26/22 wywy Other XR hip RT min 2V(w/wo pelvis)* [place] [facility] [place] Type: [facility] wywy Other XR hip RT min 2V(w/wo pelvis)* Attending Dr: Artur Oliveira II, MD wywy Other XR hip RT min 2V(w/wo pelvis)* Copies to: Artur Oliveira MD wywy Other XR hip RT min 2V(w/wo pelvis)* Ordering Provider: Artur Oliveira MD wywy Other XR hip RT min 2V(w/wo pelvis)* Date of Service: 11/26/22 wywy Other XR hip RT min 2V(w/wo pelvis)* XR/XR hip RT min 2V(w/wo pelvis)*: Status post total hip replacement, wywy Other XR hip RT min 2V(w/wo pelvis)* right;Aftercare following wywy Other XR hip RT min 2V(w/wo pelvis)* RIGHT HIP - 2 views: wywy Other XR hip RT min 2V(w/wo pelvis)* CLINICAL HISTORY: Follow-up right CLARIBEL wywy Other XR hip RT min 2V(w/wo pelvis)* COMPARISON: Right hip 10/13/2022 wywy Other XR hip RT min 2V(w/wo pelvis)* FINDINGS: Right hip prosthesis without radiographic complication. No acute bony process. wywy Other XR hip RT min 2V(w/wo pelvis)* XR/XR hip RT min 2V(w/wo pelvis)* wywy Other XR hip RT min 2V(w/wo pelvis)* IMPRESSION: wywy Other XR hip RT min 2V(w/wo pelvis)* NO EVIDENCE OF HARDWARE COMPLICATION.. wywy Other XR hip RT min 2V(w/wo pelvis)* Impression dictated by: Jason Dailey Jr., D.OAbby11/26/2022 3:18 PM wywy Other XR hip RT min 2V(w/wo pelvis)* Dictation Location: [facility] wywy Other XR hip RT min 2V(w/wo pelvis)* Transcribed By: RANULFO 11/26/22 1518 wywy Other XR hip RT min 2V(w/wo pelvis)* Dictated By: Jason Dailey Jr, DO 11/26/22 1517 wywy Other XR hip RT min 2V(w/wo pelvis)* Signed By: wywy Other XR hip RT min 2V(w/wo pelvis)* 11/26/22 [id number] wywy Other Automated erythrocytes count in urine sediment (number/area)Ordered By: Artur Oliveira on 09-29-2022 RBC Auto (Urine sed) [#/Area] 5-9 [HPF] 0-4 [facility] Automated leukocytes count i n urine sediment (number/area)Ordered By: Artur Oliveira on 09-29-2022 WBC Auto (Urine sed) [#/Area] 0-1 [HPF] 0-4 [facility] Basophils Auto (Bld) [#/Vol] Ordered By: Artur Oliveira on 09-29-2022 Basophils (Bld) [#/Vol] 0.0 10*3/uL 0.0-0.2 [facility] Basophils/100 WBC Auto (Bld) Ordered By: Artur Oliveira on 09-29-2022 Basophils/100 WBC (Bld) 0.6 % . [facility] Bilirubin Test strip Ql (U)O rdered By: Artur Oliveira on 09-29-2022 Bilirubin Ql (U) Negative Negative [facility] biopsyOrdered By: Artur Oliveira on 09-29-2022 CT biopsy 207 umol/L 0-285 [facility] Comment on above: Published reference interval for apparently healthysubjects between age 20 and 60 is 205 - 285 umol/L and in apoorly controlled diabetic population is 228 - 563 umol/Lwith a mean of 396 umol/L.Performed at: [address] [id number] Director: Sp Bass PhD, Phone: [phone] Color Auto (U)Ordered By: Shara Oliveira on 09-29-2022 Color (U) Yellow Yellow [facility] Creatinine and Glomerular fi ltration rate.predicted panel (S/P/Bld)Ordered By: Artur Oliveira on 09-29-2022 Creatinine [Mass/Vol] 0.62 mg/dL 0.44-1.03 [facility] Eosinophils Auto (Bld) [#/Vo l]Ordered By: Artur Oliveira on 09-29-2022 Eosinophils (Bld) [#/Vol] 0.2 10*3/uL 0.0-0.45 [facility] Eosinophils/100 WBC Auto (Bl d)Ordered By: Artur Oliveira on 09-29-2022 Eosinophils/100 WBC (Bld) 2.5 % . [facility] Erythrocyte distribution wid th Auto (RBC) [Ratio]Ordered By: Artur Oliveira on 09-29-2022 Erythrocyte distribution width (RBC) [Ratio] 13.7 % 11.9-15.3 [facility] Estimated glomerular filtrat ion rate (GFR) non- AmericanOrdered By: Artur Oliveira on 09-29-2022 GFR/1.73 sq M.predicted among non-blacks MDRD (S/P/Bld) [Vol rate/Area] > 60 mL/Min [facility] Hematocrit Auto (Bld) [Volum e fraction]Ordered By: Artur Oliveira on 09-29-2022 Hematocrit (Bld) [Volume fraction] 42.2 % 34.0-46.4 [facility] Hemoglobin [Mass/volume] in BloodOrdered By: Artur Oliveira on 09-29-2022 Hemoglobin (Bld) [Mass/Vol] 13.7 g/dL 11.8-15.4 [facility] Ketones Auto test strip (U) [Mass/Vol]Ordered By: Artur Oliveira on 09-29-2022 Ketones (U) [Mass/Vol] Negative Negative [facility] Laboratory - UrinalysisOrder ed By: Artur Oliveira on 09-29-2022 Hyaline casts LM Ql (Urine sed) None seen [LPF] 0-8 [facility] Leukocytes [#/volume] correc ramiro for nucleated erythrocytes in Blood by Automated counOrdered By: Artur Oliveira on 09-29-2022 WBC corrected for nucl RBC Auto (Bld) [#/Vol] 6.9 10*3/uL 3.8-11.6 [facility] Lymphocytes Auto (Bld) [#/Vo l]Ordered By: Artur Oliveira on 09-29-2022 Lymphocytes (Bld) [#/Vol] 1.6 10*3/uL 1.00-4.8 [facility] Lymphocytes/100 WBC Auto (Bl d)Ordered By: Artur Oliveira on 09-29-2022 Lymphocytes/100 WBC (Bld) 23.6 % . [facility] MCH Auto (RBC) [Entitic mass ]Ordered By: Artur Oliveira on 09-29-2022 MCH (RBC) [Entitic mass] 30.0 pg 24.7-34.3 [facility] MCHC Auto (RBC) [Mass/Vol]Or dered By: Artur Oliveira on 09-29-2022 MCHC (RBC) [Mass/Vol] 32.6 g/dL 32.0-35.0 [facility] MCV Auto (RBC) [Entitic vol] Ordered By: Artur Oliveira on 09-29-2022 MCV (RBC) [Entitic vol] 92.2 fL 80-100 [facility] Monocytes Auto (Bld) [#/Vol] Ordered By: Artur Oliveira on 09-29-2022 Monocytes (Bld) [#/Vol] 0.7 10*3/uL 0.0-0.8 [facility] Monocytes/100 WBC Auto (Bld) Ordered By: Artur Oliveira on 09-29-2022 Monocytes/100 WBC (Bld) 10.2 % . [facility] Neutrophils Auto (Bld) [#/Vo l]Ordered By: Artur Oliveira on 09-29-2022 Neutrophils (Bld) [#/Vol] 4.4 10*3/uL 1.8-7.7 [facility] Neutrophils/100 WBC Auto (Bl d)Ordered By: Artur Oliveira on 09-29-2022 Neutrophils/100 WBC (Bld) 63.1 % . [facility] Nitrite Test strip Ql (U)Ord ered By: Artur Oliveira on 09-29-2022 Nitrite Ql (U) Negative Negative [facility] No Panel InformationOrdered By: Artur Oliveira on 09-29-2022 25-Hydroxy Vitamin D Total 34.0 ng/mL 30-100 [facility] Comment on above: VITAMIN D STATUS 25( [place])VITAMIN D RANGE (ng/mL) Deficient <20 Insufficient 20 to <30Sufficient 30 to 100Reference: Amber VALERIO,Eric NC, Juan Manuel OJEDA, et al. Evaluation,treatment, and prevention of vitamin D deficiency; an Endocrine Society clinical practice guideline. JCEM. 2010; 96(7):1911-30. Estimated GFR () > 60 mL/Min [facility] Comment on above: GFR estimated refere nce range: According to KDOQI guidelines, <60 ml/min/1.73m2 is sufficient to diagnose a patient with chronic kidney disease. Pharmacy Creatinine Clearance (Chem N/A [facility] Nucleated erythrocytes [Pres ence] in Blood by Automated countOrdered By: Artur Oliveira on 09-29-2022 Nucleated RBC Auto Ql (Bld) 0.1 /100{WBC} 0-0.5 [facility] Platelet mean volume Auto (B ld) [Entitic vol]Ordered By: Artur Oliveira on 09-29-2022 Platelet mean volume (Bld) [Entitic vol] 8.3 fL 6.3-10.7 [facility] Platelets Auto (Bld) [#/Vol] Ordered By: Artur Oliveira on 09-29-2022 Platelets (Bld) [#/Vol] 181 10*3/uL 150-450 [facility] Protein Auto test strip (U) [Mass/Vol]Ordered By: Artur Oliveira on 09-29-2022 Protein (U) [Mass/Vol] Negative Negative [facility] RBC Auto (Bld) [#/Vol]Ordere d By: Artur Oliveira on 09-29-2022 RBC (Bld) [#/Vol] 4.57 10*6/uL 3.60-5.00 [facility] Serum or plasma anion gap de terminationOrdered By: Artur Oliveira on 09-29-2022 Anion gap [Moles/Vol] 11.7 mmol/L 6.0-15.0 [facility] Serum or plasma calcium fausto urement (mass/volume)Ordered By: Artur Oliveira on 09-29-2022 Calcium [Mass/Vol] 9.3 mg/dL 8.2-10.[address] [facility] Serum or plasma chloride sherwin surement (moles/volume)Ordered By: Artur Oliveira on 09-29-2022 Chloride [Moles/Vol] 105 mmol/L 95-114 [facility] Serum or plasma glucose fausto urement (mass/volume)Ordered By: Artur Oliveira on 09-29-2022 Glucose [Mass/Vol] 109 mg/dL 70-[address] [facility] Comment on above: ADA recommended refe rence rangeRandom Glucose Reference Range is dependent on time and content of last meal. Glucose of more than 200 mg/dL in a nonstressed, ambulatory subject supports the diagnosis of Diabetes Mellitus. Serum or plasma potassium me asurement (moles/volume)Ordered By: Artur Oliveira on 09-29-2022 Potassium [Moles/Vol] 4.0 mmol/L 3.5-5.1 [facility] Serum or plasma sodium measu rement (moles/volume)Ordered By: Artur Oliveira on 09-29-2022 Sodium [Moles/Vol] 138 mmol/L 136-[address] [facility] Serum or plasma total carbon dioxide measurement (moles/volume)Ordered By: Artur Oliveira on 09-29-2022 CO2 [Moles/Vol] 25.3 mmol/L 22.0-30.0 [facility] Serum or plasma urea nitroge n measurement (mass/volume)Ordered By: Artur Oliveira on 09-29-2022 Urea nitrogen [Mass/Vol] 17 mg/dL 9-23 [facility] Specific gravity Auto test s trip (U) [Rel density]Ordered By: Artur Oliveira on 09-29-2022 Specific gravity (U) [Rel density] 1.014 1.001-1.03 0 [facility] Squamous epithelial cells de tection in urine sediment by light microscopyOrdered By: Artur Oliveira on 09-29-2022 Epithelial cells.squamous LM Ql (Urine sed) 0-1 [HPF] 0-2 [facility] Urine bacteria detection by automated methodOrdered By: Artur Oliveira on 09-29-2022 Bacteria Auto Ql (U) None seen None Seen [facility] Urine clarity by refractomet ry automatedOrdered By: Artur Oliveira on 09-29-2022 Clarity Refractometry automated (U) Clear Clear [facility] Urine glucose measurement by automated test strip (mass/volume)Ordered By: Artur Oliveira on 09-29-2022 Glucose Auto test strip (U) [Mass/Vol] Normal mg/dL Normal [facility] Urine hemoglobin detection b y automated test stripOrdered By: Artur Oliveira on 09-29-2022 Hemoglobin Auto test strip Ql (U) 1+ Negative [facility] Urine leukocyte esterase det ection by automated test stripOrdered By: Artur Oliveira on 09-29-2022 Leukocyte esterase Auto test strip Ql (U) Negative Negative [facility] Urobilinogen Auto test strip (U) [Mass/Vol]Ordered By: Artur Oliveira on 09-29-2022 Urobilinogen (U) [Mass/Vol] Normal mg/dL Normal [facility] WBC Auto (Bld) [#/Vol]Ordere d By: Artur Oliveira on 09-29-2022 WBC (Bld) [#/Vol] 6.9 10*3/uL 3.8-11.[address] [facility] pH Auto test strip (U)Ordere d By: Artur Oliveira on 09-29-2022 pH (U) 6.0 [pH] 5.0-9.0 [facility] Automated erythrocytes count in urine sediment (number/area)Ordered By: Gonzalez Baires on 09-11-2022 RBC Auto (Urine sed) [#/Area] 10-19 [HPF] 0-4 [facility] Automated leukocytes count i n urine sediment (number/area)Ordered By: Gonzalez Baires on 09-11-2022 WBC Auto (Urine sed) [#/Area] 50-100 [HPF] 0-4 [facility] Basophils Auto (Bld) [#/Vol] Ordered By: Gonzalez Baires on 09-11-2022 Basophils (Bld) [#/Vol] 0.0 10*3/uL 0.0-0.2 [facility] Basophils/100 WBC Auto (Bld) Ordered By: Gonzalez Baires on 09-11-2022 Basophils/100 WBC (Bld) 0.6 % . [facility] Bilirubin Test strip Ql (U)O rdered By: Gonzalez Baires on 09-11-2022 Bilirubin Ql (U) Negative Negative [facility] Body fluid albumin measureme nt (mass/volume)Ordered By: Gonzalez Baires on 09-11-2022 Albumin (Body fld) [Mass/Vol] 3.7 g/dL 3.2-5.5 [facility] Cholesterol [Mass/volume] in Serum or PlasmaOrdered By: Gonzalez Baires on 09-11-2022 Cholesterol [Mass/Vol] 144 mg/dL 140-200 [facility] Comment on above: Chol less than 200 m g/dl low riskChol 201-239 mg/dl borderline riskChol 240 mg/dl and greater high risk Cholesterol in LDL Calc [Mas s/Vol]Ordered By: Gonzalez Baires on 09-11-2022 Cholesterol in LDL [Mass/Vol] 72 mg/dL 0-100 [facility] Comment on above: LDL ATP III CLASSIFI CATIONLDL less than 100 mg/dL OptimalLDL 100-129 mg/dL Near or above optimalLDL 130-159 mg/dL Borderline highLDL 160-189 mg/dL HighLDL greater than 189 mg/dL Very high Cholesterol in VLDL Calc [Ma ss/Vol]Ordered By: Gonzalez Baires on 09-11-2022 Cholesterol in VLDL [Mass/Vol] 18 mg/dL [facility] Color Auto (U)Ordered By: Gabriel Baires on 09-11-2022 Color (U) Yellow Yellow [facility] Creatinine and Glomerular fi ltration rate.predicted panel (S/P/Bld)Ordered By: Gonzalez Baires on 09-11-2022 Creatinine [Mass/Vol] 0.68 mg/dL 0.44-1.03 [facility] Eosinophils Auto (Bld) [#/Vo l]Ordered By: Gonzalez Baires on 09-11-2022 Eosinophils (Bld) [#/Vol] 0.2 10*3/uL 0.0-0.45 [facility] Eosinophils/100 WBC Auto (Bl d)Ordered By: Gonzalez Baires on 09-11-2022 Eosinophils/100 WBC (Bld) 3.0 % . [facility] Erythrocyte distribution wid th Auto (RBC) [Ratio]Ordered By: Gonzalez Baires on 09-11-2022 Erythrocyte distribution width (RBC) [Ratio] 14.1 % 11.9-15.3 [facility] Estimated glomerular filtrat ion rate (GFR) non- AmericanOrdered By: Gonzalez Baires on 09-11-2022 GFR/1.73 sq M.predicted among non-blacks MDRD (S/P/Bld) [Vol rate/Area] > 60 mL/Min [facility] Globulin Calc (S) [Mass/Vol] Ordered By: Gonzalez Baires on 09-11-2022 Globulin (S) [Mass/Vol] 2.6 g/dL [facility] Glucose mean value [Mass/vol ume] in Blood Estimated from glycated hemoglobinOrdered By: Gonzalez Baires on 09-11-2022 Average glucose Estimated from glycated hemoglobin (Bld) [Mass/Vol] 117 mg/dL [facility] Hematocrit Auto (Bld) [Volum e fraction]Ordered By: Gonzalez Baires on 09-11-2022 Hematocrit (Bld) [Volume fraction] 40.7 % 34.0-46.4 [facility] Hemoglobin A1c percentageOrd ered By: Gonzalez Baires on 09-11-2022 HbA1c (Bld) [Mass fraction] 5.7 % 4.3-5.6 [facility] Comment on above: Increased risk for d iabetes: 5.7 - 6.4diabetes: >6.4glycemic control for adults with diabetes: <7.0 Hemoglobin [Mass/volume] in BloodOrdered By: Gonzalez Baires on 09-11-2022 Hemoglobin (Bld) [Mass/Vol] 13.5 g/dL 11.8-15.4 [facility] Ketones Auto test strip (U) [Mass/Vol]Ordered By: Gonzalez Baires on 09-11-2022 Ketones (U) [Mass/Vol] Negative Negative [facility] Laboratory - UrinalysisOrder ed By: Gonzalez Baires on 09-11-2022 Hyaline casts LM Ql (Urine sed) 9-19 [LPF] 0-8 [facility] Leukocytes [#/volume] correc ramiro for nucleated erythrocytes in Blood by Automated counOrdered By: Gonzalez Baires on 09-11-2022 WBC corrected for nucl RBC Auto (Bld) [#/Vol] 6.5 10*3/uL 3.8-11.6 [facility] Lymphocytes Auto (Bld) [#/Vo l]Ordered By: Gonzalez Baires on 09-11-2022 Lymphocytes (Bld) [#/Vol] 1.3 10*3/uL 1.00-4.8 [facility] Lymphocytes/100 WBC Auto (Bl d)Ordered By: Gonzalez Baires on 09-11-2022 Lymphocytes/100 WBC (Bld) 20.5 % . [facility] MCH Auto (RBC) [Entitic mass ]Ordered By: Gonzalez Baires on 09-11-2022 MCH (RBC) [Entitic mass] 30.2 pg 24.7-34.3 [facility] MCHC Auto (RBC) [Mass/Vol]Or dered By: Gonzalez Baires on 09-11-2022 MCHC (RBC) [Mass/Vol] 33.2 g/dL 32.0-35.0 [facility] MCV Auto (RBC) [Entitic vol] Ordered By: Gonzalez Baires on 09-11-2022 MCV (RBC) [Entitic vol] 91.1 fL 80-100 [facility] Monocytes Auto (Bld) [#/Vol] Ordered By: Gonzalez Baires on 09-11-2022 Monocytes (Bld) [#/Vol] 0.6 10*3/uL 0.0-0.8 [facility] Monocytes/100 WBC Auto (Bld) Ordered By: Gonzalez Baires on 09-11-2022 Monocytes/100 WBC (Bld) 9.8 % . [facility] Neutrophils Auto (Bld) [#/Vo l]Ordered By: Gonzalez Baires on 09-11-2022 Neutrophils (Bld) [#/Vol] 4.3 10*3/uL 1.8-7.7 [facility] Neutrophils/100 WBC Auto (Bl d)Ordered By: Gonzalez Baires on 09-11-2022 Neutrophils/100 WBC (Bld) 66.1 % . [facility] Nitrite Test strip Ql (U)Ord ered By: Gonzalez Baires on 09-11-2022 Nitrite Ql (U) Positive Negative [facility] No Panel InformationOrdered By: Gonzalez Baires on 09-11-2022 Estimated GFR () > 60 mL/Min [facility] Comment on above: GFR estimated refere nce range: According to KDOQI guidelines, <60 ml/min/1.73m2 is sufficient to diagnose a patient with chronic kidney disease. Pharmacy Creatinine Clearance (Chem N/A [facility] Nucleated erythrocytes [Pres ence] in Blood by Automated countOrdered By: Gonzalez Baires on 09-11-2022 Nucleated RBC Auto Ql (Bld) 0.3 /100{WBC} 0-0.5 [facility] Platelet mean volume Auto (B ld) [Entitic vol]Ordered By: Gonzalez Baires on 09-11-2022 Platelet mean volume (Bld) [Entitic vol] 8.3 fL 6.3-10.7 [facility] Platelets Auto (Bld) [#/Vol] Ordered By: Gonzalez Baires on 09-11-2022 Platelets (Bld) [#/Vol] 170 10*3/uL 150-450 [facility] Protein Auto test strip (U) [Mass/Vol]Ordered By: Gonzalez Baires on 09-11-2022 Protein (U) [Mass/Vol] Trace mg/dL Negative [facility] Protein [Mass/volume] in Ser um or PlasmaOrdered By: Gonzalez Baires on 09-11-2022 Protein [Mass/Vol] 6.3 g/dL 6.1-7.[address] [facility] RBC Auto (Bld) [#/Vol]Ordere d By: Gonzalez Baires on 09-11-2022 RBC (Bld) [#/Vol] 4.47 10*6/uL 3.60-5.00 [facility] Serum or plasma alanine galeas otransferase measurement without P-5'-P (enzymatic activiOrdered By: Gonzalez Baires on 09-11-2022 ALT No additional P-5'-P [Catalytic activity/Vol] 17 U/L 10-60 [facility] Serum or plasma albumin/glob ulin mass ratioOrdered By: Gonzalez Baires on 09-11-2022 Albumin/Globulin [Mass ratio] 1.4 {ratio} [facility] Serum or plasma alkaline judah sphatase measurement (enzymatic activity/volume)Ordered By: Gonzalez Baires on 09-11-2022 ALP [Catalytic activity/Vol] 68 U/L 32-92 [facility] Serum or plasma anion gap de terminationOrdered By: Gonzalez Baires on 09-11-2022 Anion gap [Moles/Vol] 14.3 mmol/L 6.0-15.0 [facility] Serum or plasma aspartate am inotransferase measurement (enzymatic activity/volume)Ordered By: Gonzalez Baires on 09-11-2022 AST [Catalytic activity/Vol] 22 U/L 10-42 [facility] Serum or plasma calcium fausto urement (mass/volume)Ordered By: Gonzalez Baires on 09-11-2022 Calcium [Mass/Vol] 9.2 mg/dL 8.2-10.[address] [facility] Serum or plasma chloride sherwin surement (moles/volume)Ordered By: Gonzalez Baires on 09-11-2022 Chloride [Moles/Vol] 104 mmol/L 95-114 [facility] Serum or plasma glucose fausto urement (mass/volume)Ordered By: Gonzalez Baires on 09-11-2022 Glucose [Mass/Vol] 92 mg/dL 70-[address] [facility] Comment on above: ADA recommended refe rence rangeRandom Glucose Reference Range is dependent on time and content of last meal. Glucose of more than 200 mg/dL in a nonstressed, ambulatory subject supports the diagnosis of Diabetes Mellitus. Serum or plasma high density lipoprotein (HDL) cholesterol measurementOrdered By: Gonzalez Baires on 09-11-2022 Cholesterol in HDL [Mass/Vol] 53 mg/dL 35-85 [facility] Comment on above: HDL CHOL ATP-III CLA SSIFICATION Cardiovascular RiskHDL > or equal to 60 mg/dL LOWHDL < 40 mg/dL HIGH Serum or plasma potassium me asurement (moles/volume)Ordered By: Gonzalez Baires on 09-11-2022 Potassium [Moles/Vol] 4.5 mmol/L 3.5-5.1 [facility] Serum or plasma sodium measu rement (moles/volume)Ordered By: Gonzalez Baires on 09-11-2022 Sodium [Moles/Vol] 139 mmol/L 136-[address] [facility] Serum or plasma total biliru bin measurement (mass/volume)Ordered By: Gonzalez Baires on 09-11-2022 Bilirubin [Mass/Vol] 0.6 mg/dL 0.3-1.2 [facility] Serum or plasma total carbon dioxide measurement (moles/volume)Ordered By: Gonzalez Baires on 09-11-2022 CO2 [Moles/Vol] 25.2 mmol/L 22.0-30.0 [facility] Serum or plasma total choles terol/high density lipoprotein (HDL) cholesterol mass ratOrdered By: Gonzalez Baires on 09-11-2022 Cholesterol.total/Cho lesterol in HDL [Mass ratio] 2.7 {ratio} <5.0 [facility] Serum or plasma urea nitroge n measurement (mass/volume)Ordered By: Gonzalez Baires on 09-11-2022 Urea nitrogen [Mass/Vol] 16 mg/dL 9-23 [facility] Specific gravity Auto test s trip (U) [Rel density]Ordered By: Gonzalez Baires on 09-11-2022 Specific gravity (U) [Rel density] 1.019 1.001-1.03 0 [facility] Squamous epithelial cells de tection in urine sediment by light microscopyOrdered By: Gonzalez Baires on 09-11-2022 Epithelial cells.squamous LM Ql (Urine sed) 3-4 [HPF] 0-2 [facility] Triglyceride [Mass/volume] i n Serum or PlasmaOrdered By: Gonzalez Baires on 09-11-2022 Triglyceride [Mass/Vol] 93 mg/dL 35-149 [facility] Comment on above: TRIG ATP III CLASSIF ICATIONTRIG less than 150 mg/dL NormalTRIG 150-199 mg/dL Borderline highTRIG 200-500 mg/dL High TRIG greater than 500 mg/dL Very highStandard traceable to the Center for Disease Conrtrol and Prevention (CDC) test method. Urine bacteria detection by automated methodOrdered By: Gonzalez Baires on 09-11-2022 Bacteria Auto Ql (U) 4+ None Seen [facility] Urine clarity by refractomet ry automatedOrdered By: Gonzalez Baires on 09-11-2022 Clarity Refractometry automated (U) Clear Clear [facility] Urine culture routineOrdered By: Gonzalez Baires on 09-11-2022 Bacteria identified Cx Nom (U) Escherichia coli [facility] Bacteria identified Cx Nom (U) Escherichia coli [facility] Urine glucose measurement by automated test strip (mass/volume)Ordered By: Gonzalez Baires on 09-11-2022 Glucose Auto test strip (U) [Mass/Vol] Normal mg/dL Normal [facility] Urine hemoglobin detection b y automated test stripOrdered By: Gonzalez Baires on 09-11-2022 Hemoglobin Auto test strip Ql (U) 1+ Negative [facility] Urine leukocyte esterase det ection by automated test stripOrdered By: Gonzalez Baires on 09-11-2022 Leukocyte esterase Auto test strip Ql (U) 3+ Negative [facility] Urobilinogen Auto test strip (U) [Mass/Vol]Ordered By: Gonzalez Baires on 09-11-2022 Urobilinogen (U) [Mass/Vol] Normal mg/dL Normal [facility] WBC Auto (Bld) [#/Vol]Ordere d By: Gonzalez Baires on 09-11-2022 WBC (Bld) [#/Vol] 6.5 10*3/uL 3.8-11.[address] [facility] pH Auto test strip (U)Ordere d By: Gonzalez Baires on 09-11-2022 pH (U) 7.0 [pH] 5.0-9.0 [facility] Blood hemoglobin measurement (mass/volume)Ordered By: Artur Oliveira on 06-19-2022 Hemoglobin (Bld) [Mass/Vol] 12.9 g/dL 11.8-15.4 [facility] Body fluid albumin measureme nt (mass/volume)Ordered By: Artur Oliveira on 06-19-2022 Albumin (Body fld) [Mass/Vol] 3.5 g/dL 3.2-5.5 [facility] Cotinine [Mass/volume] in Se rum or PlasmaOrdered By: Artur Oliveira on 06-19-2022 Cotinine [Mass/Vol] <1.0 ng/mL . [facility] Comment on above: This test was develo ped and its performance characteristicsdetermined by [employer]. It has not been cleared orapproved by the Food and Drug Administration.Cotinine levels greater than 20.0 are consistent with theuse of tobacco or tobacco cessation products.Performed at: [facility] [id number] Director: Bisi Cedillo MD, Phone: [phone] Glucose mean value [Mass/vol ume] in Blood Estimated from glycated hemoglobinOrdered By: Artur Oliveira on 06-19-2022 Average glucose Estimated from glycated hemoglobin (Bld) [Mass/Vol] 120 mg/dL [facility] Hemoglobin A1c percentageOrd ered By: Artur Oliveira on 06-19-2022 HbA1c (Bld) [Mass fraction] 5.8 % 4.3-5.6 [facility] Comment on above: Increased risk for d iabetes: 5.7 - 6.4diabetes: >6.4glycemic control for adults with diabetes: <7.0 Nicotine [Mass/volume] in Se rum or PlasmaOrdered By: Artur Oliveira on 06-19-2022 Nicotine [Mass/Vol] <1.0 ng/mL . [facility] Comment on above: This test was develo ped and its performance characteristicsdetermined by [employer]. It has not been cleared orapproved by the Food and Drug Administration.Nicotine levels greater than 2.0 are consistent with theuse of tobacco or tobacco cessation products. No Panel InformationOrdered By: Artru Oliveira on 06-19-2022 25-Hydroxy Vitamin D Total 17.0 ng/mL 30-100 [facility] Comment on above: VITAMIN D STATUS 25( [place])VITAMIN D RANGE (ng/mL) Deficient <20 Insufficient 20 to <30Sufficient 30 to 100Reference: Amber MF,Eric NC, Juan Manuel OJEDA, et al. Evaluation,treatment, and prevention of vitamin D deficiency; an Endocrine Society clinical practice guideline. JCEM. 2010; 96(7):1911-30. XR knee RT 3Von 03-19-2022 XR knee RT 3V [facility] [employer] Other XR knee RT 3V [facility] [employer] Other XR knee RT 3V [address] [facility] [employer] Other XR knee RT 3[place] [address] [facility] [employer] Other XR knee RT 3V XRay Report [facility] [employer] Other XR knee RT 3V Signed [facility] Other XR knee RT 3V Patient: Hung Barajas February MR#: M [facility] Other XR knee RT 3V [id number] [employer] Other XR knee RT 3V : 1940 Acct:[id number] [facility] Other XR knee RT 3V Age/Sex: 82 / F ADM Date: 03/19/22 [facility] Other XR knee RT 3V Loc: [facility] Room: Type : [facility] wywy Other XR knee RT 3V Attending Dr: Artur Oliveira II, MD [facility] Other XR knee RT 3V Copies to: Artur Oliveira MD [facility] Other XR knee RT 3V Ordering Provider: Sandhya Oliveira MD [employer] Other XR knee RT 3V Date of Service: 03/19/22 wywy Other XR knee RT 3V 33030) XR/XR hip RT min 2V(w/wo pelvis)*: Right hip pain [facility] Other XR knee RT 3V ([id number]) XR/XR knee RT 3V - NOT FOR ER USE: PAIN [facility] Other XR knee RT 3V RIGHT HIP - 2 views: Right knee 3 views [facility] Other XR knee RT 3V CLINICAL HISTORY: Ri ght hip pain for weeks. [facility] Other XR knee RT 3V COMPARISON: Right hi p 09/05/2021 [facility] Other XR knee RT 3V FINDINGS: Right hip: Moderate degenerative changes of the right hip. No acute bony process. [facility] Other XR knee RT 3V Degenerative changes are also noted involving the visualized SI joints and pubic symphysis. [facility] Other XR knee RT 3V Degenerative changes left hip. [facility] Other XR knee RT 3V Right knee: Vascular calcifications. No hardware complication. No acute bony process. [facility] Other XR knee RT 3V X R/XR hip RT min 2V(w/wo pelvis)* [facility] Other XR knee RT 3V IMPRESSION: [employer] Other XR knee RT 3V MODERATE DEGENERATIV E CHANGES RIGHT HIP. NO HARDWARE COMPLICATION INVOLVING THE RIGHT KNEE. NO wywy Other XR knee RT 3V ACUTE BONY PROCESS.. [employer] Other XR knee RT 3V Impression dictated by: Jason Dailey Jr., D.OAbby03/19/2022 4:38 PM wywy Other XR knee RT 3V Dictation Location: [place] [address] [facility]wy Other XR knee RT 3V Transcribed By: PWS 03/19/22 [facility] wywy Other XR knee RT 3V Dictated By: Jason Dailey Jr, DO 03/19/22 [facility] Other XR knee RT 3V Signed By: wywy Other XR knee RT 3V 03/19/22 1638 [employer] Other CBC AUTO DIFFon 02-22-2021 BASO # 0.0 103/ul Normal 0.0-0.[address] [facility] Comment on above: Performed By: #### C BC #### [facility] [address] [id number] Moy Katelin Basophils/100 WBC (Bld) 0.7 % Normal 0.2-2.[address] [facility] Comment on above: Performed By: #### C BC #### [facility] [address] [id number] Moy Katelin EO # 0.2 103/ul Normal 0.0-0.[address] [facility] Comment on above: Performed By: #### C BC #### [facility] [address] [place] [address] Moy Katelin Eosinophils/100 WBC (Bld) 3.3 % Normal 0.9-7.[address] [facility] Comment on above: Performed By: #### C BC #### [facility] [address] [place], [place] [address] Moy Katelin Erythrocyte distribution width (RBC) [Ratio] 13.2 % Normal 11.0-15.[address] [facility] Comment on above: Performed By: #### C BC #### [facility] [address] [place], [place] [address] Moy Katelin Hematocrit (Bld) [Volume fraction] 38.6 % Normal 36.0-48.[address] [facility] Comment on above: Performed By: #### C BC #### [facility] [address] [place], [place] [address] Moy Katelin Hemoglobin (Bld) [Mass/Vol] 12.7 g/dL Normal 12.0-16.[address] [facility] Comment on above: Performed By: #### C BC #### [facility] [address] [place], [place] [address] Moy Katelin IG # 0.01 10e3/ul Normal 0.00-0.[address] [facility] Comment on above: Performed By: #### C BC #### [facility] [address] [place] [address] Moy Katelin IG % 0.2 % Normal 0.0-0.5 [facility] Comment on above: Performed By: #### C BC #### [facility] [address] [place], [place] [address] Moy Katelin LYMPH # 1.4 103/ul Normal 1.2-3.[address] [facility] Comment on above: Performed By: #### C BC #### [facility] [address] [place], [place] [address] Moy Katelin Lymphocytes/100 WBC (Bld) 24.7 % Normal 20.5-60.0 [facility] Comment on above: Performed By: #### C BC #### [facility] [address] [place] [address] Moy Thomason MANUAL DIFF REQ NO Normal [facility] Comment on above: Performed By: #### C BC #### [facility] [address] [place] [address] Moyjanessa Fangen MCH (RBC) [Entitic mass] 30.5 pg Normal 26.7-34.0 [facility] Comment on above: Performed By: #### C BC #### [facility] [address] [place], [place] [address] Moyjanessa Thomason MCHC (RBC) [Mass/Vol] 32.9 g/dL Normal 29.9-35.2 [facility] Comment on above: Performed By: #### C BC #### [facility] [address] [place] [address] Moy Katelin MCV (RBC) [Entitic vol] 92.8 fL Normal 81.0-99.0 [facility] Comment on above: Performed By: #### C BC #### [facility] [address] [place], [place] [address] Moy Katelin MONO # 0.7 103/ul Normal 0.3-0.8 [facility] Comment on above: Performed By: #### C BC #### [facility] [address] [place], [place] [address] Moy Katelin Monocytes/100 WBC (Bld) 12.2 % Critically high 1.7-12.0 [facility] Comment on above: Performed By: #### C BC #### [facility] [address] [place], [place] [address] Moyjanessa Fangen NEUT # 3.4 103/ul Normal 1.4-6.5 [facility] Comment on above: Performed By: #### C BC #### [facility] [address] [place], [place] [address] Moy Katelin Neutrophils/100 WBC (Bld) 58.9 % Normal 43.0-75.0 [facility] Comment on above: Performed By: #### C BC #### [facility] [address] [place], [place] [address] Moy Katelin Platelet mean volume (Bld) [Entitic vol] 9.7 fL Normal 9.5-13.5 [facility] Comment on above: Performed By: #### C BC #### [facility] [address] [place] [address] Moy Katelin PLT 195 103/ul Normal 150-[address] [facility] Comment on above: Performed By: #### C BC #### [facility] [address] [place], [place] [address] Moy Katelin RBC 4.16 106/ul Critically low 4.20-5.40 [facility] Comment on above: Performed By: #### C BC #### [facility] [address] [place], [place] [address] Moy Katelin WBC 5.8 103/ul Normal 4.0-11.0 [facility] Comment on above: Performed By: #### C BC #### [facility] [address] [place], [place] [address] Moy Katelin LIPID PROFILEon 02-22-2021 CHOL-HDL RATIO NORM SEE BELOW Normal [facility] Comment on above: Result Comment: 3.3 - 4.4 LOW RISK 4.4 - 7.1 AVERAGE RISK 7.1 - 11.0 MODERATE RISK >11.0 HIGH RISK Performed By: #### C MP, TSH, LIPID #### [facility] [address] [place], [place] [address] Moy Katelin Cholesterol [Mass/Vol] 157 mg/dL Normal <=[address] [facility] Comment on above: Performed By: #### C MP, TSH, LIPID #### [facility] [address] [id number] Moy Katelin Cholesterol in HDL [Mass/Vol] 66 mg/dL Normal [facility] Comment on above: Performed By: #### C MP, TSH, LIPID #### [facility] [address] [id number] Moy Katelin Cholesterol in LDL [Mass/Vol] 75.8 mg/dL Normal [facility] Comment on above: Performed By: #### C MP, TSH, LIPID #### [facility] [address] [id number] Moy Katelin Cholesterol.total/Cho lesterol in HDL [Mass ratio] 2.4 {ratio} Normal [facility] Comment on above: Performed By: #### C MP, TSH, LIPID #### [facility] [address] [id number] Moy Katelin HDL NORMAL > or = 60 mg/dl - LO W CARDIOVASCULAR RISK <40 mg/dl - HIGH CARDIOVASCULAR RISK Normal [facility] Comment on above: Performed By: #### C MP, TSH, LIPID #### [facility] [address] [id number] Moy Katelin LDL CALC NORMAL SEE BELOW Normal [facility] Comment on above: Result Comment: <100 mg/dl OPTIMAL 100 - 129 mg/dl NEAR OR ABOVE OPTIMAL 130 - 159 mg/dl BORDERLINE HIGH 160 - 189 mg/dl HIGH >190 mg/dl VERY HIGH Performed By: #### C MP, TSH, LIPID #### [facility] [address] [id number] Moy Katelin Triglyceride [Mass/Vol] 76 mg/dL Normal <=[address] [facility] Comment on above: Performed By: #### C MP, TSH, LIPID #### [facility] [address] [id number] Moy Katelin VLDL CALC 15.2 mg/dL Normal [facility] Comment on above: Performed By: #### C MP, TSH, LIPID #### [facility] [address] [place], [place] [address] Moy Katelin PROF 14(COMP METB)on 021 Albumin [Mass/Vol] 3.5 g/dL Normal 3.5-5.[address] [facility] Comment on above: Performed By: #### C MP, TSH, LIPID #### [facility] [address] [id number] Moy Katelin Albumin/Globulin [Mass ratio] 1.0 {ratio} Normal [facility] Comment on above: Performed By: #### C MP, TSH, LIPID #### [facility] [address] [id number] Moy Katelin ALP [Catalytic activity/Vol] 66 U/L Normal 38-126 [facility] Comment on above: Performed By: #### C MP, TSH, LIPID #### [facility] [address] [address] Moy Katelin ALT [Catalytic activity/Vol] 18 U/L Normal 9-52 [facility] Comment on above: Performed By: #### C MP, TSH, LIPID #### [facility] [address] [address] Moy Katelin Anion gap [Moles/Vol] 11.8 mmol/L Normal [facility] Comment on above: Performed By: #### C MP, TSH, LIPID #### [facility] [address] [address] Moy Katelin AST [Catalytic activity/Vol] 27 U/L Normal 14-36 [facility] Comment on above: Performed By: #### C MP, TSH, LIPID #### [facility] [address] [address] Moy Katelin Bilirubin [Mass/Vol] 0.4 mg/dL Normal 0.2-1.3 [facility] Comment on above: Performed By: #### C MP, TSH, LIPID #### [facility] [address] [address] Moy Katelin Calcium [Mass/Vol] 9.2 mg/dL Normal 8.4-10.2 [facility] Comment on above: Performed By: #### C MP, TSH, LIPID #### [facility] [address] [address] Moy Katelin Chloride [Moles/Vol] 109 mmol/L Critically high 98-[address] [facility] Comment on above: Performed By: #### C MP, TSH, LIPID #### [facility] [address] [address] Moy Katelin CO2 [Moles/Vol] 27.3 mmol/L Normal 22.0-30.0 [facility] Comment on above: Performed By: #### C MP, TSH, LIPID #### [facility] [address] [place] [address] Moy Katelin Creatinine [Mass/Vol] 0.75 mg/dL Normal 0.52-1.[address] [facility] Comment on above: Performed By: #### C MP, TSH, LIPID #### [facility] [address] [address] Moy Katelin EGFR-AF KYRGYZ >60 Normal >=60 [facility] Comment on above: Performed By: #### C MP, TSH, LIPID #### [facility] [address] [place] [address] Moy Katelin EGFR-NON AF KYRGYZ >60 Normal >=[address] [facility] Comment on above: Performed By: #### C MP, TSH, LIPID #### [facility] [address] [address] Moy Katelin Globulin (S) [Mass/Vol] 3.4 g/dL Normal [facility] Comment on above: Performed By: #### C MP, TSH, LIPID #### [facility] [address] [place] [address] Moy Katelin Glucose [Mass/Vol] 93 mg/dL Normal 74-106 [facility] Comment on above: Performed By: #### C MP, TSH, LIPID #### [facility] [address] [place] [address] Moy Katelin Potassium [Moles/Vol] 4.1 mmol/L Normal 3.4-5.[address] [facility] Comment on above: Performed By: #### C MP, TSH, LIPID #### [facility] [address] [place] [address] Moy Katelin Protein [Mass/Vol] 6.9 g/dL Normal 6.1-8.[address] [facility] Comment on above: Performed By: #### C MP, TSH, LIPID #### [facility] [address] [place], [place] [address] Moy Katelin Sodium [Moles/Vol] 144 mmol/L Normal 137-[address] [facility] Comment on above: Performed By: #### C MP, TSH, LIPID #### [facility] [address] [place] [address] Moy Katelin Urea nitrogen [Mass/Vol] 16.0 mg/dL Normal 7.0-17.0 [facility] Comment on above: Performed By: #### C MP, TSH, LIPID #### [facility] [address] [place] [address] Moy Katelin Urea nitrogen/Creatinine [Mass ratio] 21.3 mg/mg Normal [facility] Comment on above: Performed By: #### C MP, TSH, LIPID #### [facility] [address] [place], [place] [id number] Moy Katelin TSHon 02-22-2021 TSH 2.661 uIU/mL Normal 0.470-4.68 0 [facility] Comment on above: Performed By: #### C MP, TSH, LIPID #### [facility] [address] [place] [address] Moy Katelin TSH RANGE SEE BELOW Normal [facility] Comment on above: Result Comment: <0.3 4 UIU/ml HYPERTHYROID 0.34-5.60 UIU/ml EUTHYROID >5.60 UIU/ml HYPOTHYROID Performed By: #### C MP, TSH, LIPID #### [facility] [address] [place], [place] [id number] Moy Katelin Vital Signs Date Time Vital Sign Value Performing Clinician Facility 06-23-2024 09:01-0400 Blood Pressure Location MARY ZABALA [facility] 06-23-2024 09:01-0400 Diastolic blood pressure 74 mm[Hg] MARY RUY [facility] 06-23-2024 09:01-0400 Heart rate 60 /min MARY RUY [facility] 06-23-2024 09:01-0400 Respiratory rate 19 /min MARY RUY [facility] 06-23-2024 09:01-0400 Systolic blood pressure 148 mm[Hg] MARY RUY [facility] 04-26-2024 10:14-0400 Body height 154.94 cm DO Gonzalez Viry Work Phone: [facility] 04-26-2024 10:14-0400 Body mass index (BMI) [Ratio] 28.1 kg/m2 DO Gonzalez Gonzalezjorge Work Phone: [facility] 04-26-2024 10:14-040 Body temperature 97.8 [degF] DO Gonzalez Lisajorge Work Phone: [facility] 04-26-2024 10:14-0400 Body weight 67.58 kg DO Gonzalez Viry Work Phone: [facility] 04-26-2024 10:14-0400 Diastolic blood pressure 84 mm[Hg] DO Gonzalez Gonzalezjorge Work Phone: [facility] 04-26-2024 10:14-0400 Heart rate 72 /min DO Gonzalez Gonzalezjorge Work Phone: [facility] 04-26-2024 10:14-0400 SaO2% (BldA) [Mass fraction] 98 % DO Gonzalez Baires Work Phone: [facility] 04-26-2024 10:14-0400 Systolic blood pressure 138 mm[Hg] DO Gonzalez Baires Work Phone: [facility] 12-15-2023 14:36-0400 Blood Pressure Location MARY RUY [facility] 12-15-2023 14:36-0400 Body temperature 98.42 [degF] MARY RUY [facility] 12-15-2023 14:36-0400 Diastolic blood pressure 82 mm[Hg] MARY RUY [facility] 12-15-2023 14:36-0400 Heart rate 68 /min MARY RUY [facility] 12-15-2023 14:36-0400 Respiratory rate 16 /min MARY RUY [facility] 12-15-2023 14:36-0400 Systolic blood pressure 136 mm[Hg] MARY RUY [facility] 10-22-2023 10:30-0500 Body height 154.94 cm Gonzalez Baires Other [employer] [facility] Other 10-22-2023 10:30-0500 Body mass index (BMI) [Ratio] 28.91 kg/m2 Gonzalez Baires Other [employer] [facility] Other 10-22-2023 10:30-0500 Body temperature 98.9 [degF] Gonzalez Baires Other [employer] [facility] Other 10-22-2023 10:30-0500 Body weight 69.4 kg Gonzalez Baires Other [facility] Other 10-22-2023 10:30-0500 Diastolic blood pressure 78 mm[Hg] Gonzalez Baires Other [facility] Other 10-22-2023 10:30-0500 Respiratory rate 18 /min Gonzalez Baires Other [facility] Other 10-22-2023 10:30-0500 SaO2% (BldA) [Mass fraction] 97 % Gonzalez Baires Other [facility] Other 10-22-2023 10:30-0500 Systolic blood pressure 124 mm[Hg] Gonzalez Baires Other [facility] Other 09-01-2023 10:30-0500 Blood Pressure Location MARY RUY [facility] 09-01-2023 10:30-0500 Diastolic blood pressure 69 mm[Hg] MARY RUY [facility] 09-01-2023 10:30-0500 Heart rate 80 /min MARY RUY [facility] 09-01-2023 10:30-0500 Respiratory rate 16 /min MARY RUY [facility] 09-01-2023 10:30-0500 Systolic blood pressure 129 mm[Hg] MARY RUY [facility] 07-14-2023 09:35-0400 Blood Pressure Location MARY RUY [facility] 07-14-2023 09:35-0400 Diastolic blood pressure 90 mm[Hg] MARY RUY [facility] 07-14-2023 09:35-0400 Heart rate 62 /min MARY ZABALA [facility] 07-14-2023 09:35-0400 Respiratory rate 16 /min MARY ZABALA [facility] 07-14-2023 09:35-0400 Systolic blood pressure 178 mm[Hg] MARY RUY [facility] 06-10-2023 13:40-0400 Body height 154.94 cm Gonzalez Baires Other [facility] Other 06-10-2023 13:40-0400 Body mass index (BMI) [Ratio] 28.72 kg/m2 Gonzalez Baires Other [facility] Other 06-10-2023 13:40-0400 Body temperature 98.5 [degF] Gonzalez Baires Other [facility] Other 06-10-2023 13:40-0400 Body weight 68.95 kg Gonzalez Baires Other [facility] Other 06-10-2023 13:40-0400 Diastolic blood pressure 80 mm[Hg] Gonzalez Baires Other [facility] Other 06-10-2023 13:40-0400 Respiratory rate 16 /min Gonzalez Baires Other [facility] Other 06-10-2023 13:40-0400 SaO2% (BldA) [Mass fraction] 97 % Gonzalez Baires Other [facility] Other 06-10-2023 13:40-0400 Systolic blood pressure 140 mm[Hg] Gonzalez Baires Other [facility] Other 04-16-2023 11:10-0400 Body height 154.94 cm Gonzalez Baires Other [facility] Other 04-16-2023 11:10-0400 Body mass index (BMI) [Ratio] 28.34 kg/m2 Gonzalez Lisajorge Other [facility] Other 04-16-2023 11:10-0400 Body temperature 98.4 [degF] Gonzalez Baires Other [facility] Other 04-16-2023 11:10-0400 Body weight 68.04 kg Gonzalez Baires Other [facility] Other 04-16-2023 11:10-0400 Diastolic blood pressure 78 mm[Hg] Gonzalez Baires Other [facility] Other 04-16-2023 11:10-0400 Respiratory rate 18 /min Gonzalez Baires Other [facility] Other 04-16-2023 11:10-0400 SaO2% (BldA) [Mass fraction] 96 % Gonzalez Baires Other [facility] Other 04-16-2023 11:10-0400 Systolic blood pressure 138 mm[Hg] Gonzalez Baires Other [facility] Other 01-14-2023 10:30-0400 Body height 154.94 cm Tyler Medina Other [facility] Other 01-14-2023 10:30-0400 Body mass index (BMI) [Ratio] 28.15 kg/m2 Tyler Medina Other [facility] Other 01-14-2023 10:30-0400 Body weight 67.59 kg Tyler Medina Other [facility] Other 01-14-2023 10:30-0400 Diastolic blood pressure 70 mm[Hg] Tyler Medina Other [facility] Other 01-14-2023 10:30-0400 Systolic blood pressure 142 mm[Hg] Tyler Medina Other [facility] Other 10-13-2022 12:55-0500 Diastolic blood pressure 83 mm[Hg] DO Gonzalez Baires Work Phone: [facility] 10-13-2022 12:55-0500 Heart rate 82 /min DO Gonzalez Baires Work Phone: [facility] 10-13-2022 12:55-0500 Respiratory rate 16 /min DO Gonzalez Baires Work Phone: [facility] 10-13-2022 12:55-0500 Systolic blood pressure 155 mm[Hg] DO Gonzalez Baires Work Phone: [facility] 10-13-2022 11:55-0500 Inhaled oxygen flow rate 2 L/min DO Gonzalez Baires Work Phone: [facility] 10-13-2022 11:55-0500 SaO2% (BldA) [Mass fraction] 100 % DO Gonzalez Baires Work Phone: [facility] 10-13-2022 10:30-0500 Body temperature 98 [degF] DO Gonzalez Baires Work Phone: [facility] 10-13-2022 07:08-0500 Body height 158.75 cm DO Gonzalez Baires Work Phone: [facility] 10-13-2022 07:08-0500 Body mass index (BMI) [Ratio] 27.8 kg/m2 DO Gonzalez Baires Work Phone: [facility] 10-13-2022 07:08-0500 Body weight 70 kg DO Gonzalez Baires Work Phone: [facility] 09-26-2022 10:45-0500 Body height 154.94 cm Artur [place] Other [facility] Other 09-26-2022 10:45-0500 Body mass index (BMI) [Ratio] 29.09 kg/m2 Artur [place] Other [facility] Other 09-26-2022 10:45-0500 Body weight 69.85 kg Artur Tee II Other [facility] Other 06-19-2022 12:15-0400 Body height 154.94 cm Artur Tee II Other [facility] Other 06-19-2022 12:15-0400 Body mass index (BMI) [Ratio] 29.28 kg/m2 Artur [place] Other [facility] Other 06-19-2022 12:15-0400 Body weight 70.31 kg Artur [place] Other [facility] Other 03-19-2022 15:30-0400 Body height 154.94 cm Artur Tee II Other [facility] Other 03-19-2022 15:30-0400 Body mass index (BMI) [Ratio] 29.66 kg/m2 Artur [place] Other [facility] Other 03-19-2022 15:30-0400 Body weight 71.22 kg Artur [place] Other [facility] Other 03-05-2022 10:50-0400 Body height 154.94 cm Gonzalez Baires Other [facility] Other 03-05-2022 10:50-0400 Body mass index (BMI) [Ratio] 29.66 kg/m2 Gonzalez Baires Other [facility] Other 03-05-2022 10:50-0400 Body temperature 97.4 [degF] Gonzalez Baires Other [facility] Other 03-05-2022 10:50-0400 Body weight 71.22 kg Gonzalez Baires Other [facility] Other 03-05-2022 10:50-0400 Diastolic blood pressure 88 mm[Hg] Gonzalez Baires Other [facility] Other 03-05-2022 10:50-0400 Respiratory rate 18 /min Gonzalez Baires Other [facility] Other 03-05-2022 10:50-0400 SaO2% (BldA) [Mass fraction] 98 % Gonzalez Baires Other [facility] Other 03-05-2022 10:50-0400 Systolic blood pressure 134 mm[Hg] Gonzalez Baires Other [facility] Other 09-02-2021 11:30-0500 Body height 154.94 cm Gonzalez Baires Other [facility] Other 09-02-2021 11:30-0500 Body mass index (BMI) [Ratio] 29.09 kg/m2 Gonzalez Baires Other [facility] Other 09-02-2021 11:30-0500 Body temperature 97.5 [degF] Gonzalez Baires Other [facility] Other 09-02-2021 11:30-0500 Body weight 69.85 kg Gonzalez Baires Other [facility] Other 09-02-2021 11:30-0500 Diastolic blood pressure 74 mm[Hg] Gonzalez Baires Other [facility] Other 09-02-2021 11:30-0500 Respiratory rate 18 /min Gonzalez Baires Other [facility] Other 09-02-2021 11:30-0500 SaO2% (BldA) [Mass fraction] 98 % Gonzalez Baires Other [facility] Other 09-02-2021 11:30-0500 Systolic blood pressure 150 mm[Hg] Gonzalez Baires Other [facility] Other Encounters Encounter Date Encounter Type Care Provider Facility Start: 06-23-2024 End: 06-23-2024 ambulatory PA-C MARY ZABALA Facility:[facility] Start: 06-23-2024 End: 06-23-2024 Patient encounter procedure MARY ZABALA [facility] Start: 04-26-2024 End: 04-26-2024 ambulatory DO Gonzalez Baires Work Phone: [facility] Work Phone: Start: 04-26-2024 End: 04-26-2024 Patient encounter procedure DO Gonzalez Baires Work Phone: [facility] [place] Work Phone: Start: 04-19-2024 End: 04-19-2024 Patient encounter procedure DO Gonzalez Baires Work Phone: [facility] [place] Work Phone: Start: 04-19-2024 End: 04-19-2024 ambulatory DO Gonzalez Baires Work Phone: [facility] Work Phone: Start: 12-15-2023 End: 12-15-2023 ambulatory PA-C MARY ZABALA Facility:[facility] [place] Start: 12-15-2023 End: 12-15-2023 Patient encounter procedure MARY ZABALA [facility] Start: 12-02-2023 End: 12-02-2023 ambulatory DO Gonzalez Baires Work Phone: [facility] Work Phone: Start: 12-02-2023 End: 12-02-2023 Discharged Recurring DO Gonzalez Baires Work Phone: [facility] [address] [facility] Start: 11-20-2023 End: 11-21-2023 ambulatory GONZALEZ rocha Start: 10-26-2023 End: 10-26-2023 ambulatory PA-C MARY ZABALA Facility:[facility] [place] Start: 10-26-2023 End: 10-26-2023 Patient encounter procedure MARY ZABALA [facility] Start: 10-22-2023 End: 10-22-2023 ambulatory Gonzalez Baires Other [facility] Other Start: 10-22-2023 Office outpatient visit 25 minutes Gonzalez Baires [facility] [place] Start: 10-15-2023 End: 10-15-2023 Patient encounter procedure DO Gonzalez Baires Work Phone: [facility] Work Phone: Start: 10-15-2023 End: 10-15-2023 ambulatory DO Gonzalez Baires Work Phone: [facility] Work Phone: Start: 10-13-2023 End: 10-13-2023 ambulatory PA-C MARY ZABALA Facility:[facility] Start: 10-13-2023 End: 10-13-2023 Lab Drop off MARY ZABALA [facility] Start: 10-13-2023 End: 10-13-2023 ambulatory PA-C MARY ZABALA Facility:[facility] Start: 10-13-2023 End: 10-13-2023 Patient encounter procedure MARY ZABALA [facility] Start: 10-12-2023 End: 10-12-2023 ambulatory Gonzalez Baires Other [facility] Other Start: 10-12-2023 Telephone encounter Gonzalez Baires [facility] [place] Start: 10-08-2023 Office outpatient visit 15 minutes Gonzalez Baires [facility] [place] Start: 10-08-2023 End: 10-08-2023 ambulatory DO Gonzalez Baires Work Phone: [facility] Work Phone: Start: 10-08-2023 End: 10-08-2023 Departed Referred DO Gonzalez Baires Work Phone: [facility] [place] Work Phone: Start: 10-07-2023 Registered Recurring DO Gonzalez Baires Work Phone: [facility] [address] Start: 09-01-2023 End: 09-01-2023 ambulatory PA-C MARY E RUY Facility:[facility] [place] Start: 09-01-2023 End: 09-01-2023 Patient encounter procedure MARY ZABALA [facility] Start: 07-27-2023 End: 07-27-2023 ambulatory Vannessa Suersh Facility:[facility] Start: 07-27-2023 End: 07-27-2023 Patient encounter procedure Vannessa Del ValleAbby Kerwin [facility] Start: 07-14-2023 End: 07-14-2023 ambulatory Gonzalez Baires Facility:[facility] Start: 07-14-2023 End: 07-14-2023 Patient encounter procedure MARY ZABALA [facility] Start: 06-19-2023 End: 06-19-2023 ambulatory Gonzalez Baires Other [facility] Other Start: 06-19-2023 Telephone encounter Gonzalez Baires [facility] [place] Start: 06-12-2023 End: 06-12-2023 ambulatory Gonzalez Baires Other [facility] Other Start: 06-12-2023 Telephone encounter Gonzalez Baires [facility] [place] Start: 06-10-2023 Office outpatient visit 15 minutes Gonzalez Baires [facility] [place] Start: 06-10-2023 End: 06-10-2023 ambulatory DO Gonzalez Baires Work Phone: [facility] Work Phone: Start: 06-10-2023 End: 06-10-2023 Departed Referred DO Gonzalez Baires Work Phone: [facility] [place] Work Phone: Start: 05-21-2023 End: 05-21-2023 Patient encounter procedure DO Gonzalez Baires Work Phone: [facility] [place] Work Phone: Start: 05-21-2023 End: 05-21-2023 ambulatory DO Gonzalez Baires Work Phone: [facility] Work Phone: Start: 04-23-2023 End: 04-23-2023 ambulatory Gonzalez Baires Other [facility] Other Start: 04-23-2023 Telephone encounter Gonzalez Baires [facility] [place] Start: 04-21-2023 End: 04-21-2023 ambulatory DO Gonzalez Baires Work Phone: [facility] Work Phone: Start: 04-21-2023 End: 04-21-2023 Patient encounter procedure DO Gonzalez Baires Work Phone: [facility] [place] Work Phone: Start: 04-16-2023 End: 04-16-2023 ambulatory Gonzalez Baires Other [facility] Other Start: 04-16-2023 Office outpatient visit 25 minutes Gonzalez Baires [facility] [place] Start: 04-07-2023 End: 04-07-2023 ambulatory Gonzalez Baires Other [facility] Other Start: 04-07-2023 Telephone encounter Gonzalez Baires [facility] [place] Start: 04-06-2023 End: 04-06-2023 Patient encounter procedure DO Gonzalez Baires Work Phone: [facility] [place] Work Phone: Start: 03-31-2023 End: 03-31-2023 ambulatory Gonzalez Baires Other [facility] Other Start: 03-31-2023 Telephone encounter Gonzalez [facility] Start: 03-20-2023 End: 03-20-2023 ambulatory Gonzalez Baires Other [facility] Other Start: 03-20-2023 Telephone encounter Gonzalez Baires [facility] Start: 03-18-2023 End: 03-18-2023 ambulatory DO Gonzalez Baires Work Phone: [facility] Work Phone: Start: 03-18-2023 End: 03-18-2023 Patient encounter procedure DO Gonzalez Baires Work Phone: [facility] [place] Work Phone: Start: 01-14-2023 End: 01-14-2023 ambulatory Tyler Medina Other [employer] Other Start: 01-14-2023 Office outpatient visit 15 minutes Tyler Medina [facility] G[facility]enter[facility] Start: 01-07-2023 End: 01-07-2023 Patient encounter procedure DO Gonzalez Gonzalezjorge Work Phone: [facility] Start: 01-07-2023 End: 01-07-2023 ambulatory DO Gonzalez Baires Work Phone: [facility] Work Phone: Start: 11-26-2022 (Post-Op) Post-Op Artur Tee II [facility] Start: 11-26-2022 End: 11-26-2022 ambulatory DO Gonzalez Baires Work Phone: [facility] Work Phone: Start: 11-26-2022 End: 11-26-2022 Patient encounter procedure DO Gonzalez Baires Work Phone: [facility] Start: 10-23-2022 (Post-Op) Post-Op Artur Tee II [facility] Start: 10-23-2022 End: 10-23-2022 ambulatory Artur [place] II Other [facility] Other Start: 10-14-2022 End: 10-14-2022 ambulatory Artur [place] Other [facility] Other Start: 10-14-2022 Telephone encounter Artur [place] [facility] Start: 10-13-2022 End: 10-13-2022 Admission to same day surgery center DO Gonzalez Gonzalezjorge Work Phone: [facility] [place] Start: 10-13-2022 End: 10-13-2022 ambulatory DO Gonzalez Baires Work Phone: [facility] Work Phone: Start: 10-06-2022 End: 10-06-2022 ambulatory Artur [place] Other [facility] Other Start: 10-06-2022 Telephone encounter Artur [place] [facility] Start: 10-03-2022 (Prolonged) [employer] [facility] Services Artur [place] [facility] Start: 10-03-2022 End: 10-03-2022 ambulatory Artur [place] Other [facility] Other Start: 10-02-2022 Registered Recurring DO Gonzalez Viry Work Phone: [facility] [place] Start: 09-29-2022 End: 09-29-2022 ambulatory DO Gonzalez Baires Work Phone: [facility] Work Phone: Start: 09-29-2022 End: 09-29-2022 Patient encounter procedure DO Gonzalez Baires Work Phone: [facility] Work Phone: Start: 09-26-2022 End: 09-26-2022 ambulatory Artur [place] Other [facility] Other Start: 09-26-2022 Patient encounter procedure Artur Tee II [facility] Start: 09-11-2022 End: 09-11-2022 Patient encounter procedure DO Gonzalez Lisajorge Work Phone: [facility] [place] Work Phone: Start: 07-23-2022 End: 07-23-2022 ambulatory DO Gonzalez Baires Work Phone: [facility] Work Phone: Start: 07-23-2022 End: 07-23-2022 Patient encounter procedure DO Gonzalez Baires Work Phone: [facility] Start: 07-07-2022 End: 07-07-2022 ambulatory Gonzalez Baires Other [facility] Other Start: 07-07-2022 Telephone encounter Gonzalez Baires [facility] Start: 06-23-2022 End: 06-23-2022 ambulatory Artur [place] Other [facility] Other Start: 06-23-2022 Telephone encounter Artur [place] [facility] Start: 06-19-2022 Office outpatient visit 40 minutes Artur [place] [facility] Start: 06-19-2022 End: 06-19-2022 ambulatory DO Gonzalez Baires Work Phone: [facility] Work Phone: Start: 06-19-2022 End: 06-19-2022 Patient encounter procedure DO Gonzalez Baires Work Phone: [facility] [place] Start: 05-30-2022 End: 05-30-2022 ambulatory Gonzalez Baires Other [facility] Other Start: 05-30-2022 Telephone encounter Gonzalez Baires [facility] [place] Start: 05-06-2022 End: 05-06-2022 ambulatory Tyler Medina Other [facility] Other Start: 05-06-2022 Telephone encounter Tyler raphael [facility] Start: 03-26-2022 (Procedure) Short Rickie Leach [facility] Start: 03-26-2022 End: 03-26-2022 ambulatory Rickie Oanhdarleen Other [facility] Other Start: 03-25-2022 End: 03-25-2022 ambulatory Artur Tee II Other [facility] Other Start: 03-25-2022 Telephone encounter Artur [place] [facility] Start: 03-19-2022 End: 03-19-2022 ambulatory Artur [place] II Other [facility] Other Start: 03-19-2022 Office outpatient ne w 45 minutes Artur [place] [facility] Start: 03-05-2022 End: 03-05-2022 ambulatory Gonzalez Baires Other [facility] Other Start: 03-05-2022 Office outpatient visit 25 minutes Gonzalez Baires [facility] [place] Start: 11-11-2021 End: 11-11-2021 ambulatory Tyler Medina Other [facility] Other Start: 11-11-2021 Telephone encounter Tyler raphael [facility] Start: 09-11-2021 End: 09-11-2021 ambulatory Gonzalez Baires Other [facility] Other Start: 09-11-2021 Telephone encounter Gonzalez Baires [facility] [place] Start: 09-05-2021 End: 09-05-2021 ambulatory Gonzalez Baires Other [facility] Other Start: 09-05-2021 Telephone encounter Gonzalez Baires [facility] [place] Start: 09-04-2021 End: 09-04-2021 ambulatory Gonzalez Baires Other [facility] Other Start: 09-04-2021 Telephone encounter Gonzalez Baires [facility] [place] Start: 09-02-2021 End: 09-02-2021 ambulatory Gonzalez Baires Other [facility] Other Start: 09-02-2021 Office outpatient visit 25 minutes Gonzalez Baires [facility] Start: 02-22-2021 End: 02-23-[address] GONZALEZ BAIRES Facility: Procedures Date Procedure Procedure Detail Performing Clinician Start: 10-08-2023 Urine culture DO Gonzalez Lisajorge Work Phone: Start: 07-27-2023 Cystourethroscopy wi dilation of urethral stricture MARY ZABALA Start: 06-10-2023 Urine culture DO Gonzalez Baires Work Phone: Start: 05-21-2023 Urine culture DO Gonzalez Baires Work Phone: Start: 04-21-2023 Urine culture DO Gonzalez Baires Work Phone: Start: 04-06-2023 Urine culture DO Gonzalez Baires Work Phone: Start: 03-18-2023 Urine culture DO Gonzalez Baires Work Phone: Start: 01-07-2023 Plain X-ray of right hip DO Gonzalez Viry Work Phone: Start: 11-26-2022 Plain X-ray of right hip DO Gonzalez Viry Work Phone: Start: 10-13-2022 End: 10-13-2022 Plain X-ray of right hip DO Gonzalez Baires Work Phone: Start: 10-13-2022 Total replacement of right hip joint DO Gonzalez Baires Work Phone: Start: 09-11-2022 Urine culture DO Gonzalez Baires Work Phone: Start: 02-20-2015 Transurethral cystoscopy MARY ZABALA Start: 09-14-1996 Cystocele (disorder) ALEXANDRIA ZABALA Start: 09-14-1996 Herniation of rectum into vagina (disorder) MARY ZABALA Start: 09-14-1950 Tonsillectomy MARY ZABALA Cataract (disorder) MARY ZABALA Colonoscopy MARY ZABALA Hysterectomy MARY ZABALA Insertion of hip prosthesis MARY ZABALA Knee region structur e (body structure) MARY ZABALA Methicillin resistan t Staphylococcus aureus culture DO Gonzalez Baires Work Phone: Plan of Treatment Date Care Activity Detail Author Start: 04-19-2024 [facility] Start: 10-15-2023 [facility] Start: 10-08-2023 Bacteria identified in Urine by Culture [facility] Start: 05-21-2023 Bacteria identified in Urine by Culture [facility] Start: 04-21-2023 Bacteria identified in Urine by Culture Urine Culture [facility] Start: 03-18-2023 Bacteria identified in Urine by Culture [facility] Start: 03-18-2023 [facility] Start: 10-13-2022 End: 10-13-2022 [facility] Start: 10-13-2022 Physical therapy procedure [facility] Bacteria identified in Urine by Culture [facility] Comprehensive metabo lic 2000 panel - Serum or Plasma [facility] Cotinine [Mass/volum e] in Serum or Plasma [facility] Work Phone: Glucose measurement estimated from glycated hemoglobin [facility] Work Phone: Glucose measurement estimated from glycated hemoglobin [facility] Glucose measurement estimated from glycated hemoglobin [facility] Glucose measurement estimated from glycated hemoglobin [facility] Hemoglobin A1c/Hemoglobin.total in Blood [facility] Work Phone: Methicillin resistan t Staphylococcus aureus [Presence] in Unspecified specimen by Organism specific culture [facility] Work Phone: MRSA Culture MRSA Culture [facility] Nicotine [Mass/volum e] in Serum or Plasma [facility] Work Phone: [facility] Immunizations Immunization Date Immunization Notes Care Provider Fa cility 06-17-2023 Fluzone QIV High-Dos e 65YR+ DO Gonzalez Baires Work Phone: [facility] 06-17-2023 influenza virus vacc ine, unspecified formulation MARYARABELLA RAZARY [facility] 06-17-2023 Flu Shot - Documenta tion Purposes Only Gonzalez Baires Other [facility] 07-15-2022 Influenza vaccine, quadrivalent, adjuvanted DO Gonzalez Baires Work Phone: [facility] 07-15-2022 influenza virus vacc ine, unspecified formulation MARY ZABALA [facility] 08-26-2021 COVID-19 Vaccine Pfi zer - Documentation Purposes Only Gonzalez Baires Other [facility] 05-29-2021 Fluzone QIV High-Dos e 65YR+ DO Gonzalez Baires Work Phone: [facility] 05-29-2021 influenza virus vacc ine, unspecified formulation MARY ZABALA [facility] 05-29-2021 influenza, seasonal, injectable Gonzalez Baires Other [facility] 10-30-2020 COVID-19 mRNA, Comir sameera (Pfizer) DO Gonzalez Baires Work Phone: [facility] 10-29-2020 COVID-19 Vaccine Pfi zer - Documentation Purposes Only Gonzalez Viry Other [facility] Comment on above: Result Comment: 2022: [id number] 10-08-2020 COVID-19 Vaccine Pfi zer - Documentation Purposes Only Ognzalez Viry Other [facility] Comment on above: Result Comment: 2022: [id number] 05-09-2020 influenza virus vacc ine, unspecified formulation MARY ZABALA [facility] 05-09-2020 influenza, high dose seasonal, preservative-free DO Gonzalez Baires Work Phone: [facility] 05-09-2020 pneumococcal polysaccharide vaccine, 23 valent Gonzalez Baires Other [facility] 05-09-2020 influenza, seasonal, injectable Gonzalez Baires Other [facility] 05-11-2019 zoster vaccine recombinant MARY ZABALA [facility] 04-28-2019 influenza virus vacc ine, unspecified formulation MARY ZABALA [facility] 04-28-2019 influenza, seasonal, injectable Gonzalez Gonzalezjorge Other [facility] 03-09-2019 pneumococcal conjuga te vaccine, 13 valent MARY RUY [facility] 03-09-2019 zoster vaccine recombinant MARY ZABALA [facility] 04-30-2018 influenza, seasonal, injectable Gonzalez Baires Other [facility] 04-29-2018 influenza virus vacc ine, unspecified formulation MARY ZABALA [facility] 04-29-2018 influenza, injectabl e, quadrivalent, preservative free DO Gonzalez Baires Work Phone: [facility] 08-19-2017 influenza virus vacc ine, unspecified formulation MARY ZABALA [facility] 08-19-2017 influenza, injectabl e, quadrivalent, preservative free DO Gonzalez Baires Work Phone: [facility] 08-19-2017 influenza, seasonal, injectable Gonzalez Girjorge Other [facility] 08-04-2016 influenza, seasonal, injectable Gonzalez Girvin Other [facility] 08-01-2016 influenza, seasonal, injectable Gonzalez Girjorge Other [facility] 06-25-2015 influenza virus vacc ine, unspecified formulation MARY ZABALA [facility] 06-25-2015 influenza, high dose seasonal, preservative-free DO Gonzalez Baires Work Phone: [facility] 06-25-2015 influenza, seasonal, injectable Gonzalez Girjorge Other [facility] Payers Date Payer Category Payer Self-pay [id number] 1958 Medicare [id number] 1958 Unknown [id number] 1940 Unknown [id number] 2.16.84 [id number] 1941 Unknown [id number] 2.16.8 [id number] 1941 Unknown [id number] 2.16.8 [id number] 1941 Unknown [id number] 2.16.8 40.1.643980.3.579.2.727 1941 Unknown [id number] 2.16.8 40.1.539854.3.579.2.727 1941 Unknown [id number] 2.16.8 40.1.256463.3.579.2.727 1941 Unknown [id number] 2.16.8 40.1.457817.3.579.2.727 1941 Unknown [id number] 2.16.8 40.1.350500.3.579.2.727 1941 Unknown [id number] 2.16.8 40.1.868396.3.579.2.727 1941 Unknown [id number] 2.16.8 40.1.149437.3.579.2.727 Unknown Joselin BC/BS [id number] Unknown [id number] 2.16.8 40.1.959551.3.579.2.531 Unknown [id number] 2.16.8 40.1.110132.3.579.2.531 Unknown [id number] 2.16.8 40.1.836250.3.579.2.531 Unknown [id number] 2.16.8 40.1.828229.3.579.2.531 Unknown [id number] 2.16.8 40.1.234515.3.579.2.531 Unknown [id number] 2.16.8 [id number] Social History Date Type Detail Facility Unknown if ever smoked wywy Other Sex Assigned At [facility] Start: 04-23-2021 End: 06-23-2024 Tobacco smoking status NHIS Never smoked tobacco (finding) [facility] Start: 1940 Sex Assigned At Female F [facility] Tobacco smoking status No Smokin g Status Entered [facility] Tobacco smoking status Never [facility] Medical Equipment Procedure Code Equipment Code Equipment Origin al Text Equipment Identifier Dates Arthroplasty, hip, total, anterior approach Acetabular shell [id number] FDA Start: 10-13-2022 Arthroplasty, hip, total, anterior approach Orthopaedic bone screw, non-bioabsorbable, sterile ()[id number] FDA Start: 10-13-2022 Arthroplasty, hip, total, anterior approach Orthopaedic bone screw, non-bioabsorbable, sterile [id number] FDA Start: 10-13-2022 Arthroplasty, hip, total, anterior approach Ceramic femoral head prosthesis ()[id number] FDA Start: 10-13-2022 Arthroplasty, hip, total, anterior approach Coated hip femur prosthesis, modular ()[id number] FDA Start: 10-13-2022 Arthroplasty, hip, total, anterior approach Non-constrained polyethylene acetabular liner ()[id number] FDA Start: 10-13-2022 Goals Date Patient Goal Desired Activity /State Functional Status Date Assessment Result Facility 06-23-2024 Functional Status N/A [facility] 12-15-2023 Functional Status N/A [facility] 10-13-2023 Functional Status N/A [facility] 09-01-2023 Functional Status N/A [facility] 07-27-2023 Functional Status N/A [facility] 07-17-2023 Functional Status [facility] 07-14-2023 Functional Status N/A [facility] Clinical Notes 09-02-2021 to 06-23-2024 Note Date & Type Note Facility 06-23-2024 Hospital Discharg e instructions Patient Education 06/23/2024 09:42:34 Kidney Stones, [facility] Kidney Stones Kidney stones are rock-like masses that form inside of the kidneys. Kidneys are organs that make pee (urine). A kidney stone may move into other parts of the urinary tract, including: The tubes that connect the kidneys to the bladder (ureters). The bladder. The tube that carries urine out of the body (urethra). Kidney stones can cause very bad pain and can block the flow of pee. The stone usually leaves your body through your pee. A doctor may need to take out the stone. What are the causes? Kidney stones may be caused by: Too much calcium in the body. This may be caused by too much parathyroid hormone in the blood. Uric acid crystals in the bladder. The body makes uric acid when you eat certain foods. Narrowing of one or both of the ureters. A kidney blockage that you were born with. Past surgery on the kidney or the ureters. What increases the risk? You are more likely to develop this condition if: You have had a kidney stone in the past. Other people in your family have had kidney stones. You do not drink enough water. You eat a diet that is high in protein, salt (sodium), or sugar. You are very overweight (obese). What are the signs or symptoms? Symptoms of a kidney stone may include: Pain in the side of the belly, right below the ribs. Pain usually spreads to the groin. Needing to pee often or right away. Pain when peeing. Blood in your pee. Feeling like you may vomit (nauseous). Vomiting. Fever and chills. How is this treated? Treatment depends on the size, location, and makeup of the kidney stones. The stones will often pass out of the body when you pee. You may need to: Drink more fluid to help pass the stone. ?In some cases, you may be given fluids through an IV tube at the hospital. Take medicine for pain. Change your diet to help keep kidney stones from coming back. Sometimes, you may need: A procedure to break up kidney stones using a beam of light (laser) or shock waves. Surgery to remove the kidney stones. Follow these instructions at home: Medicines Take xgkt-mcs-rodypdt and prescription medicines only as told by your doctor. Ask your doctor if the medicine prescribed to you requires you to avoid driving or using machinery. Eating and drinking Drink enough fluid to keep your pee pale yellow. ?You may be told to drink at least 8 10 glasses of water each day. This will help you pass the stone. If told by your doctor, change your diet. You may be told to: ?Limit how much salt you eat. ?Eat more fruits and vegetables. ?Limit how much meat, poultry, fish, and eggs you eat. Follow instructions from your doctor about what you may eat and drink. General instructions Collect pee samples as told by your doctor. You may need to collect a pee sample: ?24 hours after a stone comes out. ?8 12 weeks after a stone comes out, and every 6 12 months after that. Strain your pee every time you pee. Use the strainer that your doctor recommends. Do not throw out the stone. Keep it so that it can be tested by your doctor. Keep all follow-up visits. You may need X-rays and ultrasounds to make sure the stone has come out. How is this prevented? To prevent another kidney stone: Drink enough fluid to keep your pee pale yellow. This is the best way to prevent kidney stones. Eat healthy foods. Avoid certain foods as told by your doctor. You may be told to eat less protein. Stay at a healthy weight. Where to find more information National Kidney Foundation (NKF): kidney.org Urology Care Foundation (UCF): urologyhealth.org Contact a doctor if: You have pain that gets worse or does not get better with medicine. Get help right away if: You have a fever or chills. You get very bad pain. You get new pain in your belly. You faint. You cannot pee. This information is not intended to replace advice given to you by your health care provider. Make sure you discuss any questions you have with your health care provider. Document Revised: 04/24/2023 Document Reviewed: 04/24/2023 [employer] Patient Education 2023 [employer]. Follow Up Care 12/15/2023 15:01:29 With:RUY FRANCOIS, MARY Gwendolyn, URL Address: [address] [place] [address] Business (1) When:6 months [facility] 06-23-2024 Note Patient Education Urology Kidney Stones Kidney stones are rock-like masses that form inside of the kidneys. Kidneys are organs that make pee (urine). A kidney stone may move into other parts of the urinary tract, including: ? The tubes that connect the kidneys to the bladder (ureters). ? The bladder. ? The tube that carries urine out of the body (urethra). Kidney stones can cause very bad pain and can block the flow of pee. The stone usually leaves your body through your pee. A doctor may need to take out the stone. What are the causes? Kidney stones may be caused by: ? Too much calcium in the body. This may be caused by too much parathyroid hormone in the blood. ? Uric acid crystals in the bladder. The body makes uric acid when you eat certain foods. ? Narrowing of one or both of the ureters. ? A kidney blockage that you were born with. ? Past surgery on the kidney or the ureters. What increases the risk? You are more likely to develop this condition if: ? You have had a kidney stone in the past. ? Other people in your family have had kidney stones. ? You do not drink enough water. ? You eat a diet that is high in protein, salt (sodium), or sugar. ? You are very overweight (obese). What are the signs or symptoms? Symptoms of a kidney stone may include: ? Pain in the side of the belly, right below the ribs. Pain usually spreads to the groin. ? Needing to pee often or right away. ? Pain when peeing. ? Blood in your pee. ? Feeling like you may vomit (nauseous). ? Vomiting. ? Fever and chills. How is this treated? Treatment depends on the size, location, and makeup of the kidney stones. The stones will often pass out of the body when you pee. You may need to: ? Drink more fluid to help pass the stone. ? In some cases, you may be given fluids through an IV tube at the hospital. ? Take medicine for pain. ? Change your diet to help keep kidney stones from coming back. Sometimes, you may need: ? A procedure to break up kidney stones using a beam of light (laser) or shock waves. ? Surgery to remove the kidney stones. Follow these instructions at home: Medicines ? Take pydq-pby-szqjwgu and prescription medicines only as told by your doctor. ? Ask your doctor if the medicine prescribed to you requires you to avoid driving or using machinery. Eating and drinking ? Drink enough fluid to keep your pee pale yellow. ? You may be told to drink at least 8?10 glasses of water each day. This will help you pass the stone. ? If told by your doctor, change your diet. You may be told to: ? Limit how much salt you eat. ? Eat more fruits and vegetables. ? Limit how much meat, poultry, fish, and eggs you eat. ? Follow instructions from your doctor about what you may eat and drink. General instructions ? Collect pee samples as told by your doctor. You may need to collect a pee sample: ? 24 hours after a stone comes out. ? 8?12 weeks after a stone comes out, and every 6?12 months after that. ? Strain your pee every time you pee. Use the strainer that your doctor recommends. ? Do not throw out the stone. Keep it so that it can be tested by your doctor. ? Keep all follow-up visits. You may need X-rays and ultrasounds to make sure the stone has come out. How is this prevented? To prevent another kidney stone: ? Drink enough fluid to keep your pee pale yellow. This is the best way to prevent kidney stones. ? Eat healthy foods. ? Avoid certain foods as told by your doctor. You may be told to eat less protein. ? Stay at a healthy weight. Where to find more information ? National Kidney Foundation (NKF): kidney.org ? Urology Care Foundation (UCF): urologyhealth.org Contact a doctor if: ? You have pain that gets worse or does not get better with medicine. Get help right away if: ? You have a fever or chills. ? You get very bad pain. ? You get new pain in your belly. ? You faint. ? You cannot pee. This information is not intended to replace advice given to you by your health care provider. Make sure you discuss any questions you have with your health care provider. Document Revised: 04/24/2023 Document Reviewed: 04/24/2023 Elsevier Patient Education ? 2023 [employer] [facility] 12-15-2023 Hospital Discharg e instructions Patient Education 12/15/2023 14:45:17 Antibiotic Medicine, Adult Antibiotic Medicine, Adult Antibiotic medicines are used to treat infections caused by bacteria, such as strep throat and urinary tract infection (UTI). Antibiotic medicines will not work for colds, the flu (influenza), or other illnesses caused by viruses. These medicines work by killing the bacteria that are making you sick. Antibiotics can also have serious side effects. It is important that you take antibiotic medicines safely and only when needed. When do I need to take antibiotics? You may need antibiotics for: UTI. Strep throat. Bacterial sinusitis. Meningitis. This infection affects the spinal cord and brain. Serious lung infection. You may start antibiotics while your health care provider waits for your results from any tests for possible infection. Tests may include a culture of your throat, urine, blood, or mucus. Your health care provider may change or stop your antibiotic depending on your test results. When are antibiotics not needed? You do not need antibiotics for most common illnesses. These illnesses may be caused by a virus, not by bacteria. You do not need antibiotics for: The common cold. Influenza. Sore throat. Discolored mucus. Bronchitis. Antibiotics are not always needed for all infections caused by bacteria. Many of these infections clear up without antibiotic treatment. Do not ask for or take antibiotics when they are not necessary. How long should I take my antibiotic? You must take the entire prescription. Continue to take your antibiotic for as long as told by your health care provider. Do not stop taking it even if you start to feel better. If you stop taking it too soon: You may start to feel sick again. Your infection may become harder to treat. Each course of antibiotics needs a different amount of time to work. Some antibiotic courses last only a few days. Some last about a week to 10 days. In some cases, you may need to take antibiotics for a few weeks to completely treat your infection. What if I miss a dose? Try not to miss any doses of medicine. If you miss a dose, call your health care provider or pharmacist for advice. Sometimes it is okay to take the missed dose as soon as possible. Do not take double or extra doses. What are the risks of taking antibiotics? Antibiotics can cause: Allergic reactions. Nausea. Yeast infections. Liver problems. Antibiotics can also cause an infection called Clostridioides difficile (C. difficile or C. diff), which causes severe diarrhea. This infection happens when the antibiotics kill the healthy bacteria in your intestines. This allows C. diff to grow. C. diff needs to be treated right away. Let your health care provider know if: You develop diarrhea while taking an antibiotic. You develop diarrhea after you stop taking an antibiotic. C. diff infection can start weeks after stopping the antibiotic. Taking an antibiotic also puts you at risk for getting sick in the future with bacteria that do not respond to medicine (antibiotic-resistant infection). Antibiotics can cause bacteria to change so that if the antibiotic is taken again, the medicine cannot kill the bacteria. These infections can be more serious and, in some cases, life-threatening. Do antibiotics affect control? control pills may not work while you are on antibiotics. If you are taking control pills, continue taking them as usual and use a second form of control, such as a condom, to avoid unwanted . Continue using the second form of control until your health care provider says you can stop. What else should I know about taking antibiotics? It is important for you to take antibiotics exactly as told. Make sure to: Take the correct amount of medicine at the same time each day. Ask your health care provider: ?How long to wait between doses. ?If your antibiotic should be taken with food. ?If there are any foods, drinks, or medicines that you should avoid while taking your antibiotics. ?If there are any side effects you should be aware of. Use only the antibiotics prescribed for you by your health care provider. Do not use antibiotics prescribed for someone else. Drink a large glass of water when taking your antibiotics. Drink enough fluid to keep your urine pale yellow. Ask your pharmacist for a syringe, cup, or spoon that properly measures your antibiotics. Throw away any leftover medicine. Follow these instructions at home: Take urzw-vqh-jewfswn and prescription medicines as told by your health care provider. Return to your normal activities as told by your health care provider. Ask your health care provider what activities are safe for you. Keep all follow-up visits as told by your health care provider. This is important. Contact a health care provider if: Your symptoms get worse. You have new joint pain or muscle aches that begin after starting your antibiotic. You have side effects from your antibiotic, such as: ?Stomach pain. ?Diarrhea. ?Nausea. ?White patches in your mouth or throat. Get help right away if: You have signs of a severe allergic reaction to antibiotics. If you have any of these signs, stop taking the antibiotic right away. Signs may include: ?Hives. These are raised, itchy, red bumps on your skin. ?Skin rash. ?Trouble breathing. ?Noisy breathing (wheezing). ?Swelling anywhere on your body. ?Feeling dizzy. ?Vomiting. You have signs of liver problems, such as: ?Dark or blood-colored urine. ?Yellow color to your skin. ?Bruising or bleeding easily. You have severe diarrhea, and you have cramps in your abdomen. You have a severe headache. These symptoms may represent a serious problem that is an emergency. Do not wait to see if the symptoms will go away. Get medical help right away. Call your local emergency services (911 in the [place] Do not drive yourself to the hospital. Summary Antibiotic medicines are used to treat infections caused by bacteria. It is important that you take antibiotic medicines safely and only when needed. Your health care provider may change or stop your antibiotic depending on your results from certain tests. Finish all antibiotic medicine even when you start to feel better. This information is not intended to replace advice given to you by your health care provider. Make sure you discuss any questions you have with your health care provider. Document Revised: 10/15/2020 Document Reviewed: 06/19/2020 [employer] Patient Education 2022 [employer] Follow Up Care 10/13/2023 11:49:44 With:RUY FRANCOIS, MARY Snow, URL Address: [address] [place] [address] When:Within 6 Month(s) [facility] 10-22-2023 Evaluation note Encounter Date Diagnosis Assessment Notes Oct, Hyperlipidemia (ICD-10 - E78.5) Discussed cholesterol results with patient today. Total is 161. HDL is 56. LDL is 84. Triglycerides are 103. VLDL is 20. She is encouraged to continue to monitor her intake of carbs and sugars. Stay active as tolerated. Continue with above medications as directed. Oct, Hyperglycemia (ICD-10 - R73.9) Discussed blood sugar results with patient today. Glucose is 87. HgA1C is down from 5.7 to 5.5 which is excellent. She is encouraged to continue to monitor her intake of carbs and sugars. Stay active as tolerated. She voices that she has her dessert at noon and will have a small piece, she will not deny herself of sweets. She only has a small amount to eat at supper time, it may be a piece of meat and cheese and that is all but it is very small. She should continue with what she is doing as it is working well. Eating her sweets as early in the day as possible is the best thing she can do so she has time to burn this off versus eating it at night when she would be going to bed. Oct, Asthma (ICD-10 - J45.909) Continue with above medication as needed. She voices that when she started Zyrtec she did not have any further Asthma symptoms. I did advise her that if she ever feels that Zyrtec is not working then she should switch this to Xyxal, sometimes the body needs a break from one antihistamine for a short time and then she can go back to taking it. She can work in y[employer] places without any trouble. Oct, Arthritis (ICD-10 - M19.90) Continue with above medication as directed. Oct, Cystitis (ICD-10 - N30.90) She did see Mary Zabala PA-C for evaluation and once she has finished the Levaquin she will start Cephalexin 250 MG daily for three months (10-25-23). She was told that if she needed to provide a sample she could go to their office and provide one but would still need to have an appointment. 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 Her BMI is 28. We discussed her weight today. She would like to weigh 135-140 and this would be a good weight for her and would still allow her to be able to fight off infections if needed. She admits she knows what to do but it is difficult to do it. Oct, Schneider's esophagus (ICD-10 - K22.70) Continue with above medication daily as directed. Oct, Constipation (ICD-10 - K59.00) Continue with above medication as directed. Oct, Anxiety (ICD-10 - F41.9) She does continue with above medication daily as directed. Oct, Vitamin D deficiency (ICD-10 - E55.9) Oct, Breast cancer screening (ICD-10 - Z12.31) She is willing to have a mammogram, an order was provided. [facility] Other 01-30-2024 Hospital Discharge instructions Patient Education 10/13/2023 11:43:45 Antibiotic Medicine, Adult Antibiotic Medicine, Adult Antibiotic medicines are used to treat infections caused by bacteria, such as strep throat and urinary tract infection (UTI). Antibiotic medicines will not work for colds, the flu (influenza), or other illnesses caused by viruses. These medicines work by killing the bacteria that are making you sick. Antibiotics can also have serious side effects. It is important that you take antibiotic medicines safely and only when needed. When do I need to take antibiotics? You may need antibiotics for: UTI. Strep throat. Bacterial sinusitis. Meningitis. This infection affects the spinal cord and brain. Serious lung infection. You may start antibiotics while your health care provider waits for your results from any tests forpossible infection. Tests may include a culture of your throat, urine, blood, or mucus. Your healthcare provider may change or stop your antibiotic depending on your test results. When are antibiotics not needed? You do not need antibiotics for most common illnesses. These illnesses may be caused by a virus, not by bacteria. You do not need antibiotics for: The common cold. Influenza. Sore throat. Discolored mucus. Bronchitis. Antibiotics are not always needed for all infections caused by bacteria. Many of these infections clear up without antibiotic treatment. Do not ask for or take antibiotics when they are not necessary. How long should I take my antibiotic? You must take the entire prescription. Continue to take your antibiotic for as long as told by yourhealth care provider. Do not stop taking it even if you start to feel better. If you stop taking ittoo soon: You may start to feel sick again. Your infection may become harder to treat. Each course of antibiotics needs a different amount of time to work. Some antibiotic courses last only a few days. Some last about a week to 10 days. In some cases, you may need to take antibiotics for a few weeks to completely treat your infection. What if I miss a dose? Try not to miss any doses of medicine. If you miss a dose, call your health care provider or pharmacist for advice. Sometimes it is okay to take the missed dose as soon as possible. Do not take double or extra doses. What are the risks of taking antibiotics? Antibiotics can cause: Allergic reactions. Nausea. Yeast infections. Liver problems. Antibiotics can also cause an infection called Clostridioides difficile (C. difficile or C. diff), which causes severe diarrhea. This infection happens when the antibiotics kill the healthy bacteria in your intestines. This allows C. diff to grow. C. diff needs to be treated right away. Let your health care provider know if: You develop diarrhea while taking an antibiotic. You develop diarrhea after you stop taking an antibiotic. C. diff infection can start weeks after stopping the antibiotic. Taking an antibiotic also puts you at risk for getting sick in the future with bacteria that do notrespond to medicine (antibiotic-resistant infection). Antibiotics can cause bacteria to change so that if the antibiotic is taken again, the medicine cannot kill the bacteria. These infections can bemore serious and, in some cases, life-threatening. Do antibiotics affect control? control pills may not work while you are on antibiotics. If you are taking control pills, continue taking them as usual and use a second form of control, such as a condom, to avoid unwanted . Continue using the second form of control until your health care provider says you can stop. What else should I know about taking antibiotics? It is important for you to take antibiotics exactly as told. Make sure to: Take the correct amount of medicine at the same time each day. Ask your health care provider: ?How long to wait between doses. ?If your antibiotic should be taken with food. ?If there are any foods, drinks, or medicines that you should avoid while taking your antibiotics. ?If there are any side effects you should be aware of. Use only the antibiotics prescribed for you by your health care provider. Do not use antibiotics prescribed for someone else. Drink a large glass of water when taking your antibiotics. Drink enough fluid to keep your urine pale yellow. Ask your pharmacist for a syringe, cup, or spoon that properly measures your antibiotics. Throw away any leftover medicine. Follow these instructions at home: Take rfpc-gaq-bvgwvsa and prescription medicines as told by your health care provider. Return to your normal activities as told by your health care provider. Ask your health care provider what activities are safe for you. Keep all follow-up visits as told by your health care provider. This is important. Contact a health care provider if: Your symptoms get worse. You have new joint pain or muscle aches that begin after starting your antibiotic. You have side effects from your antibiotic, such as: ?Stomach pain. ?Diarrhea. ?Nausea. ?White patches in your mouth or throat. Get help right away if: You have signs of a severe allergic reaction to antibiotics. If you have any of these signs, stop taking the antibiotic right away. Signs may include: ?Hives. These are raised, itchy, red bumps on your skin. ?Skin rash. ?Trouble breathing. ?Noisy breathing (wheezing). ?Swelling anywhere on your body. ?Feeling dizzy. ?Vomiting. You have signs of liver problems, such as: ?Dark or blood-colored urine. ?Yellow color to your skin. ?Bruising or bleeding easily. You have severe diarrhea, and you have cramps in your abdomen. You have a severe headache. These symptoms may represent a serious problem that is an emergency. Do not wait to see if the symptoms will go away. Get medical help right away. Call your local emergency services (911 in the [place] Do not drive yourself to the hospital. Summary Antibiotic medicines are used to treat infections caused by bacteria. It is important that you takeantibiotic medicines safely and only when needed. Your health care provider may change or stop your antibiotic depending on your results from certaintests. Finish all antibiotic medicine even when you start to feel better. This information is not intended to replace advice given to you by your health care provider. Make sure you discuss any questions you have with your health care provider. Document Revised: 10/15/2020 Document Reviewed: 06/19/2020 [employer] Patient Education 2022 [employer]. Follow Up Care 09/01/2023 11:37:13 With:RUY FRANCOIS, MARY Snow, URL Address: [address] [place] [place] [address] When: Unknown Comments:f/u scheduled 12/15/23 [facility] 01-25-2024 Evaluation note* Encounter Date Diagnosis Assessment Notes Treatment Notes Treatment Clinical Notes Sep, Cystitis (ICD-10 - N30.90) She voiced that she had a cystoscopy done by Dr. Suresh in July (2022) after seeing the PA at the urology office. She did start pelvic floor physical therapy and has been attending this as scheduled. She told her therapist on 10/07/23 that she felt she was getting another urine infection and they encouraged her to contact the urologist, when she contacted their office she was told that she could not be seen until December (2023). She did ask for an order so that she could provide a urine sample but was told that this was unable to be done. I did independently review their office visit note from June (2022) when she was seen by Mary Zhu and advised her that her note stated that patient was to contact their office with all future UTI symptoms so they could monitor urine culture results, treat appropriately and monitor the frequency of her infections. I will treat her with Cephalexin today and send the results of her urinalysis and culture to the urologist office and see if they would like to follow up with her and she can contact them for follow up. She is in agreement to this plan. If she develops a fever, has severe back pain or vomits she is to go to the ER for evaluation. Guidance was given on how to take the medication. Stay well hydrated with plenty of water daily. Sep, Other This documentat ion is being amended on 10/15/23 due to an internal data corruption event that occurred on 10/08/23. This data corruption event was NOT the result of any breach, fraud, or malicious third constitution party actors and no personal patient information was compromised. [facility] Other 12-19-2023 Hospital Discharge instructions Patient Education 09/01/2023 11:32:17 Overactive Bladder, Adult Overactive Bladder, Adult Overactive bladder is a condition in which a person has a sudden and frequent need to urinate. A person might also leak urine if he or she cannot get to the bathroom fast enough (urinary incontinence). Sometimes, symptoms can interfere with work or social activities. What are the causes? Overactive bladder is associated with poor nerve signals between your bladder and your brain. Your bladder may get the signal to empty before it is full. You may also have very sensitive muscles thatmake your bladder squeeze too soon. This condition may also be caused by other factors, such as: Medical conditions: ?Urinary tract infection. ?Infection of nearby tissues. ?Prostate enlargement. ?Bladder stones, inflammation, or tumors. ?Diabetes. ?Muscle or nerve weakness, especially from these conditions: ?A spinal cord injury. ?Stroke. ?Multiple sclerosis. ?Parkinson's disease. Other causes: ?Surgery on the uterus or urethra. ?Drinking too much caffeine or alcohol. ?Certain medicines, especially those that eliminate extra fluid in the body (diuretics). ?Constipation. What increases the risk? You may be at greater risk for overactive bladder if you: Are an older adult. Smoke. Are going through menopause. Have prostate problems. Have a neurological disease, such as stroke, dementia, Parkinson's disease, or multiple sclerosis (MS). Eat or drink alcohol, spicy food, caffeine, and other things that irritate the bladder. Are overweight or obese. What are the signs or symptoms? Symptoms of this condition include a sudden, strong urge to urinate. Other symptoms include: Leaking urine. Urinating 8 or more times a day. Waking up to urinate 2 or more times overnight. How is this diagnosed? This condition may be diagnosed based on: Your symptoms and medical history. A physical exam. Blood or urine tests to check for possible causes, such as infection. You may also need to see a health care provider who specializes in urinary tract problems. This is called a urologist. How is this treated? Treatment for overactive bladder depends on the cause of your condition and whether it is mild or severe. Treatment may include: Bladder training, such as: ?Learning to control the urge to urinate by following a schedule to urinate at regular intervals. ?Doing Kegel exercises to strengthen the pelvic floor muscles that support your bladder. Special devices, such as: ?Biofeedback. This uses sensors to help you become aware of your body's signals. ?Electrical stimulation. This uses electrodes placed inside the body (implanted) or outside the body. These electrodes send gentle pulses of electricity to strengthen the nerves or muscles that control the bladder. ?Women may use a plastic device, called a pessary, that fits into the vagina and supports the bladder. Medicines, such as: ?Antibiotics to treat bladder infection. ?Antispasmodics to stop the bladder from releasing urine at the wrong time. ?Tricyclic antidepressants to relax bladder muscles. ?Injections of botulinum toxin type A directly into the bladder tissue to relax bladder muscles. Surgery, such as: ?A device may be implanted to help manage the nerve signals that control urination. ?An electrode may be implanted to stimulate electrical signals in the bladder. ?A procedure may be done to change the shape of the bladder. This is done only in very severe cases. Follow these instructions at home: Eating and drinking Make diet or lifestyle changes recommended by your health care provider. These may include: ?Drinking fluids throughout the day and not only with meals. ?Cutting down on caffeine or alcohol. ?Eating a healthy and balanced diet to prevent constipation. This may include: ?Choosing foods that are high in fiber, such as beans, whole grains, and fresh fruits and vegetables. ?Limiting foods that are high in fat and processed sugars, such as fried and sweet foods. Lifestyle Lose weight if needed. Do not use any products that contain nicotine or tobacco. These include cigarettes, chewing tobacco, and vaping devices, such as e-cigarettes. If you need help quitting, ask your health care provider. General instructions Take pbfo-isi-pcuthgb and prescription medicines only as told by your health care provider. If you were prescribed an antibiotic medicine, take it as told by your health care provider. Do notstop taking the antibiotic even if you start to feel better. Use any implants or pessary as told by your health care provider. If needed, wear pads to absorb urine leakage. Keep a log to track how much and when you drink, and when you need to urinate. This will help your health care provider monitor your condition. Keep all follow-up visits. This is important. Contact a health care provider if: You have a fever or chills. Your symptoms do not get better with treatment. Your pain and discomfort get worse. You have more frequent urges to urinate. Get help right away if: You are not able to control your bladder. Summary Overactive bladder refers to a condition in which a person has a sudden and frequent need to urinate. Several conditions may lead to an overactive bladder. Treatment for overactive bladder depends on the cause and severity of your condition. Making lifestyle changes, doing Kegel exercises, keeping a log, and taking medicines can help with this condition. This information is not intended to replace advice given to you by your health care provider. Make sure you discuss any questions you have with your health care provider. Document Revised: 05/20/2021 Document Reviewed: 05/20/2021 [employer] Patient Education 2022 [employer]. Follow Up Care 07/27/2023 10:40:28 With:RUY FRANCOIS, MARY Snow, URL Address: [address] [place] [address]. [place] [address] [phone] When: Unknown Comments:f/u in 3-4 mos [facility] 11-13-2023 Evaluation + Plan noteExtracted from: Title: - Clinic HOP Note Author:Kerwin PUGH, Vannessa Del Valle. Date:07/27/23 Impression and Plan Assessment and Plan: Diagnosis: Vaginal atrophy (LVZ43-CF N95.2, Discharge, Medical), Other urethral stricture, female (WRN85-BO N35.82, Discharge, Medical), OAB (overactive bladder) (YGU71-SS N32.81, Discharge, Medical), Frequent UTI (ICD10- CM N39.0, Discharge, Medical), Constipation (TIP10-OD K59.00, Discharge, Medical), Chronic bladder pain (KVZ20-EX R39.82, Discharge, Medical). 83 yo female with a history of chronic bladder pain for 10 years and recurrent UTIs. 1. Chronic bladder pain vs IC Exacerbated by bladder irritants such as cranberry pills. Discussed pelvic floor dysfunction and tension on exam today. -Recommend pelvic floor physical therapy with biofeedback for bladder relaxation. Referral sent to [facility] per patient request. Paper education provided -Avoid bladder irritants 2. Recurrent UTIs -just started Estrace cream by VINAY 2 weeks ago. -Continue Estrace cream -Try d-mannose, probiotics, paper education provided -Bowel regimen discussed 3. Overactive bladder -contributes #1. Has not tried medications before. Discussed treatment options, patient willing to try medication. Given severe chronic constipation, favor beta 3 agonist. -Gemtesa sent to pharmacy on file. Risk and benefits discussed. Medicare number provided -PFPT as above -Bowel regimen, timed voids 4. Weak stream/urethral stricture, history of anterior/posterior repair. Mild cystocele unlikely contributing to symptoms. 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 Empiric antibiotic sent today. Follow VINAY 1 to 2 months to reevaluate symptoms -Estrace cream 5. Right nephrolithiasis -Potential on renal ultrasound. If UTIs continue after conservative management, consider CTAP without contrast for further evaluation and potential treatment. Future Appointments Appointment Date:09/01/2023 10:40:00 AM Scheduled Provider:MARY ZABALA PA-C Location:[facility] Appointment Type:URO Office Visit [facility]11-13-2023 Hospital Discharge instructions Patient Education 07/27/2023 10:37:04 EU - Cystoscopy with Urethral Dilation Discharge Instructions (CUSTOM) Cystoscopy with Urethral Dilation Voiding after the procedure: there may be some pain, urethral bleeding, burning, urgency, frequencyand blood tinged urine following the procedure. These symptoms usually resolve within 2-5 days. Drink the amount of fluid it takes to keep the urine pink to yellow or clear in color. Drinking enough water and fluids will help to ease any discomfort after your procedure. If you are having problems that seem out of the ordinary, please call. If unable to contact your physician and you feel it is an emergency, go to the nearest emergency room or call 911 Diet you may resume your normal diet. Activity you may resume your normal activities Call if you have a fever over 100 degrees Follow Up Care 07/15/2023 14:30:43 With:MARY ZABALA Address: [address] [place] [address] [place] [address] Business (1) When: Unknown Comments:Office to schedule follow up in 1-2 months [facility]11-13-2023 Note [id number] 07-27-2023 NoteCystoscopy with Urethral Dilation ? Voiding after the procedure: there may be some pain, urethral bleeding, burning, urgency, frequency and blood tinged urine following the procedure. These symptoms usually resolve within 2-5 days. Drink the amount of fluid it takes to keep the urine pink to yellow or clear in color. Drinking enough water and fluids will help to ease any discomfort after your procedure. ? If you are having problems that seem out of the ordinary, please call. ? If unable to contact your physician and you feel it is an emergency, go to the nearest emergency room or call 911 ? Diet ? you may resume your normal diet. ? Activity ? you may resume your normal activities ? Call if you have a fever over 100 degreesAt[facility] NoteChief Complaint New Pt. HPI Staff Evaluation requested by Dr Gonzalez Mccormick due to Cystitis. PVR 0mL Pt is a new pt. Last seen in our office 08/04/16 by PRW due to Frequency, Urgency, microscopic hematuria & Chronic Cystitis. Pt was on Estrace Cream & Hyophen therapy at that time. Per PCP notes, pt also saw Dr Brice in the past (2017). Hx of constipation. Recurrent UTI's for the past couple of months. Intermittent stinging and burning that can be severe so she has to lay down. Bladder becomes sore when bowels back up. Would like to discuss possible pessary. Dr Mccormick did recommend double voids to ensure bladder is emptying completely. UACS 03/18/23 *pansensitive >100k E Coli Tx'd w/Keflex 500mg TID x7days [facility] 04/06/23 *pansensitive >30k E Coli Tx'd w/Macrobid 100mg BID [id number] UACS 04/21/23 *15k mixed skin contaminants UACS 05/21/23 *pansensitive 50k E Coli Tx'd w/Keflex 500mg TID [id number] UACS 06/10/23 *pansensitive >100k E Coli Tx'd w/Macrobid BID x7days Per External Import pt was also given script for Macrobid 100mg #30 on 06/17/23 by PCP Dysuria: Pt. states having pain all the time Incomplete bladder emptying: yes Hematuria: UA shows moderate today, Pt. states she has had micro hematuria in the past. Frequency: about every 1-2 hours Urgency: occasionally Nocturia: 3x's Stream: Pt. states stream is slow and runs all over her butt. Post void dripping: Pt. states if she is having a lot of bladder pain she will have some post-void dribbling Wearing pads/ Depends: yes, one a day Urge incontinence: occasionally Stress incontinence: no Incontinence without Sensory Awareness: no Abdominal pain: Pt. states having lower abd pain/bladder pain Flank pain: no History of Present Illness staff HPI reviewed and agree. Review of Systems PHQ Score Initial Depression Screen Score: 0 no fever, chills, malaise, myalgia. no rash/lesions. no chest pain, palpitations, or SOB. no abdominal pain, nausea, vomiting. no unilateral calf swelling, redness, pain Physical Exam Vitals & Measurements HR: 62(Peripheral) RR: 16 BP: 178/90 HT: 62 in HT: 157 cm WT: 68.4 kg WT: 150.48 lb BMI: 27.75 General: nontoxic, NAD Mouth: moist mucosa Lungs: normal respiratory effort Cardio: regular rate, good distal perfusion Abdomen: nondistended, no suprapubic distention or tenderness, no CVA tenderness Neurologic: Grossly normal Skin: No rashes or suspicious lesions Assessment/Plan [place] is a 83 yo F new pt referred by Dr. Gonzalez Baires Last seen in office 08/04/[address] Potter. Would like a female MD this time. BBSQ 18. BMP 03/18/2023 - BUN 20, Cre 0.7, GFR >60 1. Chronic bladder pain (R39.82: Chronic bladder pain) chief complaint. present >10 yrs. no treatment has ever improved it continuous churn buttermaker. Azo helped for a short time but then quit working. Abx don't really change it much. pretty constant, although waxes and wanes in severity. worse with full bladder, gets mild relief after she empties. worse when constipated, gets mild relief after BM or passing gas. ?IC? Could consider trial of amitriptyline pending results of cysto/pelvic exam. 2. Frequent UTI (N39.0: Urinary tract infection, site not specified) this complaint is superimposed on #1. whereas #1 is constant, #2 sx come and go. reports typical UTI sx of burning in the urethra w urination, foul odor to urine. these sx prompt her to get urine checked and typically +cx. did require 1 hospital admission about 8 yrs ago for UTI. Feels her urethralburning improves on abx. UACS 03/18/23 - >100k E Coli, Tx'd w/Keflex 500mg TID x7days 04/06/23 - >30k E Coli, Tx'd w/Macrobid 100mg BID [id number] 04/21/23 - 15k mixed skin contaminants 05/21/23 - 50k E Coli, Tx'd w/Keflex 500mg TID [id number] 06/10/23 - >100k E Coli, Tx'd w/Macrobid BID x7days UA in office today suspicious for UTI - UA today shows moderate blood and large leuks. current UTI symptoms no no current urethral burning UTI frequency every 1-2 mos UTIs started worsening past few years Prior to that averaged UTIs about once a year pt's typical UTI sx include dysuria, pressure in lower abdomen, burning which improves with urinating, passing flatus and BMs. 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 We will check KUB & KATI to rule out stones as contributing factor to UTIs. Will call pt with results. If shows significant stone burden, pt will need appt to discuss tx options. We will start pt on topical estrogen cream. Reasoning, side effects, risks/benefits discussed. Rx sent to pharmacy. Pt advised to contact our office w all future UTI sx so we can monitor urine cx results, treat appropriately (may require extended course abx), and monitor frequency of infections. Pt advised if develops fever, severe flank (more content not included)...[facility] HospitalComment on above:Result Comment: Electronically Signed By: MARY ZABALA PA-C\.br\Date and Time Signed: 07/15/2323:10 EDT\.br\Electronically Co-Signed By: Sushma Hooks\.br\Date and Time Co-Signed: 07/14/23 10:45 [id number] Hospital Discharge instructions Patient Education 07/14/2023 10:43:22 Urinary Tract Infection, Adult Urinary Tract Infection, Adult A urinary tract infection (UTI) is an infection of any part of the urinary tract. The urinary tractincludes the kidneys, ureters, bladder, and urethra. These organs make, store, and get rid of urinein the body. An upper UTI affects the ureters and kidneys. A lower UTI affects the bladder and urethra. What are the causes? Most urinary tract infections are caused by bacteria in your genital area around your urethra, where urine leaves your body. These bacteria grow and cause inflammation of your urinary tract. What increases the risk? You are more likely to develop this condition if: You have a urinary catheter that stays in place. You are not able to control when you urinate or have a bowel movement (incontinence). You are female and you: ?Use a spermicide or diaphragm for control. ?Have low estrogen levels. ?Are . You have certain genes that increase your risk. You are sexually active. You take antibiotic medicines. You have a condition that causes your flow of urine to slow down, such as: ?An enlarged prostate, if you are male. ?Blockage in your urethra. ?A kidney stone. ?A nerve condition that affects your bladder control (neurogenic bladder). ?Not getting enough to drink, or not urinating often. You have certain medical conditions, such as: ?Diabetes. ?A weak disease-fighting system (immunesystem). ?Sickle cell disease. ?Gout. ?Spinal cord injury. What are the signs or symptoms? Symptoms of this condition include: Needing to urinate right away (urgency). Frequent urination. This may include small amounts of urine each time you urinate. Pain or burning with urination. Blood in the urine. Urine that smells bad or unusual. Trouble urinating. Cloudy urine. Vaginal discharge, if you are female. Pain in the abdomen or the lower back. You may also have: Vomiting or a decreased appetite. Confusion. Irritability or tiredness. A fever or chills. Diarrhea. The first symptom in older adults may be confusion. In some cases, they may not have any symptoms until the infection has worsened. How is this diagnosed? This condition is diagnosed based on your medical history and a physical exam. You may also have other tests, including: Urine tests. Blood tests. Tests for STIs (sexually transmitted infections). If you have had more than one UTI, a cystoscopy or imaging studies may be done to determine the cause of the infections. How is this treated? Treatment for this condition includes: Antibiotic medicine. Jspk-jsl-ozdqpqn medicines to treat discomfort. Drinking enough water to stay hydrated. If you have frequent infections or have other conditions such as a kidney stone, you may need to see a health care provider who specializes in the urinary tract (urologist). In rare cases, urinary tract infections can cause sepsis. Sepsis is a life- threatening condition that occurs when the body responds to an infection. Sepsis is treated in the hospital with IV antibiotics, fluids, and other medicines. Follow these instructions at home: Medicines Take ypca-kww-ufzbouy and prescription medicines only as told by your health care provider. If you were prescribed an antibiotic medicine, take it as told by your health care provider. Do notstop using the antibiotic even if you start to feel better. General instructions Make sure you: ?Empty your bladder often and completely. Do not hold urine for long periods of time. ?Empty your bladder after sex. ?Wipe from front to back after urinating or having a bowel movement if you are female. Use each tissue only one time when you wipe. Drink enough fluid to keep your urine pale yellow. Keep all follow-up visits. This is important. Contact a health care provider if: Your symptoms do not get better after 1 2 days. Your symptoms go away and then return. Get help right away if: You have severe pain in your back or your lower abdomen. You have a fever or chills. You have nausea or vomiting. Summary A urinary tract infection (UTI) is an infection of any part of the urinary tract, which includes the kidneys, ureters, bladder, and urethra. Most urinary tract infections are caused by bacteria in your genital area. Treatment for this condition often includes antibiotic medicines. If you were prescribed an antibiotic medicine, take it as told by your health care provider. Do notstop using the antibiotic even if you start to feel better. Keep all follow-up visits. This is important. This information is not intended to replace advice given to you by your health care provider. Make sure you discuss any questions you have with your health care provider. Document Revised: 04/12/2021 Document Reviewed: 04/12/2021 [employer] Patient Education 2022 [employer]. Follow Up Care 04/17/2023 10:50:40 With:RUY FRANCOIS, MARY Snow, URL Address: [address] [place] [phone] When: Unknown Comments:sched cysto w/ poss UD w/ [facility] [place] 10-06-2023 Evaluation note* Encounter Date Diagnosis Assessment Notes Treatment Notes Treatment Clinical Notes Jun, Hyperlipidemia (ICD-10 - E78.5) [facility] Other 09-27-2023 Evaluation note* Encounter Date Diagnosis Assessment Notes Treatment Notes Treatment Clinical Notes May, Cystitis (ICD-10 - N30.90) She voices that she does take AZO when she feels symptoms come on and did take this when these symptoms started. She finished the Keflex (generic) on 06-04-23 after having taken it for ten days. She has an appointment to see Dr. Suresh on 07-15-23. She voices that these are inconvenient, and she has learned to deal with these infections. Two days ago she ate a fresh peach and yesterday she ate a fresh pear. She voices that she is raw and the acid hurts, she tries to avoid tea and fresh fruits. I did advise her that the infection she had in late March- early April did resolve on April 23, 2023. At this time we discussed her staying on treatment longer. It is possible that she has interstitial cystitis. I want her to take Macrobid 100 MG twice a day for one week and then decrease to 50 MG daily until one week prior to seeing Dr. Suresh. She is agreeable to this plan. She had a cystocele and a rectocele in the past, and we discussed that this contributes to her bladder not being able to empty as well as it should. She will call in one week for a refill on the Macrobid 50 MG daily dose. If she develops severe back pain, vomits or has fever go to the ER. May, Other She is having h er teeth cleaned soon and will need to take Amoxicillin (4 prior to dental cleaning) I did advise her that she can take these with the Macrobid. [facility] Other 08-03-2023 Evaluation note* Encounter Date Diagnosis Assessment Notes Treatment Notes Treatment Clinical Notes Apr, Hyperlipidemia (ICD-10 - E78.5) Discussed cholesterol results with patient today. Total is 148. HDL is 58. LDL is 65. Triglycerides are 123. VLDL is 24. She was asked to continue with the same dose of Rosuvastatin. Apr, Cystitis (ICD-10 - N30.90) She voices that she saw Dr. Brice in the past who told her that she had cystitis that could last a long time and gave her a nerve pill and an allergy pill. She was told to live with it. She stopped going to see him. In 2016, she was hospitalized with pyelonephritis. She had a urine infection earlier this month and when it was rechecked her urine was still infected. She admits to having to wear pads for the last few years. She has constipation and takes MiraLax daily which can contribute to recurrent urine infections. She voices that she can have stinging and burning at times that can be severe so she will have to lay down. When her bowels back up her bladder will become sore. It is difficult for her to tell if she has an infection or not. We discussed these recurrent infections and treatment today. I did recommend that she see Dr. Brice again or see Dr. Suresh for evaluation who is a female urologist. She would be willing to see Dr. Suresh for evaluation. A referral is provided. I will order a urine to be done 3-4 days after she has finished the Macrobid. She would like to have a urine test done once a month to be sure she does not have an infection. I did provide her with an order to have a urinalysis done in May and June (anticipating that she will have seen Dr. Suresh by then) She can discuss a pessary with Dr. Suresh and other treatment options. I did recommend that she void and then stand up and then sit back down to see if she can empty more out of her bladder to be sure the entire bladder has emptied. Drinking cranberry juice or taking cranberry tablets or drinking iced tea make her urine symptoms worse. She noticed that her blood pressure was elevated when she was on Keflex (generic) we discussed that this is not a normal side effect from this medication. She admits she got bad news while on the medicine and was under stress. I suspect it was the stress or the infection itself that caused the elevated blood pressure. Apr, Hyperglycemia (ICD-10 - R73.9) Discussed blood sugar results with patient today. Glucose is 97. HgA1C is 5.7. She is encouraged to watch her intake of carbs and sugars. Stay active as tolerated. Apr, Arthritis (ICD-10 - M19.90) She does continue to use and benefit from the Celebrex. Apr, Constipation (ICD-10 - K59.00) She voices that she uses above medication daily to help with the constipation. Apr, Asthma (ICD-10 - J45.909) Continue with above medication as needed. 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 Apr, Weight gain (ICD-10 - R63.5) Her TSH is normal at 2.40. 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 Shared decision made to continue prophylactic antibiotics indefinitely. Follow-up at 1 year post-op for repeat examination and repeat x-rays. Patient instructed to call with any questions or concerns. 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 I did explain to her that she does have a slightly tilted pelvis and that she may have a slightly longer operative leg than nonoperative leg. She is requesting to put a lift into her left shoe and I explained I think that if that makes her feel better then by all means try it. Patient may continue increasing activities as tolerated. Continue taking vwye-ykn-hurkhwl anti-inflammatories as needed for assistance with swelling and pain associated with the operative extremity. Follow-up in 6 weeks for repeat examination and repeat x-rays. 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 Zipline was removed and Steri-Strips were applied. Patient may continue activities as tolerated. They are weightbearing as tolerated to the operative extremity. Patient is progressing with home health & physical therapy. We made the shared decision to continue with outpatient physical therapy. Patient instructed to continue weaning off narcotic pain medication. They can continue taking Celebrex and Tylenol as needed for assistance with swelling and pain associated with the operative extremity. Patient to continue their aspirin DVT prophylaxis as previously instructed. This includes wearing their RAMIRO hose on the operative extremity for another two weeks. Follow-up in 4.5 weeks for repeat examination and x-rays of the right hip. [facility] Other 01-23-2023 Evaluation note* Encounter Date Diagnosis Assessment Notes Treatment Notes Treatment Clinical Notes Sep, Vitamin D deficiency (ICD-10 - E55.9) [facility] Other 01-20-2023 Evaluation note* Encounter Date Diagnosis Assessment Notes Treatment Notes Treatment Clinical Notes Sep, Other Prolonged Servi katia 1. H and P date: 09/26/2022 2. Diagnosis: Right hip primary osteoarthritis 3. Counseling: Patient received counseling under history and physical 4. Coordination of care: The patient was discussed at today's total joints meeting with anesthesia, OR staff, and implant reps in an effort to coordinate the patient's care during the perioperative period. The anesthesiologist was involved in discussions regarding the patient's pain management such as regional blocks, anesthesia plans the day of surgery such as general versus spinal, as well as a final review of lab work to ensure the patient could proceed with surgery safely. The custodial operations manager was vital for surgery timing and scheduling purposes. The implant rep was also available for necessary discussions regarding preoperative templates that were created on preoperative x-rays to ensure the appropriate implants and sizes of implants would be available the day of surgery. The patient's discharge plan was also discussed and the final decision was confirmed. 5. Medication Changes: None 6. Lab Tests: The patient's screening tests including albumin levels, vitamin D levels, hemoglobin, hemoglobin A1c, cotinine serum level, and MRSA nasal cultures were all reviewed to ensure appropriate perioperative care can be performed. This included selection of perioperative antibiotics, surgical dressing, and any contact precautions that may need to be enacted. The patient's presurgical testing lab work was also reviewed. This included a CBC, BMP, UA, fructosamine, and a blood type and screen. This lab work was discussed with anesthesia during today's total joints meeting to ensure the patient could proceed with surgery safely. 7. Review of reports/records: The surgical clearance information provided by the patient's PCP and if deemed necessary, other specialists, was reviewed. Any recommendations made by these care providers were taken into consideration for the patient's perioperative and postoperative treatment plans. Prolonged services time spent: 32 minutes [facility] Other 01-13-2023 Evaluation note* Encounter Date Diagnosis Assessment Notes Treatment Notes Treatment Clinical Notes Sep, Right hip pain (ICD-10 - M25.551) Sep, Primary osteoarthritis of right hip (ICD-10 - M16.11) Sep, Other 1. Right CLARIBEL Home Medications - DVT prophylaxis: Aspirin - NSAID: Celebrex - Disposition: Same-day discharge-speaking with her and her they both feel that her will build to help her the day of surgery and the following day especially since physical therapy will be out to see her the following day after surgery Joints Meeting Checklist - [facility] - Approach/Technique: anterior, Swink bed - Implants: Avenir Complete/G7; - Anesthesia: General versus spinal - Blocks: Fascia iliaca - Preop Antibiotics: Ancef - TXA: yes-systemic - Positioning/OR Bed: supine on Swink bed - Intraop X-ray: yes - Yañez: no - Tourniquet: no - Antibiotic powder: yes-2 grams of vanc - Antibiotic cement: no - Dressing: Zipline and Prevena 14-day The patient has tried and failed all conservative treatment options to include: activity modification, physical therapy, oral anti-inflammatories , and intra-articular steroid injections. We will move forward with the definitive treatment option and schedule the patient for the above mentioned procedure. The risks involved with surgery and postoperative complications were discussed in relation to the patient's non-modifiable risk factors including but not limited to the following: Hyperlipidemia Asthma All questions were answered after discussing these increased risks. The patient voiced understanding of these increased risks and still wishes to proceed with surgery. The risks involved with surgery and postoperative complications were discussed in relation to the patient's modifiable risk factors including but not limited to the following: None identified at this time All questions were answered after discussing these increased risks. The patient voiced understanding of these increased risks and still wishes to proceed with surgery. The risks and benefits of the surgery were reviewed in depth with the patient, and all questions were answered. Informed consent was obtained. The risks and potential complications of the surgery include, but are not limited to: avascular necrosis, nonunion, nerve injury, blood vessel injury, excessive bleeding, blood transfusion, infection, persistent pain, loss of fixation, failure of the implant, deep vein thrombosis, pulmonary embolus, loss of limb, fracture, leg length discrepancy, and . Patient voiced understanding of these risks and has elected to proceed with the above surgery. 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 Right CLARIBEL - DVT prophylaxis: Aspirin - Antibiotics: Ancef - NSAID: Celebrex - Implants: Avenir Complete, G7 - Disposition: Same-day discharge versus inpatient. Her does have Parkinson's and she may prefer inpatient. We will finalize this at her history and physical. 2. Preop screening labs will be ordered including: - hemoglobin - serum albumin - 25-OH Vit D - HgbA1c - serum cotinine - MRSA nasal culture 3. Patient will obtain preop clearances including: -PCP 4. Once our office has reviewed the above labs and clearances, we will contact the patient to discuss surgery scheduling. Patient is in agreement with the above plan. 5. The risks involved with surgery and postoperative complications were discussed in relation to the patient's nonmodifiable risk factors including but not limited to the following: Hyperlipidemia Asthma All questions were answered after discussing these increased risks. The patient voiced understanding of these increased risks and still wishes to proceed with surgery. 6. The risks involved with surgery and postoperative complications were discussed in relation to the patient's modifiable risk factors including but not limited to the following: None identified at this time All questions were answered after discussing these increased risks. The patient voiced understanding of these increased risks and still wishes to proceed with surgery. The patient has tried and failed all conservative treatment options to include: oral anti-inflammatories , intra-articular steroid injections, physical therapy, and assistive devices. We will move forward with the definitive treatment option and schedule the patient for the above mentioned procedure after we have reviewed screening labs and clearances. Patient understands abnormal screening labs or absent clearances could delay their surgery. 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 We had a sonny g discussion with the patient today concerning their right hip osteoarthritis. The radiographs do show osteoarthritis of the hip. At this time the patient would like to avoid surgical intervention. We did discuss the risk and benefits of surgical versus nonoperative management. The patient would like to proceed with nonoperative management. We discussed that our options include injections, physical therapy, and the consistent use of anti-inflammatories. All 3 of these options, including their risks and benefits, were discussed at length with the patient. 2. Tylenol: Discussed taking Tylenol (acetaminophen). Recommended adjusting their dosing to 1000mg by mouth up to 3 times a day. 3. NSAIDs: Continue Celebrex 4. Physical therapy: Discussed formal physical therapy and home regimen. Patient preferred no PT at this time. 5. Injections: Discussed injections as a treatment option. We will get the patient set up with Dr Binh Leach for a right hip intra-articular corticosteroid injection. 6. Follow up 3 months after the injection 7. I did discuss with the patient that I think her knee pain is actually more related to her right hip osteoarthritis. We will treat the right hip osteoarthritis with the injection and she may also get some relief with the wywy Other 06-22-2022 Evaluation note* Encounter Date Diagnosis Assessment Notes Treatment Notes Treatment Clinical Notes Feb, Hyperlipidemia (ICD-10 - E78.5) Discussed cholesterol results with patient today. Total is 166. HDL is 66. LDL is 87. Triglycerides are 65. Readings are at goal. She is to continue with above medications daily as directed. Feb, Hip pain (ICD-10 - M25.559) right hip I did review her right hip x-ray results with her today which did show some narrowing of the joint space. She voices that the right hip continues to bother her. I did explain to her that she may benefit from an injection in the hip, I did recommend that she see an electronic data interchange specialist for evaluation. She would like to see a specialist and a referral is provided. Feb, Hyperglycemia (ICD-10 - R73.9) Discussed blood sugar results with patient today. Glucose is 84. HgA1C is up from 5.3 to 5.7 which has moved up higher than we would like to see. I did recommend that she watch her intake of carbs and sugars. Stay active as tolerated. 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 She voices that she follows with Dr. Medina every two years. Feb, Arthritis (ICD-10 - M19.90) I did review her lumbar spine x-ray results with her today. Readings show degenerative changes. She voices that her right leg feels tight and she has a difficult time reaching down to put her socks on and tie her shoe. She voices that she is taking 3 Celebrex per day and is told that she should only take a maximum of 2 per day Feb, Weight gain (ICD-10 - R63.5) She has gained three pounds since last seen. Her TSH is normal at 2.40. Feb, Weakness (ICD-10 - R53.1) She voices that she has had some generalized weakness/exhaustion recently. She says when she takes her weeds to the weed pile by the time she gets back she feels like she does not have her strength. She does not have any chest discomfort. I did recommend a cardiac work up and she refuses. She voices that she is not short of breath. She used to be able to do 1/2 hour on her exercise bike and now can only do 10 minutes. She feels it is because oer age. If she changes her mind and would like a cardiac work up she should call and we will discuss a stress test. It is possible that the arthritis and hip pain are contributing to the weakness that she has. She had a normal stress test in 2006 per cardiology note. Feb, Lipoma (ICD-10 - D17.9) Suspect she has lipomas on her leg. These are not painful for her and she has not noticed that they have gotten larger in size. If they do get larger she should let me know and we will refer to a general surgeon. Feb, Asthma (ICD-10 - J45.909) She voices that since she started taking Zyrtec daily she has not had any flare ups with her Asthma. 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 She voices that she does not follow with urology any longer because they could not help her. She does take the Cranberry tablets and they do help her but she continues to deal with urine issues. Feb, Encounter for screening for osteoporosis (ICD-10 - Z13.820) I did review her DEXA scan results with her today and provided her with a copy of her results. Will repeat this scan in two years. 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 After discussion she decides she is going to continue with the ASA with food. Discussed cholesterol results with patient today. Total is 162. HDL is 53. LDL is 89. Triglycerides are 99. Readings are at goal. She is to continue with above medications daily as directed. Aug, Hyperglycemia (ICD-10 - R73.9) Discussed blood sugar readings with patient today. Glucose is 91. HgA1C is 5.3 which is normal. Aug, Arthritis (ICD-10 - M19.90) She is going to begin using Celebrex twice a day. She should take the Celebrex with food. She will need to stop the Oxaprozin. She can continue to take her ASA daily. Side effects/risks/bene fits of medication were reviewed. She is going to finish the Oxaprozin because she has a full bottle and then will start the Celebrex. Aug, Thoracic back pain (ICD-10 - M54.6) She voices that her upper back hurts, when she stands it hurts. She has trouble doing dishes. Aug, Hip pain (ICD-10 - M25.559) right hip She voices that her right hip bothers her, this causes pain down into her right leg. Aug, Leg pain (ICD-10 - M79.606) right leg She has trouble with her right leg, voices that ever since she had her right knee replaced the leg has bothered her. Aug, Weakness (ICD-10 - R53.1) bilateral leg weakness She does voice that she has weakness in both of her legs. Aug, Weight gain (ICD-10 - R63.5) Aug, Other correction (current) drug therapy (ICD-10 - Z79.899) Aug, Cystitis (ICD-10 - N30.90) Continue with above medications daily as directed. 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 She has considered taking Ibuprofen. We discussed her taking ASA with new recommendations that have come out. Taking Ibuprofen along with ASA increases the risk of side effects. If she wants to take Ibupfren she should not take the ASA, she would need to choose one or the other. Ibuprofen is not risk free. Side effects/risks/benef its of Ibuprofen were reviewed. She has Barretts esophagus so I did explain to her that the safest medication for her to take would be Celebrex. Aug, Thoracic kyphosis (ICD-10 - M40.204) Aug, Cervical pain (ICD-10 - M54.2) She voices that her right hand does go numb at times. I would like to order an x-ray of her neck. Aug, Encounter for screening for osteoporosis (ICD-10 - Z13.820) I would like to order a DEXA scan to be done to rule out abnormalities. 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 Aug, Other She voices that in the mornings she has spells where her legs are weak but after she sits down she comes out of it and she is fine. Her blood pressure in the office today was elevated at 152/90. I did recheck this myself and her systolic reading was elevated (150/78) but I suspect it is due to being in the office. I did recommend that she periodically monitor her blood pressure on her own and track readings. She is to call me with three readings. Based on those readings we will determine if she needs to be placed on medication. wywy Other Evaluation + Plan note No data available for this section [facility] evaluation + Plan note Future Appointments Appointment Date:12/22/2023 08:30:00 AM Scheduled Provider:MARY ZABALA PA-C Location:[facility] Appointment Type:URO Office Visit [facility] evaluation + Plan note Future Appointments Appointment Date:12/15/2023 02:20:00 PM Scheduled Provider:MARY ZABALA PA-C Location:[facility] Appointment Type:URO Office Visit Diagnostic Tests Pending * Urine [facility] Future Appointments Appointment Date:12/15/2023 02:20:00 PM Scheduled Provider:MARY ZABALA PA-C Location:[facility] Appointment Type:URO Office Visit [facility] evaluation + Plan note Future Appointments Appointment Date:06/21/2024 08:40:00 AM Scheduled Provider:MARY ZABALA PA-C Location:[facility] Appointment Type:URO Office Visit [facility] evaluation noteNo InformationNort KDPOF Other evaluation noteNo assessment information available [facility] Work Phone: evaluvhegb noteNoEstrogen Gene Test Other evalumcghk note* Diagnosis Onset Date Resolution Status Anxiety acute Arthritis acute Asthma acute Barretts esophagus acute Cystitis acute Hyperglycemia acute Hyperlipidemia acute Numbness and tingling in right hand acute Vitamin D deficiency acute [facility] Work Phone: Hislzfb general Narrative - Reported* Type Description Date Medical History asthma [493.90] Medical History hyperlipidemia [272.0 V58.69 ALT ] Medical History osteoarthritis hands, feet, knee s [715.09] Medical History 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 Baldwin), Colonoscopy (2011 repeat in 5 years, Dr. Amezquita) Medical History EGD 06/20/15 Medical History 04/05/19 EGD-Barretts Surgical History tonsillectomy 1950 Surgical History hysterectomy, cystoc roxanna, rectocele (Dr. Parks) 1996 Surgical History L2 - L3 decompressio n laminectomy and culture of paraspinal / epidural abscess (Dr. Rowan) 03-05-04 Surgical History arthroscopy right knee (Dr. Angi brown) -2005 Surgical History cataract, left 2006 Surgical History cataract, right 2007 Surgical History colonoscopy (Dr. Amezquita) 10-01 Surgical History LT knee replacement (Dr. Leach [facility]) 05-01-2012 Surgical History EGD (Dr. Medina) 06-09-12 / 06-20-15 Surgical History right knee replacement- Dr. Angi brown 10-04-13 Surgical History bladder scope ordered by Dr Latoya corbin 02/20/[address] scan bladder 02/20 Surgical History Eye Capsulotomy Dudenhofer 05/13 Surgical History mammogram 06/12/17 Hospitalization History pneumonia 1958 [facility] Other Hisyhvm general Narrative - [facility] Other Hisuyfs general Narrative - Reported* Type Description Date Medical History asthma [493.90] Medical History hyperlipidemia [272.0 V58.69 ALT ] Medical History osteoarthritis hands, feet, knee s [715.09] Medical History 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 Baldwin), Colonoscopy (2011 repeat in 5 years, Dr. Amezquita) Medical History EGD 06/20/15 Medical History 04/05/19 EGD-Merritt Surgical History tonsillectomy 1950 Surgical History hysterectomy, cystoc roxanna, rectocele (Dr. Parks) 1996 Surgical History L2 - L3 decompressio n laminectomy and culture of paraspinal / epidural abscess (Dr. Rowan) 03-05-04 Surgical History arthroscopy right knee (Dr. Angi brown) -2005 Surgical History cataract, left 2006 Surgical History cataract, right 2007 Surgical History colonoscopy (Dr. Amezquita) 10-01 Surgical History LT knee replacement (Dr. Hany GOMEZ) 05-01-2012 Surgical History EGD (Dr. Medina) 06-09-1206-20-15 Surgical History right knee replacement- Dr. Angi brown 10-04-13 Surgical History bladder scope ordered by Dr Klein ers 02/20/[address] scan bladder 02/20 Surgical History Eye Capsulotomy Dudenhofer 05/13 Surgical History mammogram 06/12/17 Surgical History Colonoscopy, Dr. 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 Baldwin), Colonoscopy (2011 repeat in 5 years, Dr. Amezquita) Medical History EGD 06/20/15 Medical History 04/05/19 EGD-Merritt Surgical History tonsillectomy 1950 Surgical History hysterectomy, cystoc roxanna, rectocele (Dr. Parks) 1996 Surgical History L2 - L3 decompressio n laminectomy and culture of paraspinal / epidural abscess (Dr. Rowan) 03-05-04 Surgical History arthroscopy right knee (Dr. Angi brown) Surgical History cataract, left 2006 Surgical History cataract, right 2007 Surgical History colonoscopy (Dr. Amezquita) 10-01 Surgical History LT knee replacement (Dr. Leach - [facility]) 05-01-2012 Surgical History EGD (Dr. Medina) 06-09-1206-20-15 Surgical History right knee replacement- Dr. Angi brown 10-04-13 Surgical History bladder scope ordered by Dr Klein ers 02/20/[address] scan bladder 02/20 Surgical History Eye Capsulotomy Dudenhofer 05/13 Surgical History mammogram 06/12/17 Surgical History Colonoscopy, Dr. Mike sandoval, no further colonoscopy needed on this patient 11-20-2020 Surgical History Right total hip replacement. Hospitalization History pneumonia 1959 [facility] Other Hospital Discharge instructions No data available for this section [facility] No data available for this section [facility] reason for visit Narrativereview labs, discuss multiple issues, see treatment plan for further informationNortLifec[facility] Other Summary Purpose Family History Relationship Condition Age at Onset Recorded Date/T yovani father Malignant neoplasm Unknown family member Malignant neoplasm Unknown grandparent Malignant neoplasm Unknown grandparent Malignant neoplasm of rectum Unknown Relationship Condition Age at Onset Recorded Date/T yovani Not Specified Hypertension Unknown father Malignant neoplasm Unknown family member Malignant neoplasm Unknown grandparent Malignant neoplasm Unknown grandparent Malignant neoplasm of rectum Unknown Relationship Condition Age at Onset Recorded Date/T yovani Not Specified Hypertension Unknown father Malignant neoplasm Unknown family member Malignant neoplasm Unknown grandparent Malignant neoplasm Unknown grandparent Malignant neoplasm of rectum Unknown brother Unknown father Hodgkin lymphoma Unknown Unknown Not Specified Unknown natural son Family history of mental disorder Unknown sister Malignant neoplasm Unknown Relationship Condition Age at Onset Recorded Date/T yovani Not Specified Hypertension Unknown father Malignant neoplasm Unknown family member Malignant neoplasm Unknown grandparent Malignant neoplasm Unknown grandparent Malignant neoplasm of rectum Unknown brother Unknown father Hodgkin lymphoma Unknown Unknown mother Unknown son Family history of mental disorder Unknown sister Malignant neoplasm Unknown Advance Directives Advance Directive Response Recorded Date/ Time Advance Directives No May 9:03am Advance Directive Response Recorded Date/ Time Advance Directives No May 8:03am Reason for Referral Reason appt pt needs cons ult to evaluate right hip pain Diagnosis 1 Hip pain (M25.559) Referral Organization [facility] Referring Provider First Name Gonzalez Referring Provider Last Name Viry Referring Provider Specialty Family Prac belen Referred Organization [facility] Referred Provider Artur Oliveira II Referred Address [address] [place],[id number] Referred Provider Specialty Orthopedic S urgery Referral Priority Routine General Notes No Atkinson 03/05/2022 11:04:07 AM > referral sent p2p. pt understands she will be contacted to schedule this appt. Reason appt consult for e nathanael and treatment of recurrent UTIs Diagnosis 1 Cystitis (N30.90) Referral Organization [facility] Referring Provider First Name Gonzalez Referring Provider Last Name Lisajorge Referring Provider Specialty Family Prac belen Referred Organization [facility] Referred Provider FRANCOISGwendolynVANNESAS Referred Address [address],[place], [place],[address] Referred Provider Specialty Urology Referral Priority Routine General Notes No Atkinson 04/16/2023 12:19:36 PM > referral faxed with visit note, last several UA/culture results and insurance cards. pt understands that she will be contacted to schedule this appt. Chief Complaint and Reason for Visit Chief Complaint labs Chief Complaint labs m16.11 m25.551 z01.818 Chief Complaint m16.11 m25.551 z01.8 18 See order Right Hip Pain Chief Complaint m16.11 m25.551 z01.8 18 See order Right Hip Pain Right Total Hip Pre Op Right Hip Pain Chief Complaint See order Right Hip Pain Right Total Hip Pre Op Right Hip Pain Chief Complaint Right Hip Pain Z47.1 Z96.641 Chief Complaint Z47.1 Z96.641 Chief Complaint Z96.641 See order Chief Complaint See order See order See order Chief Complaint See order See order See order See order Chief Complaint C/J N32.81 R39.82 Chief Complaint C/J N32.81 R39.82 n30.90 See order Chief Complaint See order C/J N32.81 R39.82 Chief Complaint See order Chief Complaint See order review labs Reason for Visit Anxiety Arthritis Asthma Barretts esophagus Cystitis Hyperglycemia Hyperlipidemia Numbness and tingling in right hand Vitamin D deficiency Additional Source Comments INFORMATION SOURCE (unrecogn ized section and content) DATE CREATED AUTHOR 02/28/2021 [facility] DATE CREATED AUTHOR AUTHOR'S ORGANIZ ATION 11/25/2023 [facility] DATE CREATED AUTHOR AUTHOR'S ORGANIZ ATION 04/27/2024 [facility] DATE CREATED AUTHOR AUTHOR'S ORGANIZ ATION 06/24/2024 [facility] REASON FOR VISIT (unrecogniz ed section and content) review labsclinicalNo Inform ationmedicationCONSULT DR BAIRES RT HIP PAIN WX FROrtho consult noteR INTRA ARTICULAR HIP JOINT INJmedicationClinical Acute Illness3 MONo InformationNo InformationNo InformationH & P RIGHT TOTAL HIP [id number] InformationWound Vacwound vacPOST OP FOLLOW UP RT HIP4 1/2 WEEK RECHECKOVERDUE FOR ROUTINE FOLLOW UP FOR SCHNEIDER'S6 WK RECHECKClinical Acute MedicineClinicalreview labsClinicalpossible UTIClinicalrefillClinicalUTI sxreview labs Care Teams (unrecognized sec tion and content) Personnel Name: Gonzalez Baires DO Address: Address: [address] [place] [id number] Team Status: Active Member Role Status Elizabeth Baires DO Primary Care Provider Active Team Status: Inactive Member Role Status Elizabeth Baires DO Primary Care Provide r, Attending Provider Active Start: October 15, 2023 End: October 15, 2023 Team Status: Inactive Member Role Status Dates Vannessa Suresh MD Attending Provider Active Start : December 02, 2023 End: December 02, 2023 Gonzalez Baires DO Primary Care Provider Active S tart: December 02, 2023 End: December 02, 2023 Team Status: Active Member Role Status Dates Vannessa Suresh MD Attending Provider Active Start : October 07, 2023 Gonzalez Baires DO Primary Care Provider Active S tart: October 07, 2023 Team Status: Inactive Member Role Status Elizabeth Baires DO Attending Provider Active Star t: October 08, 2023 End: October 08, 2023 Team Status: Inactive Member Role Status Elizabeth Baires DO Primary Care Provider Active Artur Oliveira II, MD Attending Provider Active Team Status: Inactive Member Role Status Elizabeth Baires DO Primary Care Provider, Attending Pro vider Active Team Status: Active Member Role Status Elizabeth Baires DO Primary Care Provider Active Artur Oliveira II, MD Attending Provider Active Team Status: Inactive Member Role Status Elizabeth Baires DO Primary Care Provider Active NON STAFF Attending Provider Active Team Status: Inactive Member Role Status Elizabeth Baires DO Attending Provider Active Team Status: Inactive Member Role Status Elizabeth Baires DO Primary Care Provide r, Attending Provider Active Start: April 19, 2024 End: April 19, 2024 Team Status: Inactive Member Role Status Dates Gonzalez Baires , DO Primary Care Provide r, Attending Provider Active Start: April 26, 2024 End: April 26, 2024 Goals (unrecognized section and content) Goals may be documented in a n alternate section FOR RECORDS PERTAINING TO PATIENTS WHO ARE OR HAVE BEEN ENROLLED IN A CHEMICAL DEPENDENCY/SUBSTANCEABUSE PROGRAM, SOME INFORMATION MAY BE OMITTED. This clinical summary was aggregated from multiple sources. Caution should be exercised in using it in the provision of clinical care. This summary normalizes information from multiple sources, and as a consequence, information in this document may materially change the coding, format and clinical context of patient data. In addition, data may be omitted in some cases. CLINICAL DECISIONS SHOULD BE BASED ON THE PRIMARY CLINICAL RECORDS. [employer] provides no warranty or guarantee of the accuracy or completeness of information in this document.
== END 2024-06-30 08:10 | disposition home or self-care (01) ==
LOC: US 08:09
PROVIDERS: PCP Family Medicine; Visit Provider Physician Assistant
DX: R39.82 Chronic bladder pain (principal); N20.0 Calculus of kidney; N32.81 Overactive bladder
CPT/HCPCS: 74018; 76775